=== PATIENT | female | born 1950 | race Caucasian/White ===

== ENCOUNTER 2020-07-15 06:02 | Outpatient (REF) | payer MEDICARE, SELFPAY | END 2020-07-15 06:03 | disposition home or self-care (01) | LOC: HO.LAB 06:02 | PROVIDERS: Visit Provider Internal Medicine | DX: Z20.828 Contact with and (suspected) exposure to other viral communicable diseases (principal) | CPT/HCPCS: C9803; U0003 ==

== ENCOUNTER 2021-06-25 07:31 | Outpatient (REF) | payer MEDICARE, SELFPAY ==
[2021-06-25 07:57] LABS: Hematocrit 40.8 % (37-47); Hemoglobin 13.2 g/dl (12.0-16.0); Mean Corpuscular HGB Conc 32.4 g/dl (31.0-35.0); Mean Corpuscular Hemoglobin 31.3 pg (27.0-33.0); Mean Corpuscular Volume 96.7 fL (80-98); Mean Platelet Volume 9.8 fL (9.4-12.3); Platelet Count 236 X10*3/uL (160-400); Red Blood Count 4.22 X10*6/uL (4.20-5.50); Red Cell Distribution Width 12.3 % (11.0-16.0); White Blood Count 6.1 X10*3/uL (4.8-10.8)
[2021-06-25 08:17] LABS: Alanine Aminotransferase 11 U/L (0-31); Albumin Level 4.1 g/dL (3.5-5.0); Alkaline Phosphatase 74 U/L (39-117); Anion Gap 11 (12-20); Aspartate Amino Transferase 15 U/L (5-31); Bilirubin Total 0.9 mg/dL (0.0-1.0); Blood Urea Nitrogen 9 mg/dL (9-16); Calcium 9.1 mg/dL (8.4-10.2); Carbon Dioxide 27 mmol/L (22-29); Chloride 107 mmol/L (96-108); Estimated Glomerular Filt Rate > 60; Glucose Fasting 93 mg/dL (60-99); Potassium 4.9 mmol/L (3.3-5.1); Sodium 140 mmol/L (135-145); Total Protein 6.8 g/dL (6.5-8.0)
[2021-06-25 08:39] LABS: TSH reflex Free T4 1.44 uIU/mL (0.32-4.0)
== END 2021-06-25 07:32 | disposition home or self-care (01) ==
LOC: HO.LAB 07:31
PROVIDERS: PCP Hospitalist; Visit Provider Hospitalist
DX: Z00.01 Encounter for general adult medical examination with abnormal findings (principal)
CPT/HCPCS: 36415; 80053; 84443; 85027

== ENCOUNTER 2022-08-02 13:36 | Emergency (ER) | payer OTHER, MEDICARE, SELFPAY ==
--- NOTE | ~2022-08-02 | XR_ITS ---
EXAMINATION: XR hand LT min 3V CLINICAL INFORMATION: Trauma COMPARISON: None TECHNIQUE: 3 views of the hand XR/XR hand LT min 3V FINDINGS/IMPRESSION: No fracture or dislocation. Moderate degenerative changes of the third distal interphalangeal joint, with mild degenerative changes at the additional distal interphalangeal joints. Soft tissues are unremarkable, with no radiopaque retained foreign body.
[2022-08-02 14:01] VITALS: BP 134/57; PULSE 84; RESP 18; TEMP 36.4; O2SAT 97; BMI 28.9
--- NOTE | 2022-08-02 14:01 | ED_ITS ---
HPI - Extremity Injury (Upper) General Chief Complaint: Wound/Laceration Stated Complaint: Finger lac/work inj Time Seen by Provider: 08/02/22 15:28 Source: patient Mode of arrival: ambulatory Limitations: no limitations History of Present Illness HPI narrative: 72-year-old female here with laceration to the left 1st finger. Patient reports she cut her finger on a rolling cage at work. No weakness, numbness or tingling of the digit. Tetanus is up-to-date. Related Data Previous Rx's Medication Instructions Recorded naproxen 500 mg tablet,delayed 500 mg PO BID PRN pain, moderate 1 12/02/21 release month #60 tabs cyclobenzaprine 10 mg tablet 10 mg PO TID PRN muscle spasm 1 03/04/22 month #90 tabs gabapentin 600 mg tablet 600 mg PO BEDTIME 1 month #30 tabs 03/04/22 meloxicam 15 mg tablet 15 mg PO DAILY #30 tabs 03/04/22 Allergies Allergy/AdvReac Type Severity Reaction Status Date / Time No Known Drug Allergies Allergy Mild NONE Verified 06/15/22 16:00 [NO KNOWN DRUG ALLERGIES] Review of Systems Review of Systems: Yes all other systems are reviewed and are negative Constitutional: Constitutional: Reports no additional constitutional complaints, Denies body ache(s), Denies chills, Denies fever(s), Denies headache(s) and Denies weakness Eyes: Eyes: Reports no additional eye complaints and Denies change in vision ENT: Reports system reviewed and no additional complaints, except as documented, Denies dizziness, Denies headache(s), Denies nasal congestion, Denies nasal discharge and Denies neck pain Cardiovascular: Cardiovascular: Reports no additional cardiovascular complaints, Denies chest pain, Denies leg edema and Denies dyspnea Respiratory: Respiratory: Reports no additional respiratory complaints, Denies cough and Denies dyspnea Gastrointestinal: Gastrointestinal: Reports no additional gastrointestinal complaints, Denies abdominal pain, Denies diarrhea, Denies nausea and Denies vomiting Genitourinary: Genitourinary: Reports no additional female genitourinary complaints and Denies urinary incontinence Musculoskeletal: Musculoskeletal: Reports no additional musculoskeletal complaints, Denies back pain, Denies arthralgias, Denies joint swelling, Denies neck pain, Denies numbness and Denies tingling Integumentary/Breasts: Skin/Breast: Reports system reviewed and no additional complaints, except as docu and Denies rash Neurologic: Reports system reviewed and no additional complaints, except as documented, Denies Abnormal speech present, Denies dizziness, Denies headache(s), Denies numbness, Denies tingling and Denies weakness PMFSH Past Medical History Attestation statement: The following information was validated with the patient. Source: old records reviewed and nursing notes reviewed Medical History Advanced cardiac disease No pertinent past medical history Surgical History History of cervical spinal surgery History of knee replacement procedure of right knee History of lumbar fusion History of medial meniscus repair of right knee History of open reduction and internal fixation (ORIF) procedure Family History Family History Father Emphysema lung Mother TIA (transient ischemic attack) Alzheimers disease Sister Breast cancer Son Hypertension Down syndrome Daughter In good health Social History Social History Housing: House Patient Tobacco Use Status: Never used Tobacco e-Cigarette/Vaping Use: Never Used Second Hand Smoke Exposure: No Advance Directives: No Advance Directives Information Provided: Yes service: No Current occupational status: employed Cognitive needs: No Hearing needs: No Vision needs: No Physical Exam Vital Signs: Vital Signs: Last Vital Signs Temp 97.6 F 08/02/22 14:01 Pulse 84 08/02/22 14:01 Resp 18 08/02/22 14:01 BP 134/57 L 08/02/22 14:01 Pulse Ox 97 08/02/22 14:01 O2 Del Method 08/02/22 14:01 BMI result Body Mass Index 28.9 Const: General: cooperative, healthy appearing, comfortable and no acute distress Orientation/consciousness: patient oriented x3 Limitations: no limitations HEENT: Head: Yes normal to inspection Ears: hearing grossly normal bilaterally General nose exam: Normal external nose present Face and sinus: Yes normal facial exam Mouth: Normal oral and palatal mucosa present Throat: Yes posterior oropharynx normal Eyes: General: appearance normal, both eyes and all related structures Pupils: Equal, round and reactive pupils present Neck: Neck: Yes normal visual inspection Chest: Chest palpation & inspection: normal inspection of the chest Resp: Effort & Inspection: normal respiratory effort Auscultation: clear to auscultation bilaterally Cardio: Rate: regular rate Rhythm: regular rhythm Peripheral pulses: Peripheral pulses 2+ throughout GI: Inspection: Yes normal to inspection Palpation (GI): Soft to palpation and nontender Auscultation: normal bowel sounds Back/Spine/Pelvis: Thoracic/Lumbar Spine: thoracic and lumbar spine normal to inspection Skin: General skin exam: no rashes or lesions noted Neuro: General: patient oriented x3, no focal motor deficits and normal sensation to monofilament Cranial nerves: Yes Equal, round and reactive pupils present Cognition (Neuro): normal cognition Speech: No Abnormal speech present Gait exam (Neuro): Normal gait present Motor exam (neuro): 5/5 motor strength present throughout Extrem: Other: To the dorsal left index finger there is a 2cm laceration. FROM of the digit. Sensation normal. General: Yes normal to inspection Course Course Course Narrative: This is rapid medical exam. Deferred additional HPI, ROS, PE to the primary provider. 72 yo female [id number] here with laceration to the left index finger from crush injury while working. Tetanus is up-to-date. Will check x-rays. Patient will need wound repair with sutures. VSS Reevaluation(s) Reevaluation #1: X-ray shows no bony abnormality. See procedure note for wound repair Medications Administered Discontinued Medications Generic Name Dose Route Start Last Admin Trade Name Freq PRN Reason Stop Dose Admin Lidocaine HCl 2 ml 08/02/22 15:04 08/02/22 15:08 Lidocaine Hcl 1 % Mpf 2 Ml Vial INFILTRATI 08/02/22 15:05 2 ml ONCE ONE Administration Lidocaine HCl 2 ml 08/02/22 15:04 08/02/22 15:08 Lidocaine Hcl 1 % Mpf 2 Ml Vial INFILTRATI 08/02/22 15:05 2 ml ONCE ONE Administration MDM - Extremity Injury (Upper) MDM Narrative Medical decision making narrative: 72-year-old female [id number] here with laceration to the left index finger. Tetanus is up-to-date. There was a crush injuries or x-ray will be obtained. Patient will need laceration repair with sutures. See procedure note Medical Records Attestation: I reviewed the patient's medical records. Lab Data Attestation: I reviewed the patient's lab results. Imaging Data hand x/-ray: Attestation: I personally reviewed and interpreted this imaging study as follows: Radiologist's impression: [address] [address] XRay Report Signed Patient: Simin Tavarez MR#: [id number] : 1950 Acct:[id number] Age/Sex: 72 / F ADM Date: 08/02/22 Loc: HO.ED Attending Dr: Ordering Physician: Valentina Gregory NP Date of Service: 08/02/22 Procedure(s): XR hand LT min 3V Accession Number(s): [id number] cc: Valentina Gregory NP~ EXAMINATION: XR hand LT min 3V CLINICAL INFORMATION: Trauma? COMPARISON: None? TECHNIQUE: 3 views of the hand ? XR/XR hand LT min 3V FINDINGS/IMPRESSION: ? No fracture or dislocation. ? Moderate degenerative changes of the third distal interphalangeal joint, with mild degenerative changes at the additional distal interphalangeal joints. ? Soft tissues are unremarkable, with no radiopaque retained foreign body. Procedures Laceration Laceration 1: Site: hand (index finger) Side (If applicable): left Size (cm): 2 Description: linear Depth: simple, single layer Pre-repair: wound explored and irrigated extensively Skin layer closed with: vicryl Size (cm): 5-0 Number of sutures: 5 Technique: simple, interrupted Nerve Block Nerve Block 1: Local Anesthetic: lidocaine 1% Amount of anesthesia used (mL): 2 Side: left Nerve Blocks: digital Procedure Successful: Yes Patient Tolerated Procedure: well Complications: none Discharge Plan Discharge Clinical Impression: Laceration Patient Disposition: Home, Self-Care Instructions: Finger Laceration (ED) Additional Instructions: sutures out in 7-10 days Prescriptions: No Action gabapentin 600 mg tablet 600 mg PO BEDTIME 30 Days Qty: 30 0RF Rx Instructions: take one tab at bed time for 5 days if not improved increase to one and a half at bed time cyclobenzaprine 10 mg tablet 10 mg PO TID PRN (Reason: muscle spasm) 30 Days Qty: 90 1RF meloxicam 15 mg tablet 15 mg PO DAILY Qty: 30 1RF naproxen 500 mg tablet,delayed release (DR/EC) 500 mg PO BID PRN (Reason: pain, moderate) 30 Days Qty: 60 4RF Referrals: Marian Nur LABOR RELATIONS SUPERVISOR [Primary Care Provider] - 1 week Interventions: ED Discharge Assessment Last Done: 08/02/22 15:28 Discharge Date/Time: 08/02/22 15:35
[2022-08-02] MEDS: Lidocaine HCl 1 % MPF 2 ML VIAL INFILTRATI ×2 (15:08)
== END 2022-08-02 15:35 | disposition home or self-care (01) ==
LOC: HO.ED 15:35
PROVIDERS: Emergency Provider Emergency Medicine; PCP Hospitalist
DX: S61.412A Laceration without foreign body of left hand, initial encounter (principal); W26.9XXA Contact with unspecified sharp object(s), initial encounter; Y93.9 Activity, unspecified; Y92.9 Unspecified place or not applicable; Y99.0 Civilian activity done for income or pay
CPT/HCPCS: 12001; 73130; 99282; 99283

== ENCOUNTER 2022-08-25 08:59 | Outpatient (REF) | payer MEDICARE, SELFPAY ==
--- NOTE | ~2022-08-25 | XR_ITS ---
EXAMINATION: XR KNEE, LEFT CLINICAL INFORMATION: Sprain COMPARISON: None TECHNIQUE: Four views of the left knee. FINDINGS: Bone alignment is normal. No fracture or dislocation. Osteopenia. Chondrocalcinosis. Moderate joint effusion. XR/XR knee LT 4V IMPRESSION: No fracture or dislocation. Osteopenia. Chondrocalcinosis. Joint effusion.
== END 2022-08-25 09:00 | disposition home or self-care (01) ==
LOC: HO.HMGCX 08:59
PROVIDERS: PCP Hospitalist; Visit Provider Internal Medicine
DX: S83.92XA Sprain of unspecified site of left knee, initial encounter (principal)
CPT/HCPCS: 73564

== ENCOUNTER 2022-09-10 07:39 | Outpatient (REF) | payer MEDICARE, SELFPAY ==
--- NOTE | ~2022-09-10 | XR_ITS ---
EXAMINATION: XR KNEE AP STANDING XR KNEE LEFT AXIAL CLINICAL INFORMATION: Pain. COMPARISON: Prior radiographs, most recently 08/25/2022. TECHNIQUE: AP bilateral standing view of the knees was obtained. FINDINGS: Bony alignment and mineralization are normal. No significant varus or valgus configuration is seen bilaterally. The lateral, medial and patellofemoral joint space compartments of the left knee are well-maintained. There is mild chondrocalcinosis of the lateral joint space compartment. No fracture or dislocation is seen. There is no foreign body. There is an intact right knee total arthroplasty. XR/XR knee standing BI IMPRESSION: 1. The joint space compartments of the left knee are well-maintained. 2. There is mild chondrocalcinosis of the lateral joint space compartment of the left knee, which can be associated with CPPD. 3. There is an intact right knee total arthroplasty.
--- NOTE | ~2022-09-10 | XR_ITS ---
EXAMINATION: XR KNEE AP STANDING XR KNEE LEFT AXIAL CLINICAL INFORMATION: Pain. COMPARISON: Prior radiographs, most recently 08/25/2022. TECHNIQUE: AP bilateral standing view of the knees was obtained. FINDINGS: Bony alignment and mineralization are normal. No significant varus or valgus configuration is seen bilaterally. The lateral, medial and patellofemoral joint space compartments of the left knee are well-maintained. There is mild chondrocalcinosis of the lateral joint space compartment. No fracture or dislocation is seen. There is no foreign body. There is an intact right knee total arthroplasty. XR/XR knee LT 1V IMPRESSION: 1. The joint space compartments of the left knee are well-maintained. 2. There is mild chondrocalcinosis of the lateral joint space compartment of the left knee, which can be associated with CPPD. 3. There is an intact right knee total arthroplasty.
== END 2022-09-10 07:40 | disposition home or self-care (01) ==
LOC: HO.HOSX 07:39
PROVIDERS: Visit Provider Physician Assistant
DX: M17.12 Unilateral primary osteoarthritis, left knee (principal); M25.862 Other specified joint disorders, left knee
CPT/HCPCS: 20610; 73560; 73565; 99202; J1040

== ENCOUNTER → 2023-02-15 11:14 | Outpatient (BNVA) | payer MEDICARE, SELFPAY | PROVIDERS: PCP Hospitalist; Visit Provider Physician Assistant | DX: M17.12 Unilateral primary osteoarthritis, left knee (principal) | CPT/HCPCS: 20610; 99212; J1040 ==

== ENCOUNTER 2023-03-22 10:02 | Outpatient (AMB) | payer MEDICARE, SELFPAY ==
--- NOTE | 2023-03-22 10:06 | A.OFFVIS_ITS ---
Intake Vital Signs 03/22/23 10:07 Height 5 ft 4 in Weight 153 lb BMI 26.3 Intake Visit Reasons: discuss LT TKA Intake Note: Simin Stern is a 72 year old female who presents today to discuss upcoming Left TKA 06/22/23. Allergies No Known Drug Allergies [NO KNOWN DRUG ALLERGIES] Allergy (Mild, Verified 02/15/23 11:21) NONE HPI discuss LT TKA HPI Details Simin is a 72 year old woman with left knee OA, who presents to discuss her upcoming TKA, DOS: 06/22/23. She has pain with daily activity, worse with prolonged walking or using stairs. She says she used to walk several miles a day, but is now limited to ~1 mile by pain. She has been following with THIEN Sanchez and received multiple steroid injections, with some relief. Her most recent was on 02/15/23. She finds some relief from Naproxen. She has a Hx of a right TKA done by Dr. Drake in 2014. She has no complaints in regards to her right knee She complains of pain in her shoulder, mostly when lying down. She takes a muscle relaxer for this. [facility], [facility] Medical History Advanced cardiac disease No pertinent past medical history Surgical History History of cervical spinal surgery History of knee replacement procedure of right knee History of lumbar fusion History of medial meniscus repair of right knee History of open reduction and internal fixation (ORIF) procedure Family History Father Emphysema lung Mother TIA (transient ischemic attack) Alzheimers disease Sister Breast cancer Son Hypertension Down syndrome Daughter In good health Social History Housing: House Patient Tobacco Use Status: Never used Tobacco e-Cigarette/Vaping Use: Never Used Second Hand Smoke Exposure: No service: No Current occupational status: employed Current occupation: [employer]/ rt hand Cognitive needs: No Hearing needs: No Vision needs: No Review of Systems Const All systems reviewed & are unremarkable except as noted in HPI and below Physical Exam Vital Signs: BMI result Body Mass Index 26.3 Const General: no acute distress, alert and awake Orientation/consciousness: patient oriented x3 HEENT Head: Yes normocephalic and Yes atraumatic Eyes EOM: EOMs intact bilaterally Resp Effort & Inspection: normal respiratory effort and able to speak in complete sentences Cardio Jugular venous distension: no JVD Skin General skin exam: turgor normal Rashes: no rashes Neuro General: patient oriented x3 Extrem Other: Left Knee: TTP medial joint line 0-135 degrees ROM Psych Appearance: grossly normal Affect: normal affect Attitude: cooperative Results Reviewed Results Reviewed: I personally reviewed relevant radiographs. Left knee chondrocalcinosis and moderate PF OA Assessment & Plan Assessment & Plan (1) Patellofemoral arthritis of left knee: Code(s): M17.12 - Unilateral primary osteoarthritis, left knee Plan: This is a 72 year old woman with moderate left knee OA. She has pain with daily activity, worse with prolonged ambulation or using stairs. She says she is limited in her ability to walk without pain, feels limited in her ADLs and that her QOL is diminished. She has a hx of some relief from steroid injection, but feels this is not as effective for her pain as it was in the past. SHe takes Naprosyn regularly and has for almost one year. Her most recent injection was on 02/15/23. I discussed her diagnosis and treatment options. She has a successful TKA in the past. I discussed the risks, benefits, and alternatives including, but not limited to, the risk of pain, infection, stiffness, need for further surgery as well as potential medical complications such as blood clots, pulmonary embolism and cardiac complications. I discussed the recovery timeline and process as well as the importance of PT. Simin is a good candidate for this surgery, and she wishes to proceed with this decision. She is scheduled for surgery on 06/22/23. Plan Scribed for Jeremiah Neumann MD by Rodríguez Castro medical cost consultant, on 03/22/23 at 10:25 AM, EST. Coding Level of Care Code Est Pt Level 4 (01136) Diagnoses Patellofemoral arthritis of left knee M17.12
[2023-03-22 10:07] VITALS: BMI 26.3
== END 2023-03-22 11:30 | disposition home or self-care (01) ==
PROVIDERS: PCP Hospitalist; Visit Provider Orthopaedic Surgery
DX: M17.12 Unilateral primary osteoarthritis, left knee (principal)
CPT/HCPCS: 99214

== ENCOUNTER → 2023-03-22 10:02 | Outpatient (BNVA) | payer MEDICARE, SELFPAY | PROVIDERS: PCP Hospitalist; Visit Provider Orthopaedic Surgery | DX: M17.12 Unilateral primary osteoarthritis, left knee (principal) | CPT/HCPCS: 99212 ==

== ENCOUNTER 2023-04-06 10:00 | Outpatient (RCR) | payer MEDICARE, SELFPAY ==
--- NOTE | 2023-03-09 09:30 | MHC.PT.EP ---
[facility] [place] Office [place] Office [place] Office [address] Austen Renee [address] [phone] F: [phone] F: [phone] F: [phone] F: [phone] Physical Therapy Plan of Care Date of Evaluation: Date of Surgery: May Diagnosis: PREHAB TKR, OA L KNEE Assessment: Pt IS 72 YO F REFERRED TO PT FROM [facility] ([facility]) FOR PREHAB L TKR. HAD R TKR IN NOVEMBER 2014. Pt TO HAVE L TKR May. HAD CORTISONE SHOT IN JANUARY, ALSO HAD CORTISONE SHOT IN AUG (LASTED TILL DECEMBER). TO MEET DR MTZ February PRESENTS TO PT WITH GOOD OVERALL ROM AND STRENGTH IN LES BUT WITH PAIN IN KNEES END RANGE OF FLEXION. Pt REPORTS LE CRAMPING. HAD R TKR 8 YRS AGO WITH GOOD RESULTS. SHOULD BENEFIT FROM PT 1X/WK TO HELP WITH LE FLEXIBILITY AND ENDURANCE TO HELP DECREASE CRAMPING AND PREPARE FOR L TKR IN MAY. Frequency and Duration: The patient will be seen 1X/WK X 4 WKS Short Term Goals: 1. INCREASED AWARENESS LE CARE 2. INCREASED AWARENESS TKR/PT INTERVENTION Alf Goals: 1. I HEP WITH DC EX PLAN 2. Pt TO REPORT LESS LE CRAMPING Treatment Plan: Modalities to reduce pain, spasms and effusion. Manual therapy to restore motion and function. Therapeutic exercise to improve strength and flexibility. Neuromuscular re-education for posture and balance. Therapeutic activities to return to functional activities of daily living. Electronically signed by: RAQUEL KO PT Please sign and return to therapist. Thank you for your referral.
--- NOTE | 2023-04-06 13:35 | MHC.PT.DC ---
[facility] [place] Office [place] Office [place] Office [address] [place]en Renee [address] [phone] F: [phone] F: [phone] F: [phone] F: [phone] Physical Therapy Discharge Report Diagnosis: PREHAB TKR, OA L KNEE Date of Surgery: May Date of Evaluation: 03/09/23 Date of Discharge: 04/06/23 Treatments to Date: 5 Cancellations to Date: No Shows to Date: Discharge Status: Achieved Goals Improved Function Independent with HEP Discharge Summary: HAS MET PT GOALS. TO HAVE TKR IN MAY. WILL LIKELY SEE POST OP Electronically signed by: RAQUEL KO PT Please sign and return to therapist. Thank you for your referral.
== END 2023-04-06 13:37 | disposition home or self-care (01) ==
LOC: HO.PT 10:00
PROVIDERS: PCP Hospitalist; Visit Provider Physician Assistant
DX: M17.12 Unilateral primary osteoarthritis, left knee (principal)
CPT/HCPCS: 97110; 97140; 97161; 97530; 97535

== ENCOUNTER 2023-05-26 15:31 | Outpatient (AMB) | payer MEDICARE, SELFPAY ==
--- NOTE | 2023-05-26 15:35 | MHC.PC.OV ---
Vital Signs 05/26/23 15:36 Height 5 ft 4 in Weight 151 lb 4 oz BMI 26.0 BP 124/74 Blood Pressure Location Rt brachial Position Sitting Respiration 12 Pulse 84 Pulse Source Pulse Oximeter Temp 97.8 F Temp Source Temporal Artery Scan Pulse Oximetry (%) 99 Oxygen Delivery Method Room Air Intake Visit Reasons: 06/22/[facility] [place]o/ Lt total knee Arthoplasty Intake Note: Patient states that her right arm has been bothering her again. Card Hanger Required: No Accompanied by: Self / Same As Patient Allergies No Known Drug Allergies [NO KNOWN DRUG ALLERGIES] Allergy (Mild, Verified 05/26/23 16:00) NONE Medication List - Last Reconciled 05/26/23 by Norma Zhang CNP naproxen (EC-Naproxen) 500 mg PO BID PRN Tobacco use date assessed: 12/08/22 Fall risk assessment: No Falls in past year Last assessed Fall Risk: 05/26/23 Dental Screening Dental Screen Date: 05/26/23 Did you have a dental visit in the last 12 months?: Yes Did you have a dental problem in the last 6 months where you did not have access to dental care?: No Was dental information given to patient?: Patient has dentist HPI HPI Comments History of Present Illness Details 73 y/o female presents for a preop exam She notes she has a procedure for left total knee arthroplasty schedule [place]. Neumann[place] [facility] [place] She has history of patellofemoral arthritis of the left knee She has not had blood work done in almost 2 years She reports lateral right right upper arm, proximal to the shoulder, off/on for the past weeks, worst at night and with ROM. She describes the pain as soreness which started last January and completely resolved with Naproxen prescribed by her PCP. She has been taking naproxen intermittently without relief. No tingling, numbness, or loss of sensation. She denies fall, injury, or trauma. [facility] Medical History No pertinent past medical history Surgical History History of knee replacement procedure of right knee History of cervical spinal surgery History of lumbar fusion History of medial meniscus repair of right knee History of open reduction and internal fixation (ORIF) procedure Family History Father Emphysema lung Mother TIA (transient ischemic attack) Alzheimers disease Sister Breast cancer Son Hypertension Down syndrome Daughter In good health Social History Housing: House Patient Tobacco Use Status: Never used Tobacco e-Cigarette/Vaping Use: Never Used Second Hand Smoke Exposure: No service: No Current occupational status: retired Cognitive needs: No Hearing needs: No Vision needs: No Review of Systems Const Details: Const Denies chills, Denies fatigue, Denies fever(s), Denies headache(s) and Denies weakness ENT Denies dizziness and Denies headache(s) Card Denies chest pain, Denies lightheadedness, Denies dyspnea and Denies other (Palpitations) Resp Denies cough, Denies dyspnea, Denies wheezing and Denies other ( shortness of breath) GI Denies abdominal pain, Denies melena, Denies hematochezia, Denies change in bowel habits, Denies dyspepsia and Denies nausea Denies hematuria and Denies dysuria Musc Reports as per HPI Skin/Breast Denies rash, Denies unusual bruising and Denies wounds Neuro Denies abnormal gait, Denies dizziness, Denies headache(s), Denies memory loss, Denies numbness, Denies Sensory deficit (Neuro), Denies tingling and Denies weakness Psych Denies anxiety, Denies depression, Denies memory loss Endo Denies cold intolerance, Denies fatigue, Denies heat intolerance, Denies polydipsia and Denies polyuria Aller/Immun Denies wheezing Physical exam (Primary Care) Vital Signs: Last Vital Signs Temp 97.8 F 05/26/23 15:36 Pulse 84 05/26/23 15:36 Resp 12 05/26/23 15:36 BP 124/74 05/26/23 15:36 Pulse Ox 99 05/26/23 15:36 Oxygen Delivery Method Room Air 05/26/23 15:36 BMI result Body Mass Index 26.0 Tobacco/Smoking Status: Tobacco use Status Tobacco use date assessed 12/08/22 05/26/23 15:47 Patient Tobacco Use Status Never used Tobacco 05/26/23 15:47 e-Cigarette/Vaping Use Never Used 05/26/23 15:47 Const Other: General: no acute distress and well developed Nutritional Appearance: well nourished Orientation/consciousness: patient oriented x3 [facility] Head: Yes normocephalic and Yes atraumatic Eyes General: appearance normal, both eyes and all related structures Pupils: Equal, round and reactive pupils present EOM: EOMs intact bilaterally Resp Effort & Inspection: normal respiratory effort Auscultation: clear to auscultation bilaterally Cardio Rate: regular rate Rhythm: regular rhythm Heart sounds: S1 normal heart sound present, S2 normal heart sound present, no gallops, no murmurs and no rubs GI Palpation (GI): No Abdominal aortic bruit present, Soft to palpation, nontender, No hepatosplenomegaly present and No Rebound tenderness present Auscultation: normal bowel sounds General: Yes no CVA tenderness Back/Spine/Pelvis Back: no CVA tenderness Cervical Spine: cervical ROM normal and No Cervical spine tenderness Thoracic/Lumbar Spine: thoraco-lumbar ROM normal, No pain with thoraco-lumbar ROM, No thoracic spinal tenderness and No lumbar spinal tenderness Extrem General: Yes normal to inspection, No edema and No calf tenderness Tenderness to palpation of the lateral right biceps. No edema, erythema, or visible signs of trauma Skin General: warm and dry. Normal skin color. Normal skin turgor Lesions: no lesions Rashes: no rashes Trauma: no lacerations or abrasions Wounds: no wounds Nails: normal Neuro General: patient oriented x3, gait normal and no focal neuro deficit Cranial nerves: Yes Equal, round and reactive pupils present Cognition (Neuro): normal cognition Gait exam (Neuro): Normal gait present Sensory Exam: No Sensory deficit (Neuro) Psych Appearance: grossly normal Affect: normal affect Attitude: cooperative Thought process: Normal thought process present Assessment and Plan Assessment & Plan (1) Preop examination: Code(s): Z01.818 - Encounter for other preprocedural examination Plan: Normal physical exam No current physical contraindications for left total knee arthroplasty He has not had blood work done in almost 2 years. CBC and CMP ordered. Advised to fast for 10-12 hours and get blood work done. Will review lab results and make changes to her care plan if warranted. She verbalized understanding and agreed with the plan. (2) Right arm pain: Code(s): M79.601 - Pain in right arm Plan: Reports lateral right right upper arm, proximal to the shoulder, off/on for the past weeks, worst at night and with ROM. She describes the pain as soreness. No fall, injury, or trauma. Likely muscle strain Tylenol ordered. Take as prescribed Warm/cool compresses encouraged Return with worsening or new symptoms Verbalized understanding and agreed with treatment plan. Orders: Orders Complete Blood Count Auto Diff Today Z01.818 - Encounter for other preprocedural examination Comprehensive [place]. Panel Fast Today Z01.818 - Encounter for other preprocedural examination Medications: New acetaminophen ER (Tylenol 8 Hour) 650 mg PO Q8H PRN 60 tabs 1RF pain Discontinued naproxen (EC-Naproxen) always take with food Discontinued Reason: Doctor's Order 500 mg PO BID PRN 60 tabs 2RF pain M19.90 - Unspecified osteoarthritis, unspecified site Coding Level of Care Code Est Pt Level 3 (81442) Diagnoses Preop examination Z01.818 Right arm pain M79.601
[2023-05-26 15:36] VITALS: BP 124/74; PULSE 84; RESP 12; TEMP 36.6; O2SAT 99; BMI 26.0
== END 2023-05-26 16:17 | disposition home or self-care (01) ==
PROVIDERS: PCP Hospitalist; Visit Provider Nurse Practitioner Family
DX: Z01.818 Encounter for other preprocedural examination (principal); M79.601 Pain in right arm
CPT/HCPCS: 99213

== ENCOUNTER 2023-05-27 07:04 | Outpatient (REF) | payer MEDICARE, SELFPAY ==
[2023-05-27 07:17] LABS: MANUAL DIFF FLAG NO
[2023-05-27 07:33] LABS: Basophils Absolute Auto 0.1 X10*3/uL (0.0-0.2); Basophils Percent Auto 0.9 % (0-2); Eosinophils Absolute Auto 0.2 X10*3/uL (0.0-0.4); Eosinophils Percent Auto 2.4 % (0-4); Hematocrit 41.6 % (37.0-47.0); Hemoglobin 13.8 g/dl (12.0-16.0); Imm Gran Abs Auto 0.02 X10*3/uL (0.00-0.03); Imm Gran Pct Auto 0.3 % (0.0-0.4); Lymphocytes Absolute Auto 2.3 X10*3/uL (1.2-4.9); Lymphocytes Percent Auto 34.5 % (20-40); Mean Corpuscular HGB Conc 33.2 g/dl (31.0-35.0); Mean Corpuscular Hemoglobin 31.2 pg (27.0-33.0); Mean Corpuscular Volume 94.1 fL (80.0-98.0); Mean Platelet Volume 9.7 fL (9.4-12.3); Monocytes Absolute Auto 0.5 X10*3/uL (0.1-1.2); Monocytes Percent Auto 8.1 % (2-11); Neutrophils Absolute Auto 3.6 x10*3/uL (2.0-8.3); Neutrophils Percent Auto 53.8 % (45-73); Platelet Count 261 X10*3/uL (160-400); Red Blood Count 4.42 X10*6/uL (4.20-5.50); Red Cell Distribution Width 11.7 % (11.0-16.0); White Blood Count 6.6 X10*3/uL (4.8-10.8)
[2023-05-27 07:54] LABS: Alanine Aminotransferase 8 U/L (0-31); Albumin Level 4.1 g/dL (3.5-5.0); Alkaline Phosphatase 76 U/L (39-117); Anion Gap 12 (12-20); Aspartate Amino Transferase 12 U/L (5-31); Bilirubin Total 0.6 mg/dL (0.0-1.0); Blood Urea Nitrogen 12 mg/dL (9-16); Calcium 9.1 mg/dL (8.4-10.2); Carbon Dioxide 28 mmol/L (22-29); Chloride 108 mmol/L (96-108); Estimated Glomerular Filt Rate > 60; Glucose Fasting 93 mg/dL (60-99); Potassium 4.2 mmol/L (3.3-5.1); Sodium 144 mmol/L (135-145); Total Protein 6.8 g/dL (6.5-8.0)
== END 2023-05-27 07:05 | disposition home or self-care (01) ==
LOC: HO.LAB 07:04
PROVIDERS: PCP Nurse Practitioner Family; Visit Provider Nurse Practitioner Family
DX: Z01.818 Encounter for other preprocedural examination (principal)
CPT/HCPCS: 36415; 80053; 85025

== ENCOUNTER 2023-06-17 12:45 | Outpatient (AMB) | payer MEDICARE, SELFPAY ==
--- NOTE | 2023-06-17 12:53 | MHC.OFFVIS ---
Intake Vital Signs 06/17/23 12:54 Height 5 ft 4 in Weight 151 lb BMI 25.9 Intake Visit Reasons: Pre-Op LT TKA 06/22/23NE Intake Note: Simin Stern a 73 year old female presents today for a preoperative left TKA, 06/22/23. Pain management agreement reviewed and signed. Allergies No Known Drug Allergies [NO KNOWN DRUG ALLERGIES] Allergy (Mild, Verified 06/17/23 12:57) NONE Medication List - Last Reconciled 06/17/23 by Norris Sanchez PA-C acetaminophen ER (Tylenol 8 Hour) 650 mg PO BID HPI HPI Comments History of Present Illness Details Ms Tavarez presents to the office today for preop visit. She is scheduled for left total knee arthroplasty with Dr. Neumann. She continues to have ongoing pain and difficulty with ambulation in the left knee, which is affecting her quality of life; therefore, she has elected to move forward with surgery. [facility] Medical History (Updated 06/08/23 @ 12:09 by Rody Kramer RN) Post-operative nausea and vomiting Hx of thoracic outlet syndrome Arthritis Surgical History H/O colonoscopy History of knee replacement procedure of right knee History of cervical spinal surgery History of lumbar fusion History of medial meniscus repair of right knee History of open reduction and internal fixation (ORIF) procedure Family History Father Emphysema lung Mother TIA (transient ischemic attack) Alzheimers disease Sister Breast cancer Son Hypertension Down syndrome Daughter In good health Social History Household Members Other:: son Housing: House Are you a primary career placement services counselor to a significant other at home: No Do you presently have visiting nurse or other home services: No Patient Tobacco Use Status: Never used Tobacco e-Cigarette/Vaping Use: Never Used Second Hand Smoke Exposure: No service: No Current occupational status: retired Cognitive needs: No Hearing needs: No Vision needs: No Review of Systems Const All systems reviewed & are unremarkable except as noted in HPI and below Physical Exam Vital Signs: BMI result Body Mass Index 25.9 Const General: cooperative and no acute distress Orientation/consciousness: patient oriented x3 HEENT Head: Yes normal to inspection, Yes normocephalic and Yes atraumatic Eyes General: appearance normal, both eyes and all related structures Neck Neck: Yes normal visual inspection and Yes no lymphadenopathy Resp Effort & Inspection: normal respiratory effort and able to speak in complete sentences Cardio Rate: regular rate Peripheral pulses: Peripheral pulses 2+ throughout GI Inspection: Yes normal to inspection Palpation (GI): Soft to palpation Skin General skin exam: no rashes or lesions noted Neuro General: patient oriented x3 Extrem Other: Left knee: Normal to inspection. No open wound or abrasion. ROM is 0-95 degrees. Calf supple, nontender. NVI. Psych Appearance: grossly normal Mental Status: mental status grossly normal Assessment & Plan Assessment & Plan (1) Patellofemoral arthritis of left knee: Code(s): M17.12 - Unilateral primary osteoarthritis, left knee Plan: I discussed in detail the procedure and what to expect pre and post operatively. We discussed the risks, benefits and alternatives to the surgery as well as the rehabilitation course. The risks; which include, but are not limited to infection, bleeding, nerve injury, ongoing pain, swelling, and stiffness, perioperative risk of injury to bones and soft tissues, and blood clots. I?ve answered all questions and with their understanding they have consented to move forward with Left total knee arthroplasty with Dr. Neumann [facility] [place] Patient Instructions: Scribed for Norris Sanchez PA-C, by Chuck Pepe medical services assistant, on 06/17/2023 at 1:00 PM EST. INorris PA-C, have personally reviewed and agree with the information entered by the scribe. Coding Level of Care Code Est Pt Level 3 (84889) Diagnoses Patellofemoral arthritis of left knee M17.12
[2023-06-17 12:54] VITALS: BMI 25.9
== END 2023-06-17 13:14 | disposition home or self-care (01) ==
PROVIDERS: PCP Hospitalist; Visit Provider Physician Assistant
DX: M17.12 Unilateral primary osteoarthritis, left knee (principal)
CPT/HCPCS: 99213

== ENCOUNTER → 2023-06-17 12:45 | Outpatient (BNVA) | payer MEDICARE, SELFPAY | PROVIDERS: PCP Hospitalist; Visit Provider Physician Assistant | DX: M17.12 Unilateral primary osteoarthritis, left knee (principal) | CPT/HCPCS: 99212 ==

== ENCOUNTER 2023-06-22 05:58 | Day surgery (SDC) | payer MEDICARE, SELFPAY ==
[2023-06-08 12:12] VITALS: BP 139/82; PULSE 79; RESP 20; O2SAT 97; BMI 25.7
--- NOTE | 2023-06-08 12:34 | P.CONAN_ITS ---
Documented by User: Katie Flores NP 06/15/23 12:23 HPI - Anesthesia Eval Consult details Narrative: 73yo F for Left Knee Replacement Total, 06/22/23 No recent illness >4 mets with yardwork PONV. Reassured low risk with anesthesia plan Previously tolerated spinal for Right TKA 2014 (lumbar fusion 2003, lower than spinal anesthesia level per patient) PMFSH Active Problems Active Problems: All Active Problems (Updated 06/08/23 @ 12:09 by Rody Kramer RN) Right arm pain (Acute) Preop examination (Acute) Subchondral sclerosis of knee (Acute) Patellofemoral arthritis of left knee (Acute) Sprain of left knee (Acute) Advanced care planning/counseling discussion (Acute) Screen for colon cancer (Acute) Ear foreign body (Acute) Right shoulder strain (Acute) Annual visit for general adult medical examination with abnormal findings (Acute) Generalized arthritis (Acute) Past Medical History Medical History (Updated 06/08/23 @ 12:09 by Rody Kramer RN) Post-operative nausea and vomiting Hx of thoracic outlet syndrome Arthritis Family History Family History Father Emphysema lung Mother TIA (transient ischemic attack) Alzheimers disease Sister Breast cancer Son Hypertension Down syndrome Daughter In good health Family history of problems with anesthesia: No Surgical History Surgical History H/O colonoscopy History of knee replacement procedure of right knee History of cervical spinal surgery History of lumbar fusion History of medial meniscus repair of right knee History of open reduction and internal fixation (ORIF) procedure History of Problems with Anesthesia: Yes (PONV) Social History Social History Household Members Other:: son Housing: House Are you a primary childcare provider to a significant other at home: No Do you presently have visiting nurse or other home services: No Patient Tobacco Use Status: Never used Tobacco e-Cigarette/Vaping Use: Never Used Second Hand Smoke Exposure: No Use of substances other than those prescribed or required for medical reasons: No Have you been hit, kicked, punched, or otherwise hurt by someone within the past year? If so, by whom?: No Are you DNR?: No Advance Directives: No (states has HCP & MOLST forms completed) Advance Directives Information Provided: Yes (will bring copies DOS) Advance Directives on File: No Recently lost weight without trying: No Eating poorly because of decreased appetite: No Nutrition Risks: No Nutritional Risk Poor oral hygiene: No (upper full denture) service: No Current occupational status: retired Cognitive needs: No Hearing needs: No Vision needs: No Meds Allergies Allergy/AdvReac Type Severity Reaction Status Date / Time No Known Drug Allergies Allergy Mild NONE Verified 06/17/23 12:57 [NO KNOWN DRUG ALLERGIES] Home Medications Medication Instructions Recorded Confirmed Last Taken Type acetaminophen 650 mg 650 mg PO BID pain 06/08/23 06/17/23 Unknown History tablet,extended release (Tylenol 8 Hour) Exam Exam Date and Time: June 08, 2023 1234 Height,Weight and Vital Signs: Height 5 ft 4 in Weight 68.039 kg Last Vital Signs Pulse 79 06/08/23 12:12 Resp 20 06/08/23 12:12 BP 139/82 06/08/23 12:12 Pulse Ox 97 06/08/23 12:12 O2 Del Method Room Air 06/08/23 12:12 Pertinent Lab Results Pertinent Lab Results: Laboratory Tests 05/27/23 07:16 WBC 6.6 Hgb 13.8 Hct 41.6 Plt Count 261 Sodium 144 Potassium 4.2 Chloride 108 Carbon Dioxide 28 BUN 12 Creatinine 0.75 Narrative Narrative: EKG 05/2023 Vent. Rate : 071 BPM Atrial Rate : 071 BPM P-R Int : 210 ms QRS Dur : 084 ms QT Int : 382 ms P-R-T Axes : 060 030 044 degrees QTc Int : 415 ms Sinus rhythm with marked sinus arrhythmia with 1st degree A-V block Otherwise normal ECG When compared with ECG of 23-OCT-2014 15:47, [place] interval has increased Airway Mallampati Class: II TM Dist: >3cm Neck ROM: Full Denture: Upper Heart: RRR Lungs: CTAB Assessment and Plan Assessment Anesthesia Assessment: Anesthesia Plan Discussed and PAT Visit Final Anesthetic Review Family History of Problems with Anesthesia: No History of Problems with Anesthesia: Yes (PONV) Documented by User: Alek De La O MD 06/22/23 07:54 [facility] Past Medical History Medical History (Updated 06/08/23 @ 12:09 by Rody Kramer RN) Post-operative nausea and vomiting Hx of thoracic outlet syndrome Arthritis Family History Family History Father Emphysema lung Mother TIA (transient ischemic attack) Alzheimers disease Sister Breast cancer Son Hypertension Down syndrome Daughter In good health Surgical History Surgical History H/O colonoscopy History of knee replacement procedure of right knee History of cervical spinal surgery History of lumbar fusion History of medial meniscus repair of right knee History of open reduction and internal fixation (ORIF) procedure Social History Social History Household Members Other:: son Housing: House Are you a primary childcare provider to a significant other at home: No Do you presently have visiting nurse or other home services: No Patient Tobacco Use Status: Never used Tobacco e-Cigarette/Vaping Use: Never Used Second Hand Smoke Exposure: No Use of substances other than those prescribed or required for medical reasons: No Have you been hit, kicked, punched, or otherwise hurt by someone within the past year? If so, by whom?: No Are you DNR?: No Advance Directives: No (states has HCP & MOLST forms completed) Advance Directives Information Provided: Yes (will bring copies DOS) Advance Directives on File: No Recently lost weight without trying: No Eating poorly because of decreased appetite: No Nutrition Risks: No Nutritional Risk Poor oral hygiene: No (upper full denture) service: No Current occupational status: retired Cognitive needs: No Hearing needs: No Vision needs: No Meds Allergies Allergy/AdvReac Type Severity Reaction Status Date / Time No Known Drug Allergies Allergy Mild NONE Verified 06/17/23 12:57 [NO KNOWN DRUG ALLERGIES] Home Medications Medication Instructions Recorded Confirmed Last Taken Type acetaminophen 650 mg 650 mg PO BID pain 06/08/23 06/17/23 Unknown History tablet,extended release (Tylenol 8 Hour) Assessment and Plan Final Anesthetic Review ASA Class: II Final Preanesthetic Review: No Changes in Pt Med Stat, Meds/Allgs Chart Reviewed, Consent Obtained/Reviewed and Anes Risks/Benef Reviewed Patient Risk: Low Procedure Risk: Intermediate Anesthetic Plan Anesthetic Plan: Spinal, Regional Block and Agree w/ Assess. and Plan Disposition: Standard PACU
[2023-06-22] VITALS (14 sets, daily range): BP systolic 87–140; BP diastolic 43–81; PULSE 60–94; RESP 16–18; TEMP 36.1–36.9; O2SAT 96–100; BMI 25.7; BMI 29.0; BMI 28.2
--- NOTE | ~2023-06-22 | XR_ITS ---
EXAMINATION: XR KNEE, LEFT CLINICAL INFORMATION: Left total knee COMPARISON: Left knee radiograph from 09/10/2022 TECHNIQUE: Three views of the left knee. FINDINGS: Status post left knee arthroplasty. Orthopedic hardware is grossly intact. No acute visible fracture or dislocation. Postsurgical soft tissue air and ever noted. Joint spaces and alignment are otherwise maintained. XR/XR knee LT 2V IMPRESSION: 1. Status post left knee arthroplasty with intact orthopedic hardware. 2. No acute visible fracture or dislocation. 3. Postsurgical soft tissue air and skin ever noted.
[2023-06-22 06:33] LABS: Hematocrit 40.6 % (37.0-47.0); Hemoglobin 13.3 g/dl (12.0-16.0)
[2023-06-22] MEDS: Lactated Ringers 1,000 ML 100 ML IVCONT ×3 (06:57→19:39)
--- NOTE | 2023-06-22 09:07 | MHC.SHP ---
Pre-Procedural Eval Section A Date of Service: 06/22/23 The patient is an INPATIENT: No Changes since office visit: No Cold of Flu in the past 2 weeks, No New Medical Problems, No Changes in Medication and No Patient answered all questions The History & Physical has been completed within 30 days and I have reviewed it.: Yes Section B Chief Complaint: Unilateral primary osteoarthritis, left knee Allergies: Allergies Allergy/AdvReac Type Severity Reaction Status Date / Time No Known Drug Allergies Allergy Mild NONE Verified 06/17/23 12:57 [NO KNOWN DRUG ALLERGIES] Plan I have reviewed the history and physical and performed a pertinent physical examination on my patient. No changes have occurred unless specified. Time Spent With Patient Time: Total time managing care of this patient today ____ minutes.
--- NOTE | 2023-06-22 09:07 | PM.OP ---
Brief Operative Note Date of Service: 06/22/23 Pre-op diagnosis: left knee OA Post-op diagnosis: same Procedure: Left TKA Implants: Mireya Triahlon press fit cruciate retaining 10/30/10 Surgeon: Jeremiah Neumann MD Anesthesia: regional and spinal Was an Senior Ios Software Engineer used for this Procedure?: Yes Senior [employer]os Software Engineer: Norris Sanchez Estimated blood loss (mL): 100 Tourniquet time (min): 43 IV fluids (mL): 1,000 Pathology: other Condition: stable Disposition: PACU
[2023-06-22] MEDS: HYDROmorphone HCl 0.5 MG/0.5 ML SYRINGE 0.25 MG IVPUSH ×2 (11:35→16:24)
--- NOTE | 2023-06-22 12:59 | P.CONHOSP_ITS ---
History of Present Illness Data of Consult Service Date: 06/22/23 Requesting physician: Norris Sanchez Primary Care Provider: Norma Zhang CNP HPI Reason for consult: medical management 73-year-old female without any significant past medical history admitted to Orthopedic surgery for management of osteoarthritis of the left knee s/p TKA with consult placed to hospitalist service for medical management. The patient does not take any medications at home except for occasional Tylenol. She reports only occasional alcohol use and denies any cigarette smoking or drug use. She is currently reporting discomfort in the left knee as well as some mild postoperative nausea which she has a history of, but otherwise has no complaints. Vital signs are stable. Review of Systems 2 Review of Systems: Yes all other systems are reviewed and are negative [facility] Medical History Post-operative nausea and vomiting Hx of thoracic outlet syndrome Arthritis Family History Father Emphysema lung Mother TIA (transient ischemic attack) Alzheimers disease Sister Breast cancer Son Hypertension Down syndrome Daughter In good health Surgical History H/O colonoscopy History of knee replacement procedure of right knee History of cervical spinal surgery History of lumbar fusion History of medial meniscus repair of right knee History of open reduction and internal fixation (ORIF) procedure Social History Household Members: Family Household Members Other:: son Housing: House Are you a primary healthcare financial analyst to a significant other at home: No Do you presently have visiting nurse or other home services: No Patient Tobacco Use Status: Never used Tobacco e-Cigarette/Vaping Use: Never Used Second Hand Smoke Exposure: No Use of substances other than those prescribed or required for medical reasons: No Have you been hit, kicked, punched, or otherwise hurt by someone within the past year? If so, by whom?: No Do you feel safe in your current relationship?: No Current Relationship Are you DNR?: No Advance Directives: No (states has HCP & MOLST forms completed) Advance Directives Information Provided: Yes (will bring copies DOS) Advance Directives on File: No Do you have thoughts of harming others: None Do you have a plan to hurt others: No Plan Recently lost weight without trying: No Eating poorly because of decreased appetite: No Nutrition Risks: No Nutritional Risk Patient : No : No Poor oral hygiene: No service: No Current occupational status: retired Cognitive needs: No Hearing needs: No Vision needs: No Meds Allergies Allergy/AdvReac Type Severity Reaction Status Date / Time No Known Drug Allergies Allergy Mild NONE Verified 06/17/23 12:57 [NO KNOWN DRUG ALLERGIES] Active Medications: Current Medications Acetaminophen (Acetaminophen 325 Mg Tablet) 650 mg PO Q6H PRN PRN Reason: Pain, Mild (Pain Scale 1-3) Aspirin (Aspirin 325 Mg Tablet) 325 mg PO BID [facility] Celecoxib (Celecoxib 200 Mg Capsule) 200 mg PO BID [facility] Hydromorphone HCl (Hydromorphone Hcl 0.5 Mg/0.5 Ml Syringe) 0.25 mg IVPUSH Q4H PRN; Protocol PRN Reason: Pain, Severe (Pain Scale 7-10) Last Admin: 06/22/23 11:35 Dose: 0.25 mg Lactated Ringer's (Lr) 1,000 mls @ 100 mls/hr IVCONT .Q10H UNRULY Stop: 06/23/23 09:19 Last Admin: 06/22/23 10:55 Dose: 100 mls/hr Cefazolin Sodium/Dextrose (Ancef) 2 gm in 50 mls @ 100 mls/hr IV POSTOP ONE Stop: 06/22/23 14:29 Influenza Virus Vaccine (Flu Vacc [id number](6mos Up)/Pf 0.5 Ml Syringe) 0.5 ml IM .ONCE ONE Stop: 06/23/23 09:01 Ondansetron HCl (Ondansetron Hcl 4 Mg/2 Ml Vial) 4 mg IVPUSH Q8H PRN PRN Reason: Nausea and Vomiting Oxycodone HCl (Oxycodone Hcl Immed Release 5 Mg Tablet) 5 mg PO Q4H PRN PRN Reason: Pain, Moderate(Pain Scale 4-6) Oxycodone HCl (Oxycodone Hcl Er 10 Mg Tab.Er.12h) 10 mg PO BID [facility] Sodium Chloride (0.9 % Sodium Chloride Flush 3 Ml Syringe) 3 ml IVFLUSH QSHIFT [facility] Home Medications Medication Instructions Recorded Confirmed Last Taken Type acetaminophen 650 mg 650 mg PO BID pain 06/08/23 06/17/23 Unknown History tablet,extended release (Tylenol 8 Hour) Physical Exam 2 Vital Signs and Narrative: Vital Signs: Last Vital Signs Temp 96.9 F 06/22/23 11:18 Pulse 65 06/22/23 11:18 Resp 16 06/22/23 11:18 BP 130/62 06/22/23 11:18 Pulse Ox 100 06/22/23 11:18 O2 Del Method Room Air 06/22/23 11:18 BMI result Body Mass Index 28.2 Constitutional - Awake and Alert, No apparent distress Eyes - PERRLA, EOMI Cardiovascular - S1S2, RRR, No edema, 2+ pedal pulses Respiratory - Normal lung expansion, Normal respiratory effort, No respiratory distress, CTA bilaterally Gastrointestinal - NT / ND; +BS; No rebound or guarding Extremities - no calf tenderness bilaterally, no swelling Musculoskeletal - post-op bandage in place left knee Skin - Warm/Dry Neurological - Alert & oriented x3, sensation in tact Psychological - Appropriate affect Results Labs 06/22/23 06:16 Imaging Radiologist's Impressions: Impressions Knee X-Ray 06/22/23 09:21 IMPRESSION: 1. Status post left knee arthroplasty with intact orthopedic hardware. 2. No acute visible fracture or dislocation. 3. Postsurgical soft tissue air and skin ever noted. Assessment and Plan (1) Patellofemoral arthritis of left knee: Status: Acute Plan 73-year-old female without any significant past medical history admitted to Orthopedic surgery for management of osteoarthritis of the left knee s/p TKA with consult placed to hospitalist service for medical management. # osteoarthritis left knee s/p TKA pod 0 -plan per orthopedic surgery -vital stable postoperatively -ondansetron p.r.n. for postoperative nausea No chronic medical conditions. Vitals stable. Thank you for allowing me to participate in this consult. Signing off at this time. Please do not hesitate to call for further questions or for any acute medical issues. Time Spent With Patient Time: Total time managing care of this patient today ____ minutes.
[2023-06-22] MEDS: ceFAZolin Sodium/Dextrose,Iso 2 GM/50 ML PIGGYBACK IV (13:00)
[2023-06-22] MEDS: ondansetron HCL 4 MG/2 ML VIAL IVPUSH (19:32)
[2023-06-22] MEDS: 0.9 % Sodium Chloride Flush 3 ML SYRINGE IVFLUSH (19:32)
[2023-06-22] MEDS: Acetaminophen 325 MG TABLET 650 MG PO (19:33)
[2023-06-22] MEDS: Celecoxib 200 MG CAPSULE PO (19:34)
[2023-06-22] MEDS: oxyCODONE HCl Immed Release 5 MG TABLET PO ×2 (19:34→23:32)
[2023-06-22] MEDS: oxyCODONE HCl ER 10 MG TAB.ER.12H PO (19:34)
[2023-06-23 03:33] VITALS: BP 110/64; PULSE 93; RESP 16; TEMP 36.6; O2SAT 97
[2023-06-23] MEDS: Acetaminophen 325 MG TABLET 650 MG PO ×2 (05:20→11:46)
[2023-06-23] MEDS: oxyCODONE HCl Immed Release 5 MG TABLET PO ×2 (05:20→11:47)
[2023-06-23] MEDS: Lactated Ringers 1,000 ML 100 ML IVCONT (05:21)
[2023-06-23 06:10] LABS: MANUAL DIFF FLAG NO
[2023-06-23 06:18] LABS: Basophils Percent Auto 0.3 % (0-2); Eosinophils Percent Auto 0.1 % (0-4); Hematocrit 31.7 % (37.0-47.0); Hemoglobin 10.7 g/dl (12.0-16.0); Imm Gran Abs Auto 0.07 X10*3/uL (0.00-0.03); Imm Gran Pct Auto 0.5 % (0.0-0.4); Lymphocytes Absolute Auto 1.9 X10*3/uL (1.2-4.9); Lymphocytes Percent Auto 13.7 % (20-40); Mean Corpuscular HGB Conc 33.8 g/dl (31.0-35.0); Mean Corpuscular Hemoglobin 31.5 pg (27.0-33.0); Mean Corpuscular Volume 93.2 fL (80.0-98.0); Mean Platelet Volume 10.1 fL (9.4-12.3); Monocytes Absolute Auto 1.4 X10*3/uL (0.1-1.2); Monocytes Percent Auto 10.5 % (2-11); Neutrophils Absolute Auto 10.2 x10*3/uL (2.0-8.3); Neutrophils Percent Auto 74.9 % (45-73); Platelet Count 222 X10*3/uL (160-400); Red Cell Distribution Width 11.6 % (11.0-16.0); White Blood Count 13.6 X10*3/uL (4.8-10.8)
[2023-06-23 06:28] LABS: Anion Gap 13 (12-20); Blood Urea Nitrogen 5 mg/dL (9-16); Calcium 8.5 mg/dL (8.4-10.2); Carbon Dioxide 22 mmol/L (22-29); Chloride 103 mmol/L (96-108); Creatinine Clr Calc Pharmacy 80.8; Estimated Glomerular Filt Rate > 60; Glucose Fasting 154 mg/dL (60-99); Potassium 3.4 mmol/L (3.3-5.1); Sodium 135 mmol/L (135-145)
--- NOTE | 2023-06-23 07:47 | P.PNOP_ITS ---
Subjective Subjective Date of Service: 06/23/23 Interval history: POD1 s/p LTKA Patient is resting in bed comfortably No overnight events Pain is managed No additional complaints Patient considers going home later today after working with P.Evrent. Physical Exam Vital Signs: Vital Signs: Last Vital Signs Temp 97.9 F 06/23/23 03:33 Pulse 93 06/23/23 03:33 Resp 16 06/23/23 03:33 BP 110/64 06/23/23 03:33 Pulse Ox 97 06/23/23 03:33 O2 Del Method Room Air 06/23/23 03:33 BMI result Body Mass Index 28.2 Const: General: cooperative, healthy appearing and no acute distress Resp: Effort & Inspection: normal respiratory effort and able to speak in complete sentences Cardio: Rate: regular rate Peripheral pulses: Peripheral pulses 2+ throughout GI: Palpation (GI): Soft to palpation Skin: Lesions: no lesions Rashes: no rashes Extrem: Other: Left knee dressing is c/d/i. Able to dorsi/plantar flex. Calf is supple and nontender. Sensation intact. Pedal pulse intact. Procedures Date of Service Date of Service: 06/23/23 Progress Note: A&P Assessment and plan (1) Status post total knee replacement, left: Status: Acute Plan Continue pain mgmnt Begin ASA dvt ppx begin PT for LTKA Dispo planning-Pending PT eval, pain mgmnt Time Spent With Patient Time: Total time managing care of this patient today ____ minutes. Quality Stroke Does the patient have a stroke diagnosis?: No VTE Prior VTE?: No VTE Risk Level:: Medical - moderate - high VTE Device Contraindication: N/A - Device Ordered VTE Drug Contraindication: N/A - Med Ordered
[2023-06-23 08:00] VITALS: BP 110/59; BP 110/64; PULSE 84; PULSE 93; RESP 16; TEMP 36.7; O2SAT 95; O2SAT 97
[2023-06-23] MEDS: Celecoxib 200 MG CAPSULE PO (08:24)
[2023-06-23] MEDS: Aspirin 325 MG TABLET PO (08:24)
[2023-06-23] MEDS: oxyCODONE HCl ER 10 MG TAB.ER.12H PO (08:25)
[2023-06-23] MEDS: 0.9 % Sodium Chloride Flush 3 ML SYRINGE IVFLUSH (08:25)
--- NOTE | 2023-06-23 11:44 | PM.DS ---
DS: Providers Provider Date of Service: 06/23/23 Primary care physician: Norma Zhang CNP Consults: 06/22/23 10:31 Consult to Hospitalist Routine Comment: Consulting Provider: Hospitalist Reason For Exam: medical management DS: Diagnosis Discharge Diagnosis (1) Status post total knee replacement, left: Status: Acute DS: Summary Hospital Course Hospital Course: The patient underwent a successful left total knee arthroplasty, they were transferred to PACU and then to the floor to recover. During their stay, their vitals were stable, afebrile at 98.0. Labs were unremarkable, H/H 10.7/31.7. POD 1 they were started on Aspirin 325mg po bid for DVT ppx, they also received Physical Therapy services twice a day. Prior to discharge, their dressing was changed, incision clean dry and intact, new Aquacel dressing applied and the plan was to be discharged home with VNA services. Time Spent with Patient Time attestation: Total time managing care of this patient today ____ minutes. Discharge coordination time: Less than 30 minutes Quality: Safe Use of Opioids Does Pt have an Active Cancer Diagnosis on the Problem List?: No Quality: Stroke Does the patient have a stroke diagnosis?: No Physical Exam Vital Signs: Vital Signs: Last Vital Signs Temp 98.0 F 06/23/23 08:00 Pulse 84 06/23/23 08:00 Resp 16 06/23/23 08:00 BP 110/59 L 06/23/23 08:00 Pulse Ox 95 06/23/23 08:00 O2 Del Method Room Air 06/23/23 08:00 BMI result Body Mass Index 28.2 Const: General: cooperative, healthy appearing and no acute distress Resp: Effort & Inspection: normal respiratory effort and able to speak in complete sentences Cardio: Rate: regular rate Peripheral pulses: Peripheral pulses 2+ throughout GI: Palpation (GI): Soft to palpation Skin: Lesions: no lesions Rashes: no rashes Extrem: Other: Left knee dressing is c/d/i. Able to dorsi/plantar flex. Calf is supple and nontender. Sensation intact. Pedal pulse intact. DS: Data Data Completed and Pending Pending studies at discharge: Pending at discharge 06/22/23 08:49 Surgical [PTH] Routine Labs on day of discharge: Laboratory Results - last 24 hr 06/23/23 05:46 WBC 13.6 H RBC 3.40 L D Hgb 10.7 L Hct 31.7 L D MCV 93.2 MCH 31.5 MCHC 33.8 RDW 11.6 Plt Count 222 MPV 10.1 Immature Gran % (Auto) 0.5 H Neut % (Auto) 74.9 H Lymph % (Auto) 13.7 L Emmons % (Auto) 10.5 Eos % (Auto) 0.1 Baso % (Auto) 0.3 Lymph # (Auto) 1.9 Emmons # (Auto) 1.4 H Eos # (Auto) 0.0 Baso # (Auto) 0.0 Abs Immat Gran (auto) 0.07 H Absolute Neuts (auto) 10.2 H Absolute Nucleated RBC 0.000 Nucleated RBC % (auto) 0.0 Sodium 135 Potassium 3.4 Chloride 103 Carbon Dioxide 22 Anion Gap 13 BUN 5 L Creatinine 0.63 Estim Creat Clear Calc 80.8 Estimated GFR > 60 Fasting Glucose 154 H Calcium 8.5 D Discharge Plan Discharge Patient Disposition: Home, Self-Care Referrals: Norris Sanchez PA-C [Physician Juvenile Justice Officer] - 07/08/23 1:00 pm Discharge Medications: New celecoxib 200 mg Capsule 200 mg PO BID 30 Days Qty: 60 0RF acetaminophen 325 mg Tablet 650 mg PO Q6H PRN (Reason: Pain, Mild (Pain Scale 1-3)) 30 Days Qty: 240 0RF aspirin 325 mg Tablet 325 mg PO BID 42 Days Qty: 84 0RF oxycodone 5 mg Tablet 5 mg PO Q4H PRN (Reason: Pain, Moderate(Pain Scale 4-6)) 7 Days Qty: 42 0RF Rx Instructions: Partial Fill upon patient request. Discontinued acetaminophen [Tylenol 8 Hour] 650 mg tablet extended release 650 mg PO BID Discharge Orders: Discharge Order (Routine); Ordered 06/23/23 Ordered By: Wanda Tariq Diet: Advance to usual diet Activity on Discharge: Use cane or walker Activity Restrictions/Additional Instructions: Physical Therapy for total hip arthroplasty: posterior precautions, gait training, ROM, strength Limit stair climbing No showering, no tub bath-keep dressing clean, dry and intact No driving x6 weeks Continue ASA tabs once a day x 4 weeks Follow up with [facility] in 2 weeks
[2023-06-23 11:45] VITALS: BP 119/68; PULSE 90; RESP 16; TEMP 36.9; O2SAT 97
--- NOTE | 2023-06-23 11:45 | P.F2F_ITS ---
Service Date Service Date: 06/23/23 Encounter Date of encounter: 06/23/23 Reasons for Services Signs and symptoms assessed: Pt. is considered homebound due to recent surgery. Unable to drive, poor balance, poor gait mechanics. s/p LTKA Reason for physical therapy: home safety and mobility, therapeutic exercises, restore joint function, gait/transfer training, assess need for DME and ADL training Homebound: Leaving the home is medically contraindicated at this time without the asist of a device and/or another person due th the listed conditions above and below. Reason homebound: unsteady gait / fall risk, leg weakness, pain with ambulation, pain with transfers, poor balance / fall risk and unable to drive Certification: Based on the above findings, I certify that this patient is confined to the home and needs intermittent senior care care, physical therapy and/or speech therapy, or continues to need occupational therapy. The patient is under my care, and I have initiated the establishment of the plan of care. The patient will be followed by a physician who will periodically review the plan of care. Time Spent With Patient Time: Total time managing care of this patient today ____ minutes.
--- NOTE | 2023-06-23 12:12 | MHC.CM.PN ---
IMM06/23/23 Lives with her son. She is independent with all functional mobility and no AD baseline. Patient has a walker and tub bench at home. Plan is to discharge today with VNA. Patient preference obtained and [facility] referred. They have accepted the case. All dc info including a Face 2 Face has been sent to the agency. Patient has arranged for her son to provide transportation home.
--- NOTE | 2023-06-23 13:11 | HO.POSTANES ---
Post Anesthesia Evaluation Post Anesthesia Evaluation Date of Service: 06/23/23 Vital Signs: Vital Signs Temp Pulse Resp BP Pulse Ox O2 Del Method 06/23/23 11:45 98.4 F 90 16 119/68 97 Room Air 06/23/23 08:00 98.0 F 84 16 110/59 L 95 Room Air 06/23/23 08:00 93 110/64 97 06/23/23 03:33 97.9 F 93 16 110/64 97 Room Air Anesthesia: Spinal and Nerve Block Mental Status: Awake Pain Control: Satisfactory Nausea/Vomiting: None Hydration: Adequate Anesthesia-Related Issues: No Anes. Related Issues
[2023-06-23 13:27] VITALS: BP 119/68; PULSE 90; O2SAT 97
--- NOTE | 2023-06-28 09:35 | W.PM.OPN ---
Operative Note Operative Note Date of Service: 06/22/23 Narrative: Date of Service: 06/22/23 Pre-op diagnosis: left knee OA Post-op diagnosis: same Procedure: Left TKA Implants: [place] Tri[employer]on press fit cruciate retaining 10/30/10 Surgeon: Jeremiah Neumann MD Anesthesia: regional and spinal Was an Medical Education Specialist used for this Procedure?: Yes Medical Education Specialist: Norris Sanchez Estimated blood loss (mL): 100 Tourniquet time (min): 43 IV fluids (mL): 1,000 Pathology: other Condition: stable Disposition: PACU Procedure in detail: The patient was brought to the operating room and prepped and draped in standard sterile fashion. A time-out was called to identify proper site proper procedure proper surgeon and IV antibiotics were administered. 1 g of IV tranexamic acid was administered. I began by making a midline incision to the retinaculum and performed a medial parapatellar arthrotomy. The patella was translated laterally and the knee was flexed up. The medial compartment was eburnated. I performed a small medial peel and resected the infrapatellar fat pad. Russel's line was then used to drill my intramedullary femoral guide and my distal femur cut of 10 mm was made in 5 degrees of valgus while protecting the soft tissues. I then measured a # 3 femur and placed my cutting guide and made my anterior posterior and chamfer cuts protecting the soft tissues at all times. Once I was satisfied with my cuts I turned my attention to the tibia. I removed the meniscus medially and laterally and , using an external cutting guide, in line with the tibial crest and the third ray, I made my distal tibial cut in 3 deg slope of while protecting the PCL the posterior soft tissues at all times. An extension block was used to confirm appropriate amount of bony resection. I then sized a #3 tibia and once I was satisfied that there was complete tibial coverage I placed my trial and with the trial femur in place took the knee through range of motion. I was satisfied with the extension and flexion as well as the stability and balance at 0, 30 and 90 degrees. I then turned my attention to the patella where I removed 1 cm from the undersurface of the patella and then trialed a 29apatellar button. Again the knee was taken through range of motion I was satisfied with the tracking. I then returned to the femur and drilled my femoral lug holes and prepared the tibia. A femoral bone plug was placed and the knee was irrigated copiously. I then press fit the patella, tibia and femur in standard fashion. I trialed different inserts until I selected a #11cr insert. The final insert was placed and a 3 minutes iodine soak with local TXA was performed. A Werewolf cautery wand was used to maintain hemostasis over the capsule and meniscal beds, the gutters and peripatellar soft tissues. The knee was then closed with a running Quill suture, a 3 0 Vicryl and ever on the skin. Patient was then placed in sterile dressing and brought to recovery room in stable condition there were no known complications.
== END 2023-06-23 13:45 | disposition home health service (06) ==
LOC: HO.SSS 05:59 → HO.S3 09:49
PROVIDERS: Physician Assistant; PCP Nurse Practitioner Family; Visit Provider Orthopaedic Surgery
PROC: (CPT 27447; principal; 2023-06-22 07:30)
DX: M17.12 Unilateral primary osteoarthritis, left knee (principal); M25.862 Other specified joint disorders, left knee
CPT/HCPCS: 27447; 36415; 73560; 80048; 85014; 85018; 85025; 86850; 86900; 86901; 87640; 87641; 88305; 88311; 93005; 97110; 97116; 97161; C1776; J0131; J0690; J1170; J2371; J2405

== ENCOUNTER → 2023-06-22 05:58 | Outpatient (BNV) | payer MEDICARE, SELFPAY | PROVIDERS: PCP Nurse Practitioner Family; Visit Provider Orthopaedic Surgery | DX: M17.12 Unilateral primary osteoarthritis, left knee (principal) | CPT/HCPCS: 27447; 99024 ==

== ENCOUNTER → 2023-06-22 05:58 | Outpatient (BNV) | payer MEDICARE, SELFPAY | PROVIDERS: PCP Nurse Practitioner Family; Visit Provider Physician Assistant | DX: M17.12 Unilateral primary osteoarthritis, left knee (principal) | CPT/HCPCS: 99222 ==

== ENCOUNTER 2023-07-08 12:45 | Outpatient (AMB) | payer MEDICARE, SELFPAY ==
--- NOTE | 2023-07-08 12:55 | A.OFFVIS_ITS ---
Intake Intake Visit Reasons: Post-Op LT TKA 06/22/23NE Intake Note: Simin a 73 year old male presents today for a post operative left TKA, DOS 06/22/23 NE. Patient reports she is doing well, her pain scale level is 4-6 out of 10. States needing a refill on pain medication. Allergies No Known Drug Allergies [NO KNOWN DRUG ALLERGIES] Allergy (Mild, Verified 07/08/23 13:02) NONE HPI Post-Op LT TKA 06/22/23NE HPI Details 73-year-old female who returns to the [facility] today for post-op left TKA, 06/22/[address] Neumann. She continues to have pain in her left knee and rates the pain as 5 on the scale of 0-10. She also requests a refill for her pain medication. She is doing well otherwise and has no concerns today. [facility] Medical History Post-operative nausea and vomiting Hx of thoracic outlet syndrome Arthritis Surgical History H/O colonoscopy History of knee replacement procedure of right knee History of cervical spinal surgery History of lumbar fusion History of medial meniscus repair of right knee History of open reduction and internal fixation (ORIF) procedure Family History Father Emphysema lung Mother TIA (transient ischemic attack) Alzheimers disease Sister Breast cancer Son Hypertension Down syndrome Daughter In good health Social History Household Members: Family Household Members Other:: son Housing: House Are you a primary care information associate to a significant other at home: No Do you presently have visiting nurse or other home services: No Patient Tobacco Use Status: Never used Tobacco e-Cigarette/Vaping Use: Never Used Second Hand Smoke Exposure: No service: No Current occupational status: retired Cognitive needs: No Hearing needs: No Vision needs: No Review of Systems Const All systems reviewed & are unremarkable except as noted in HPI and below Physical Exam Extrem Other: Left knee: Incision clean, dry and intact. No redness, no joint effusion. ROM 0- 110 degrees. Calf supple, nontender. NVI. Assessment & Plan Assessment & Plan (1) Status post total knee replacement, left: Code(s): Z96.652 - Presence of left artificial knee joint Plan Barby removed, steri strips applied. She will begin to transition to Outpatient PT to continue working on Gait training, ROM and quad strength. No driving for another 4 weeks. She will require ppx abx for dental procedures. She will f/u in 4 weeks, sooner if needed. Orders: Orders PT Evaluation and Treatment 07/07/23 Z96.652 - Presence of left artificial knee joint Medications: Changed From oxycodone Partial Fill upon patient request. 5 mg PO Q4H 7 days PRN 42 tabs 0RF Pain, Moderate(Pain Scale 4-6) To oxycodone Partial Fill upon patient request. 5 mg PO Q6H PRN 28 tabs 0RF Pain, Moderate(Pain Scale 4-6) 7 days Patient Instructions: Scribed for Norris Sanchez PA-C, by Chuck Pepe product manager medical device, on 07/08/2023 at 1:00 PM EST. I, Norris Sanchez PA-C, have personally reviewed and agree with the information entered by the scribe. Coding Level of Care Code Global (98397) Diagnoses Status post total knee replacement, left Z96.652
== END 2023-07-08 13:48 | disposition home or self-care (01) ==
PROVIDERS: PCP Hospitalist; Visit Provider Physician Assistant
DX: Z96.652 Presence of left artificial knee joint (principal)
CPT/HCPCS: 99024

== ENCOUNTER → 2023-07-08 12:45 | Outpatient (BNVA) | payer MEDICARE, SELFPAY | PROVIDERS: PCP Hospitalist; Visit Provider Physician Assistant | DX: Z96.652 Presence of left artificial knee joint (principal) ==

== ENCOUNTER 2023-08-05 12:46 | Outpatient (REF) | payer MEDICARE, SELFPAY ==
--- NOTE | ~2023-08-05 | XR_ITS ---
EXAMINATION: XR SHOULDER, RIGHT CLINICAL INFORMATION: Pain in right shoulder. COMPARISON: None available. TECHNIQUE: 3 views of the right shoulder. FINDINGS: The bones are diffusely demineralized. Moderate degenerative changes in the acromioclavicular joint with joint space narrowing and hypertrophic change. Degenerative changes with hypertrophic change along the glenoid. Degenerative changes with rightward curvature of the imaged upper thoracic spine. XR/XR shoulder RT min 2V IMPRESSION: Moderate degenerative changes in the acromioclavicular and glenohumeral joints.
== END 2023-08-05 12:47 | disposition home or self-care (01) ==
LOC: HO.HOSX 12:46
PROVIDERS: PCP Hospitalist; Visit Provider Physician Assistant
DX: M19.011 Primary osteoarthritis, right shoulder (principal); Z96.652 Presence of left artificial knee joint
CPT/HCPCS: 73030; 99212

== ENCOUNTER 2023-08-05 12:46 | Outpatient (AMB) | payer MEDICARE, SELFPAY ==
--- NOTE | 2023-08-05 12:53 | MHC.OFFVIS ---
Intake Intake Visit Reasons: PO-LT TKA 06/22/23 NE Intake Note: Simin a 73 year old male presents today for a post operative left TKA, DOS 06/22/23 NE. Patient reports she is doing well and pain is currently a 2-3/10. Allergies No Known Drug Allergies [NO KNOWN DRUG ALLERGIES] Allergy (Mild, Verified 08/05/23 12:53) NONE HPI PO-LT TKA 06/22/23 NE HPI Details 73-year-old female who returns to the office today for post-op left TKA, 06/22/[address] Neumann. She continues to have pain in her knee and rates the pain as about 3 on the scale of 0-10. Her pain is aggravated at night. She is taking Tylenol arthritis for her pain. She is doing well otherwise and has no other concerns today. She does c/o mild right shoulder discomfort with reaching. COUNTS INCLUDE 234 BEDS AT THE [facility] Medical History Post-operative nausea and vomiting Hx of thoracic outlet syndrome Arthritis Surgical History H/O colonoscopy History of knee replacement procedure of right knee History of cervical spinal surgery History of lumbar fusion History of medial meniscus repair of right knee History of open reduction and internal fixation (ORIF) procedure Family History Father Emphysema lung Mother TIA (transient ischemic attack) Alzheimers disease Sister Breast cancer Son Hypertension Down syndrome Daughter In good health Social History (Reviewed 08/05/23 @ 12:53 by Homa Mendoza [facility]) Household Members: Family Household Members Other:: son Housing: House Are you a primary managed care coordinator to a significant other at home: No Do you presently have visiting nurse or other home services: No Comment: patient states has removed any rugs Patient Tobacco Use Status: Never used Tobacco e-Cigarette/Vaping Use: Never Used Second Hand Smoke Exposure: No service: No Current occupational status: retired Cognitive needs: No Hearing needs: No Vision needs: No Review of Systems Const All systems reviewed & are unremarkable except as noted in HPI and below Physical Exam Extrem Other: Left knee: Incision well healed. No erythema, mild swelling. ROM is 0-115 degrees. Calf supple, nontender. NVI. Right shoulder pain with abduction and + fair Results Reviewed Results Reviewed: Xrays were obtained in the office today and personally reviewed by me of the right shoulder show ac joint oa Assessment & Plan Assessment & Plan (1) Status post total knee replacement, left: Code(s): Z96.652 - Presence of left artificial knee joint (2) Osteoarthritis of right acromioclavicular joint: Code(s): M19.011 - Primary osteoarthritis, right shoulder Plan She will continue with physical therapy to work on ROM and strengthening. She will increase activity as tolerated and see me back in [address] Neumann and new x-rays, sooner if needed. I did give her a handout of shoulder exercises, if the pain worsens she will contact me to discuss ac joint injection Orders: Orders XR shoulder RT min 2V Today M25.511 - Pain in right shoulder Medications: New amoxicillin take 4 capsules 1 hr prior to dental procedure 2,000 mg (4 x 500 mg) PO ONCE 1 day 4 tabs 3RF acetaminophen 650 mg (2 x 325 mg) PO Q4-6H 30 days PRN 240 tabs 3RF fever or pain amoxicillin take 4 capsules 1 hr prior to dental procedure 2,000 mg (4 x 500 mg) PO ONCE 1 day 4 tabs 3RF acetaminophen 650 mg (2 x 325 mg) PO Q4-6H 30 days PRN 240 tabs 3RF fever or pain Patient Instructions: Scribed for Norris Sanchez PA-C, by Chuck Pepe medical director of hospice, on 08/05/2023 at 1:00 PM EST. I, Norris Sanchez PA-C, have personally reviewed and agree with the information entered by the scribe. Coding Level of Care Code Global (86029) Diagnoses Status post total knee replacement, left Z96.652 Osteoarthritis of right acromioclavicular joint M19.011
== END 2023-08-05 13:38 | disposition home or self-care (01) ==
PROVIDERS: PCP Hospitalist; Visit Provider Physician Assistant
DX: Z96.652 Presence of left artificial knee joint (principal); M19.011 Primary osteoarthritis, right shoulder
CPT/HCPCS: 99024

== ENCOUNTER 2023-09-07 08:00 | Outpatient (RCR) | payer MEDICARE, SELFPAY ==
--- NOTE | 2023-07-08 15:12 | MHC.PT.EP ---
[facility] [place] Office [place] Office [place] Office [address] [phone] F: [phone] F: [phone] F: [phone] F: [phone] Physical Therapy Plan of Care Date of Evaluation: 07/08/23 Date of Surgery: 06/22/23 Diagnosis: S/P Lt TKA Assessment: 73 YO FEMALE REF TO PT S/P LEFT TKA ON 06/22/23. SHE RESIDES W HER SON IN A 1 LEVEL HOME AND IS CURRENTLY AMB W A CANE. OBJECTIVE FINDINGS: PO ROM DEFICITS LEFT KNEE, TIGHT HIP FLEXORS/ CALF MM, (+) STRENGTH DEFICITS, AND MILD LEFT KNEE PAIN. FUNCTIONALLY, Pt IS LIMITED WITH PROLONGED WALKING, BENDING, DECR STANDING AMELIE, ALTERED GAIT MECHANICS-> STAIR MGMT, AND SHE IS RESTRICTED WITH HER MORE PHYSICALLY DEMANDING ADLs. Pt WOULD BENEFIT FROM PT AT THIS TIME TO GUIDE HER IN HER POST-OP COURSE, DEV A PROGR HEP, ADDRESS PAIN MGMT, AND OBTAINING MAXIMAL LEVEL OF FUNCTIONAL INDEPENDENCE. Frequency and Duration: The patient will be seen 2xWKx 8 WKS Short Term Goals: *Pt'S LEFT KNEE PAIN DECR TO 2-310 *INCR FLEXIB IN PSOAS/HIP IR/ CALF MM TO IMPROVE EFFICIENCY OF GAIT ON LEVEL GROUND AND STAIRS *MONITOR INCISIONAL HEALING AND ADDRESS SCAR MOBILITY APPROP LEFT ANT KNEE Correction Goals: *Pt INDEP W PROGRESSIVE HEP AND SELF-SX MGMT TECHN Pt RESUME REG ADLs / GYM WORKOUTS/ FITNESS WALKING , EVIDENT W IMPROVED LEFI SCORE BY 8-10 POINTS (AT EVAL ) Pt INCR Lt LE STRENGTH BY 1 GRADE *Pt DEMON SLS Lt x 15 SEC Treatment Plan: Modalities to reduce pain, spasms and effusion. Manual therapy to restore motion and function. Therapeutic exercise to improve strength and flexibility. Neuromuscular re-education for posture and balance. Therapeutic activities to return to functional activities of daily living. Electronically signed by: VANESSA SHIN,PT Please sign and return to therapist. Thank you for your referral.
--- NOTE | 2023-09-10 07:33 | MHC.PT.DC ---
[facility] [place] Office [place] Office [place] Office [address] [place] Renee [address] [phone] F: [phone] F: [phone] F: [phone] F: [phone] Physical Therapy Discharge Report Diagnosis: S/P Lt TKA Date of Surgery: 06/22/23 Date of Evaluation: 07/08/23 Date of Discharge: 09/10/23 Treatments to Date: 13 Cancellations to Date: 2 No Shows to Date: 0 Discharge Status: Achieved Goals Improved Function Independent with HEP Discharge Summary: [address]EC[address] L[address] HAS PROGRESSED NICELY IN PT POST Lt TKA. SHE DISPLAYS A MORE EFFICIENT GAIT PATTERN ON LEVEL GROUND AND STAIRS. SHE IS INDEP AND COMPLIANT W HER PROGRESSIVE HEP- SHE HAS MET HER STRENGTH AND Lt KNEE ROM GOALS. HER CURRENT Lt KNEE AROM IS 0* TO 126*; SINGLE LIMB STANCE LEFT x 15 SEC, TUG TEST 13 SEC; LEFI SCORE WAS 27/80 AT EVAL AND AT D/C 55/80. SHE IS D/C'D THIS DATE HAVING MET HER PT POST OP GOALS-> SHE HAS PLANNED A TRIP IN THE SPRING. Electronically signed by: VANESSA SHIN,PT Please sign and return to therapist. Thank you for your referral.
== END 2023-09-10 07:33 | disposition home or self-care (01) ==
LOC: HO.PT 08:00
PROVIDERS: PCP Nurse Practitioner Family; Visit Provider Physician Assistant
DX: Z96.652 Presence of left artificial knee joint (principal)
CPT/HCPCS: 97110; 97140; 97162

== ENCOUNTER 2023-09-13 09:49 | Outpatient (AMB) | payer MEDICARE, SELFPAY ==
[2023-09-13 10:02] VITALS: BP 120/74; PULSE 74; O2SAT 97; BMI 24.9
--- NOTE | 2023-09-13 10:02 | MHC.PC.OV ---
Vital Signs 09/13/23 10:02 Height 5 ft 4 in Weight 145 lb BMI 24.9 BP 120/74 Blood Pressure Location Lt brachial Position Sitting Pulse 74 Pulse Source Pulse Oximeter Pulse Oximetry (%) 97 Oxygen Delivery Method Room Air Intake Visit Reasons: EMMANUEL From [facility] Intake Note: Pt is here to [facility] care transfer from [facility] Allergies No Known Drug Allergies [NO KNOWN DRUG ALLERGIES] Allergy (Mild, Verified 09/13/23 10:26) NONE Medication List - Last Reconciled 09/13/23 by Norma Zhang CNP acetaminophen 650 mg (2 x 325 mg) PO Q4-6H PRN 30 days amoxicillin 2,000 mg (4 x 500 mg) PO ONCE 1 day Tobacco use date assessed: 09/13/23 Fall risk assessment: No Falls in past year Last assessed Fall Risk: 09/13/23 Dental Screening Dental Screen Date: 09/13/23 Did you have a dental visit in the last 12 months?: Yes Did you have a dental problem in the last 6 months where you did not have access to dental care?: No Was dental information given to patient?: Patient has dentist HPI HPI Comments History of Present Illness Details 73-year-old female presents for transfer of care She has h/o generalized arthritis Her former PCP is MASOOD who is no longer with the practice She had blood work done in May 2023; WBC was elevated, 13.6, RBC was elevated, 3.40, H&H was low, 10.7/31.7, and FBG was elevated, 154 Her last extended physical exam was in May 2021 She has left total knee angioplasty for patellofemoral arthritis on 06/22/2023. She completed PT. She has a follow up with [facility] ortho next Wednesday She reports chronic right shoulder pain. She had an xray by [facility] ortho which revealed arthritis; was advised to do stretching and take Tylenol and follow up with worsening symptoms for possible cortisone injection Last mammogram 2 years ago: normal Last colonoscopy was with [facility] over 6 years ago: benign polyps Last dexa scan was less than 6 years ago: normal She notes that she no longer performs pap smear test. She will schedule an exam with her senior manager asset protection for an exam. She notes she will request a mammogram and dexa scan from her senior manager asset protection She states that she received for doses of PNA vaccines She notes that has never been vaccinated for shingles and does not want the vaccine She has a MOLST form in record [facility] Medical History Post-operative nausea and vomiting Hx of thoracic outlet syndrome Arthritis Surgical History H/O colonoscopy History of knee replacement procedure of right knee History of cervical spinal surgery History of lumbar fusion History of medial meniscus repair of right knee History of open reduction and internal fixation (ORIF) procedure Family History Father Emphysema lung Mother TIA (transient ischemic attack) Alzheimers disease Sister Breast cancer Son Hypertension Down syndrome Daughter In good health Social History Household Members: Family Household Members Other:: son Housing: House Are you a primary veterinarian laboratory animal care to a significant other at home: No Do you presently have visiting nurse or other home services: No Comment: patient states has removed any rugs Patient Tobacco Use Status: Never used Tobacco e-Cigarette/Vaping Use: Never Used Second Hand Smoke Exposure: No service: No Current occupational status: retired Cognitive needs: No Hearing needs: No Vision needs: No Questionnaire PHQ-9 Over the last 2 weeks, how often have you been bothered by any of the following problems? 1. Little interest or pleasure in doing things: not at all 2. Feeling down, depressed, or hopeless: not at all 3. Trouble falling or staying asleep, or sleeping too much: not at all 4. Feeling tired or having little energy: several days 5. Poor appetite or overeating: not at all 6. Feeling bad about yourself - or that you are a failure or have let yourself or your family down: not at all 7. Trouble concentrating on things, such as reading the newspaper or watching television: not at all 8. Moving or speaking so slowly that other people could have noticed. Or the opposite - being so fidgety or restless that you have been moving around a lot more than usual: several days 9. Thoughts that you would be better off or of hurting yourself in some way: not at all Total score: 2 Depression Screening Interpretation: Negative Depression Screening Done: Yes Source: Developed by Drs. Darius Mccarty, Morgan Molina and colleagues, with an educational daron from [employer]. Thrive Questionnaire Date Thrive assessed: 09/13/23 I am a: Patient What is your living situation today?: I have a steady place to live Within the past 12 months, did the food you bought not last and you didn't have the money to get more?: Never true Within the past 12 months, did you worry whether your food would run out before you got money to buy more?: Never true Do you have trouble paying for medicines?: No Do you have trouble getting transportation to medical appointments?: No Do you have trouble paying your heating and electricity bill?: No Do you have trouble taking care of your child, family member or friend?: No Do you have trouble with day-to-day activities such as bathing, preparing meals, shopping, managing finances, etc.?: No Are you currently unemployed and looking for a job?: No Are you interested in more education?: No AUDIT C Alcohol Use Questionnaire (AUDIT-C) 1. How often do you have a drink containing alcohol?: Monthly or less 2. How many drinks containing alcohol do you have on a typical day when you are drinking?: 1 or 2 3. How often do you have six or more drinks on one occasion?: Never Total Score: 1 VIDYA-7 AMB Questionnaire VIDYA-7 Date VIDYA - 7 assessed: 09/13/23 Feeling nervous, anxious, or on edge: 0 = Not at all Not being able to stop or control worryin = Not at all Worrying too much about different things: 0 = Not at all Trouble relaxin = Not at all Being so restless that it is hard to sit still: 0 = Not at all Becoming easily annoyed or irritable: 0 = Not at all Feeling afraid as if something awful might happen: 0 = Not at all Total VIDYA-7 score (0-4 normal; 5-9 mild; 10-14 moderate; 15-21 severe): 0 Source: Developed by Drs. Darius Mccarty, Morgan Molina and colleagues, with an educational daron from [employer]. Review of Systems Const Details: Denies chills, Denies fatigue, Denies fever(s), Denies headache(s) and Denies weakness HEENT Denies change in vision, Denies dizziness, Denies headache(s), Denies hearing loss, Denies nasal congestion, Denies sinus pain, Denies sinus pressure and Denies sore throat Card Denies chest pain, Denies lightheadedness, Denies dyspnea and Denies other (palpitations) Resp Denies cough, Denies dyspnea and Denies wheezing GI Denies abdominal pain, Denies melena, Denies hematochezia, Denies change in bowel habits, Denies dyspepsia and Denies nausea Denies hematuria and Denies dysuria Musc Reports right shoulder pain, Denies abnormal gait, Denies numbness and Denies tingling Skin/Breast Denies rash, Denies unusual bruising and Denies wounds Neuro Denies abnormal gait, Denies dizziness, Denies headache(s), Denies memory loss, Denies numbness, Denies Sensory deficit (Neuro), Denies tingling and Denies weakness Psych Denies anxiety, Denies depression and Denies memory loss Endo Denies cold intolerance, Denies fatigue, Denies heat intolerance, Denies polydipsia and Denies polyuria José Antonio/Lymph Denies easy bleeding and Denies easy bruising Aller/Immun Denies wheezing Physical exam (Primary Care) Vital Signs: Last Vital Signs Pulse 74 09/13/23 10:02 BP 120/74 09/13/23 10:02 Pulse Ox 97 09/13/23 10:02 Oxygen Delivery Method Room Air 09/13/23 10:02 BMI result Body Mass Index 24.9 Tobacco/Smoking Status: Tobacco use Status Tobacco use date assessed 09/13/23 09/13/23 10:10 Patient Tobacco Use Status Never used Tobacco 09/13/23 10:05 e-Cigarette/Vaping Use Never Used 09/13/23 10:05 PHQ-9: PHQ-9 Score PHQ-9: Total score 2 09/13/23 10:27 Depression Screening Interpretation: Negative Thrive Assessment: Date of Thrive Assessment Date Thrive assessed 09/13/23 09/13/23 10:20 Const Other: General: no acute distress, well developed, alert and awake Nutritional Appearance: well nourished Orientation/consciousness: patient oriented x3 HENMT Head: Yes normocephalic and Yes atraumatic Ears: hearing grossly normal bilaterally and TM's normal bilaterally General nose exam: Normal external nose present and Normal nares present Mouth: Normal oral and palatal mucosa present and moist mucous membranes Teeth and gingiva: dentition normal Throat: Yes oropharynx normal Eyes Pupils: Equal, round and reactive pupils present and Pupil accommodation reflex normal EOM: EOMs intact bilaterally Neck Neck: Yes normal visual inspection, Yes no lymphadenopathy and Yes trachea midline Thyroid: Thyroid normal Carotids: no bruits Lymphatic: no lymphadenopathy noted Chest Chest palpation & inspection: normal inspection of the chest Resp Effort & Inspection: normal respiratory effort Auscultation: clear to auscultation bilaterally Cardio Rate: regular rate Rhythm: regular rhythm Heart sounds: S1 normal heart sound present, S2 normal heart sound present, no gallops, no murmurs and no rubs Bruits: no abdominal aortic bruits and no carotid bruits GI Palpation (GI): No Abdominal aortic bruit present, Soft to palpation, nontender, No hepatosplenomegaly present and No Rebound tenderness present Auscultation: normal bowel sounds General: Yes no CVA tenderness Back/Spine/Pelvis Back: no CVA tenderness Cervical Spine: cervical ROM normal and No Cervical spine tenderness Thoracic/Lumbar Spine: thoraco-lumbar ROM normal, No pain with thoraco-lumbar ROM, No thoracic spinal tenderness and No lumbar spinal tenderness Skin General: warm and dry. Normal skin color. Normal skin turgor Lesions: no lesions Rashes: no rashes Trauma: no lacerations or abrasions Wounds: no wounds Nails: normal Neuro General: patient oriented x3, gait normal and CN's II-XI intact bilaterally Cranial nerves: Yes Equal, round and reactive pupils present Cognition (Neuro): normal cognition Gait exam (Neuro): Normal gait present Motor exam (neuro): 5/5 motor strength present throughout Sensory Exam: No Sensory deficit (Neuro) Deep tendon reflexes (DTR's): Right patellar reflex intensity grade: 2+ and Left patellar reflex intensity grade: 2+ Extrem General: Yes normal to inspection, No edema and No calf tenderness Psych Appearance: grossly normal Affect: normal affect Attitude: cooperative Thought process: Normal thought process present Assessment and Plan Assessment & Plan (1) Encounter for annual general medical examination without abnormal findings in adult: Code(s): Z00.00 - Encounter for general adult medical examination without abnormal findings Plan: No significant physical restrictions or limitations noted Continue current treatment regimen Follow-up in 1 month for right shoulder pain and labs review Return sooner with symptoms or concerns Verbalized understanding and agreed with treatment plan (2) Elevated fasting glucose: Code(s): R73.01 - Impaired fasting glucose Plan: Recent labs review with the patient; FBG was elevated, 154 Will recheck FBG and make changes as needed Advised to get blood work done before her next visit Follow-up in 1 month or return sooner with symptoms or concerns Verbalized understanding and agreed with the plan (3) Screen for colon cancer: Code(s): Z12.11 - Encounter for screening for malignant neoplasm of colon Plan: Her last colonoscopy was 6 over years ago: Benign polyps Referred to [facility] for a colonoscopy (4) Vaccine counseling: Code(s): Z71.85 - Encounter for immunization safety counseling Plan: She notes she is up-to-date on the pneumonia vaccines She has never been vaccinated for shingles and does not want to be vaccinated Instructed on importance of vaccination and encouraged to get vaccinated for shingles (5) Chronic right shoulder pain: Code(s): M25.511 - Pain in right shoulder; G89.29 - Other chronic pain Plan: Chronic right shoulder pain related to arthritis Evaluated by [facility] Tylenol as prescribed Warm/cool compresses and stretching encouraged Referred to physical therapy Follow-up in 1 month or return sooner with worsening or new symptoms Verbalized understanding and agreed with treatment plan (6) Leukocytosis: Code(s): D72.829 - Elevated white blood cell count, unspecified Plan: Recent WBC is elevated, 13.6 Will repeat CBC and make changes as needed (7) Mild anemia: Code(s): D64.9 - Anemia, unspecified Plan: Recent RBC was elevated, 3.40, H&H was low, 10.7/31.7 Will repeat CBC and make changes as needed Orders: Orders Complete Blood Count Auto Diff Today D64.9 - Anemia, unspecified Lipid Panel Today Z00.00 - Encounter for general adult medical examination without abnormal findings UA CC w/rflx Micro + Cult Today Z00.00 - Encounter for general adult medical examination without abnormal findings Glucose Fasting Today R73.01 - Impaired fasting glucose TSH reflex Free T4 Today Z00.00 - Encounter for general adult medical examination without abnormal findings PT Evaluation and Treatment Today G89.29 - Other chronic pain, M25.511 - Pain in right shoulder Referrals Gastroenterology Referral Z12.11 - Encounter for screening for malignant neoplasm of colon Coding Level of Care Code Est Pt Prev Care >65y(30967) Diagnoses Encounter for annual general medical examination without abnormal findings in adult Z00.00 Elevated fasting glucose R73.01 Screen for colon cancer Z12.11 Vaccine counseling Z71.85 Chronic right shoulder pain M25.511; G89.29 Leukocytosis D72.829 Mild anemia D64.9
== END 2023-09-13 11:05 | disposition home or self-care (01) ==
PROVIDERS: PCP Hospitalist; Visit Provider Nurse Practitioner Family
DX: R73.01 Impaired fasting glucose (principal); M25.511 Pain in right shoulder; D64.9 Anemia, unspecified; Z12.11 Encounter for screening for malignant neoplasm of colon; Z71.85 Encounter for immunization safety counseling; D72.829 Elevated white blood cell count, unspecified
CPT/HCPCS: 99213

== ENCOUNTER 2023-09-17 06:06 | Outpatient (REF) | payer MEDICARE, SELFPAY ==
[2023-09-17 06:18] LABS: MANUAL DIFF FLAG NO
[2023-09-17 07:06] LABS: Basophils Absolute Auto 0.1 X10*3/uL (0.0-0.2); Basophils Percent Auto 0.8 % (0-2); Eosinophils Absolute Auto 0.2 X10*3/uL (0.0-0.4); Eosinophils Percent Auto 2.2 % (0-4); Hemoglobin 12.7 g/dl (12.0-16.0); Imm Gran Abs Auto 0.01 X10*3/uL (0.00-0.03); Imm Gran Pct Auto 0.1 % (0.0-0.4); Lymphocytes Absolute Auto 2.2 X10*3/uL (1.2-4.9); Lymphocytes Percent Auto 30.8 % (20-40); Mean Corpuscular HGB Conc 32.6 g/dl (31.0-35.0); Mean Corpuscular Hemoglobin 29.6 pg (27.0-33.0); Mean Corpuscular Volume 90.9 fL (80.0-98.0); Mean Platelet Volume 9.6 fL (9.4-12.3); Monocytes Absolute Auto 0.6 X10*3/uL (0.1-1.2); Monocytes Percent Auto 8.3 % (2-11); Neutrophils Absolute Auto 4.1 x10*3/uL (2.0-8.3); Neutrophils Percent Auto 57.8 % (45-73); Platelet Count 309 X10*3/uL (160-400); Red Blood Count 4.29 X10*6/uL (4.20-5.50); Red Cell Distribution Width 13.6 % (11.0-16.0); White Blood Count 7.1 X10*3/uL (4.8-10.8)
[2023-09-17 07:27] LABS: Cholesterol 213 mg/dL (<200); Glucose Fasting 86 mg/dL (60-99); HDL Cholesterol 63 mg/dL (>40); LDL Cholesterol Calculated 126 mg/dL (<100); Triglycerides 123 mg/dL (<150)
[2023-09-17 07:36] LABS: TSH reflex Free T4 1.83 uIU/mL (0.32-4.0)
[2023-09-17 07:38] LABS: Appearance Urine Clear; Color Urine Yellow; Glucose Urine UA Negative (Negative); Leukocyte Esterase Urine Trace (Negative); Nitrite Urine Negative (Negative); UMIC TRIGGER UACC YES; Urine Blood Negative (Negative); Urine Ketones Negative (Negative); Urine Protein Negative (Neg-Trace)
[2023-09-17 08:07] LABS: Bacteria Urine None Seen (None Seen); Hyaline Casts Urine 0-2 /LPF (0-2); RBC Urine 0-2 /HPF (0-2); WBC Urine 0-5 /HPF (0-5)
== END 2023-09-17 06:07 | disposition home or self-care (01) ==
LOC: HO.LAB 06:06
PROVIDERS: PCP Nurse Practitioner Family; Visit Provider Nurse Practitioner Family
DX: Z00.00 Encounter for general adult medical examination without abnormal findings (principal); R73.01 Impaired fasting glucose; D64.9 Anemia, unspecified
CPT/HCPCS: 36415; 80061; 81001; 82947; 84443; 85025

== ENCOUNTER 2023-09-20 08:12 | Outpatient (REF) | payer MEDICARE, SELFPAY ==
--- NOTE | ~2023-09-20 | XR_ITS ---
EXAMINATION: XR KNEE AP STANDING LEFT KNEE 2 VIEWS CLINICAL INFORMATION: Pain in left knee Pain in right knee COMPARISON: 06/22/2023 left knee, 09/14/2022 bilateral knees TECHNIQUE: AP bilateral standing view of the knees was obtained. Lateral and sunrise view of the left knee FINDINGS: Bilateral right and left total knee arthroplasties are intact. No evidence of hardware complication. Bony alignment and mineralization are normal. No significant varus or valgus configuration is seen bilaterally. Joint spaces are well maintained. No fracture or dislocation. No abnormal soft tissue calcification. XR/XR knee standing BI IMPRESSION: 1. Satisfactory appearance of bilateral total knee arthroplasties. 2. No evidence of hardware complication.
--- NOTE | ~2023-09-20 | XR_ITS ---
EXAMINATION: XR KNEE AP STANDING LEFT KNEE 2 VIEWS CLINICAL INFORMATION: Pain in left knee Pain in right knee COMPARISON: 06/22/2023 left knee, 09/14/2022 bilateral knees TECHNIQUE: AP bilateral standing view of the knees was obtained. Lateral and sunrise view of the left knee FINDINGS: Bilateral right and left total knee arthroplasties are intact. No evidence of hardware complication. Bony alignment and mineralization are normal. No significant varus or valgus configuration is seen bilaterally. Joint spaces are well maintained. No fracture or dislocation. No abnormal soft tissue calcification. XR/XR knee LT 2V IMPRESSION: 1. Satisfactory appearance of bilateral total knee arthroplasties. 2. No evidence of hardware complication.
== END 2023-09-20 08:13 | disposition home or self-care (01) ==
LOC: HO.HOSX 08:12
PROVIDERS: Visit Provider Physician Assistant
DX: M19.011 Primary osteoarthritis, right shoulder (principal); M25.562 Pain in left knee; M25.561 Pain in right knee; Z47.1 Aftercare following joint replacement surgery; Z96.652 Presence of left artificial knee joint
CPT/HCPCS: 20610; 73560; 73565; 99212; J1040

== ENCOUNTER 2023-09-20 08:19 | Outpatient (AMB) | payer MEDICARE, SELFPAY ==
--- NOTE | 2023-09-20 08:34 | A.OFFVIS_ITS ---
Intake Intake Visit Reasons: PO-LT TKA 06/22/23 NE-book with NE with xrays Intake Note: Simin a 73 year old female presents today for a post operative left TKA, DOS 06/22/23 NE. Patient reports she is doing well, occasional discomfort with prolong sitting. Her main complaint today is of her right shoulder pain that makes it difficult to sleep at night. Finds no relief with Tylenol. States being seen by her PCP who referred her to PT. Allergies No Known Drug Allergies [NO KNOWN DRUG ALLERGIES] Allergy (Mild, Verified 09/20/23 08:40) NONE HPI PO-LT TKA 06/22/23 NE-book with NE with xrays HPI Details 73-year-old female who returns to [facility] for post-op left TKA, 06/22/[address] Neumann. She continues to have occasional discomfort in her knee with prolonged sitting but is doing well overall. She reports she has pain in her right shoulder which makes her difficult to sleep at night. She was seen by her PCP who referred her to physical therapy. She finds no relief with Tylenol. She is also experiencing worsening right shoulder pain. She has been working on exercises with minimal relief. Has difficulty sleeping. [facility] Medical History Post-operative nausea and vomiting Hx of thoracic outlet syndrome Arthritis Surgical History H/O colonoscopy History of knee replacement procedure of right knee History of cervical spinal surgery History of lumbar fusion History of medial meniscus repair of right knee History of open reduction and internal fixation (ORIF) procedure Family History Father Emphysema lung Mother TIA (transient ischemic attack) Alzheimers disease Sister Breast cancer Son Hypertension Down syndrome Daughter In good health Social History Household Members: Family Household Members Other:: son Housing: House Are you a primary home care aide to a significant other at home: No Do you presently have visiting nurse or other home services: No Comment: patient states has removed any rugs Patient Tobacco Use Status: Never used Tobacco e-Cigarette/Vaping Use: Never Used Second Hand Smoke Exposure: No service: No Current occupational status: retired Cognitive needs: No Hearing needs: No Vision needs: No Review of Systems Const All systems reviewed & are unremarkable except as noted in HPI and below Physical Exam Extrem Other: Left knee: Incision well healed. No erythema, mild swelling. ROM is 0-115 degrees. Calf supple, nontender. NVI. Right shoulder pain with abduction and + fair Office Procedures Joint Injection/Drain Joint Injection/Drain Primary Site: right shoulder Prep: site was prepped using aseptic technique, ethochloride spray was applied and injection warnings given Injected: 80 mg of, DepoMedrol, with 8 mL of, 1% plain lidocaine and in the subcromial space Approach Used: posterolateral Procedure: The patient tolerated the procedure well and there was some relief with the local anesthesia Coding 75552 - Glenohumeral/Tronchanteric Bursa/Intraarticular Procedure code (CPT) selection complete Results Reviewed Results Reviewed: Xrays were obtained in the office today and personally reviewed by me of the left knee show intact prosthesis with no signs of loosening Assessment & Plan Assessment & Plan (1) Status post total knee replacement, left: Code(s): Z96.652 - Presence of left artificial knee joint (2) Osteoarthritis of right acromioclavicular joint: Code(s): M19.011 - Primary osteoarthritis, right shoulder Plan For her left knee, she will continue to work on her home exercises and increase activity as tolerated. I would like to see her back in 9 months for annual TKA follow-up, sooner if needed. We discussed options today which include steroid injection. They did consent to move forward with the right shoulder injection, which was tolerated well. I recommended rest, ice and elevation and OTC anti-inflammatories PRN for discomfort. If symptoms persist or worsens over the next 6-8 weeks, patient will contact the office, otherwise follow-up as needed. Orders: Orders XR knee LT 2V Today M25.562 - Pain in left knee XR knee standing BI Today M25.561 - Pain in right knee, M25.562 - Pain in left knee Patient Instructions: Scribed for Norris Sanchez PA-C, by Chuck Pepe director of medical staff services, on 09/20/2023 at 8:30 AM EST. INorris PA-C, have personally reviewed and agree with the information entered by the scribe. Coding Level of Care Code Global (53806) Diagnoses Status post total knee replacement, left Z96.652 Osteoarthritis of right acromioclavicular joint M19.011 CPT Codes Coding - Joint 7: 34380 - Glenohumeral/Tronchanteric Bursa/Intraarticular ([id number])
== END 2023-09-20 09:12 | disposition home or self-care (01) ==
PROVIDERS: PCP Hospitalist; Visit Provider Physician Assistant
DX: M19.011 Primary osteoarthritis, right shoulder (principal); Z96.652 Presence of left artificial knee joint
CPT/HCPCS: 20610; 99024

== ENCOUNTER 2023-11-01 10:00 | Outpatient (RCR) | payer MEDICARE, SELFPAY ==
--- NOTE | 2023-10-05 13:24 | MHC.PT.EP ---
[facility] [place] Office [place] Office [place] Office [address] Austen Renee [address] [phone] F: [phone] F: [phone] F: [phone] F: [phone] Physical Therapy Plan of Care Date of Evaluation: 10/05/23 Date of Surgery: Diagnosis: CHRONIC Rt SHOULDER PAIN-> Rt AC Jt OA Assessment: 73 YO FEMALE REF TO PT W 2 YR H/O PROGRESSIVE Rt SH PAIN- RECENT XRAY REVEALED AC Jt ARTHRITIS- SHE IS Rt HAND DOMINANT. THE Pt HAS DECR ROM Rt SH, STRENGTH DEFICITS, DECR POSTURE, (-) SENSORIMOTOR DEFICITS, AND IS LIMITED W REG ADL USE Rt UE (REACHING, IR POSTERIORLY, LIFTING) WELL SLEEP INTERRUPTIONS. SHE HAS (+) IMPINGEMENT SIGN, TIGHTNESS IN HER PECTS, AND TTP Rt UT/ DELT/ POST RC. SHE WOULD BENEFIT FROM PT TO ADDRESS THE ABOVE, ENHANCE POSTURAL AWARENESS, INCREASE FLEXIBILITY IN ANT CHAIN AND POSTERIOR / SCAP-RC WEAKNESS. Frequency and Duration: The patient will be seen 2 x WK x 4 WKS Short Term Goals: *DECR Rt SH PAIN TO 2-3/10 *Pt INDEP W SELF-POSTURAL CORRECTION *INCREASE CERV AND Rt SH AROM REDUCE TISSUE TIGHTNESS *INITIATE HEP Group Home Goals: *Pt REPORT SLEEPING WELL, W/O PAIN IMPACT *INDEP HEP AND SELF-SX MGMT TECHN *IMPROVE ADL PERFORMANCE W Rt UE EVIDENCED BY IMPROVED SPADI , AT EVAL 71/130 *Rt SH/ SCAP/ UPPER BACK STRENGTH IMP BY 1 GRADE Treatment Plan: Modalities to reduce pain, spasms and effusion. Manual therapy to restore motion and function. Therapeutic exercise to improve strength and flexibility. Neuromuscular re-education for posture and balance. Therapeutic activities to return to functional activities of daily living. Electronically signed by: VANESSA SHIN,PT Please sign and return to therapist. Thank you for your referral.
--- NOTE | 2023-11-01 10:47 | MHC.PT.DC ---
[facility] [place] Office [place] Office [place] Office [address] [place] Renee [address] [phone] F: [phone] F: [phone] F: [phone] F: [phone] Physical Therapy Discharge Report Diagnosis: CHRONIC Rt SHOULDER PAIN-> Rt AC Jt OA Date of Surgery: Date of Evaluation: 10/05/23 Date of Discharge: 11/01/23 Treatments to Date: 5 Cancellations to Date: 0 No Shows to Date: 0 Discharge Status: Achieved Goals Improved Function Independent with HEP Discharge Summary: THE Pt HAS MET HER PT GOALS AT THIS TIME AND IS READY FOR D/C W HEP- SHE DISPLAYS WNL AROM Rt SH AND IMPROVED STRENGTH IN Rt SHOUDER COMPLEX. SHE HAS BEEN ABLE TO RESUME REG ADLs W/O EXACERBATING SXS. HER SPADI SCORE WAS 71/130 AT EVAL, AND, TODAY AT D/C IS 4/130. Electronically signed by: VANESSA SHIN,PT Please sign and return to therapist. Thank you for your referral.
== END 2023-11-01 10:50 | disposition home or self-care (01) ==
LOC: HO.PT 10:00
PROVIDERS: PCP Nurse Practitioner Family; Visit Provider Nurse Practitioner Family
DX: M25.511 Pain in right shoulder (principal); G89.29 Other chronic pain
CPT/HCPCS: 97110; 97140; 97162

== ENCOUNTER 2023-11-23 08:46 | Outpatient (AMB) | payer MEDICARE, SELFPAY ==
[2023-11-23 08:48] VITALS: BP 122/74; PULSE 79; RESP 13; TEMP 36.1; O2SAT 99; BMI 25.0
--- NOTE | 2023-11-23 08:48 | A.OFFPC_ITS ---
Vital Signs 11/23/23 08:48 Height 5 ft 4 in Weight 145 lb 6 oz BMI 25.0 BP 122/74 Blood Pressure Location Rt brachial Position Sitting Respiration 13 Pulse 79 Pulse Source Pulse Oximeter Temp 97 F Temp Source Temporal Artery Scan Pulse Oximetry (%) 99 Oxygen Delivery Method Room Air Intake Visit Reasons: Follow up labs Director Credit Risk Required: No Accompanied by: Self / Same As Patient Allergies No Known Drug Allergies [NO KNOWN DRUG ALLERGIES] Allergy (Mild, Verified 11/23/23 09:24) NONE Medication List - Last Reconciled 11/23/23 by Norma Zhang CNP acetaminophen ER (Tylenol Arthritis Pain) 650 mg PO Q8H Tobacco use date assessed: 09/13/23 Fall risk assessment: No Falls in past year Last assessed Fall Risk: 11/23/23 Dental Screening Dental Screen Date: 11/23/23 Did you have a dental visit in the last 12 months?: Yes Did you have a dental problem in the last 6 months where you did not have access to dental care?: No Was dental information given to patient?: Patient has dentist HPI HPI Comments History of Present Illness Details 73-year-old female presents for right sh oulder pain and review of recent lab work follow-up She admits to taking her medications as prescribed without adverse reactions She offers no complaints and denies acute symptoms at this time She recently had a mammogram. She has an appointment with GI regarding colonoscopy She notes that she is up-to-date on the current flu vaccine [facility] Medical History Patellofemoral arthritis of left knee Post-operative nausea and vomiting Hx of thoracic outlet syndrome Arthritis Surgical History H/O total knee replacement H/O colonoscopy History of knee replacement procedure of right knee History of cervical spinal surgery History of lumbar fusion History of medial meniscus repair of right knee History of open reduction and internal fixation (ORIF) procedure Family History Father Emphysema lung Mother TIA (transient ischemic attack) Alzheimers disease Sister Breast cancer Son Hypertension Down syndrome Mental health disorder Daughter In good health Social History Household Members: Family Household Members Other:: son Housing: House Are you a primary child care attendant to a significant other at home: No Do you presently have visiting nurse or other home services: No Comment: patient states has removed any rugs Patient Tobacco Use Status: Never used Tobacco e-Cigarette/Vaping Use: Never Used Second Hand Smoke Exposure: No service: No Current occupational status: retired Cognitive needs: No Hearing needs: No Vision needs: No Questionnaire Thrive Questionnaire Date Thrive assessed: 09/13/23 VIDYA-7 AMB Questionnaire VIDYA-7 Date VIDYA - 7 assessed: 09/13/23 Source: Developed by Drs. Darius Mccarty, Sara Ramires, Morgan Shipley and colleagues, with an educational daron from [employer]. Review of Systems Const Details: Const Denies chills, Denies fatigue, Denies fever(s), Denies headache(s) and Denies weakness ENT Denies dizziness and Denies headache(s) Card Denies chest pain, Denies lightheadedness, Denies dyspnea and Denies other (Palpitations) Resp Denies cough, Denies dyspnea, Denies wheezing and Denies other ( shortness of breath) GI Denies abdominal pain, Denies melena, Denies hematochezia, Denies change in bowel habits, Denies dyspepsia and Denies nausea Denies hematuria and Denies dysuria Musc Denies abnormal gait, Denies myalgias, Denies arthralgias, Denies numbness and Denies tingling Skin/Breast Denies rash, Denies unusual bruising and Denies wounds Neuro Denies abnormal gait, Denies dizziness, Denies headache(s), Denies memory loss, Denies numbness, Denies Sensory deficit (Neuro), Denies tingling and Denies weakness Psych Denies anxiety, Denies depression, Denies memory loss Endo Denies cold intolerance, Denies fatigue, Denies heat intolerance, Denies polydipsia and Denies polyuria Aller/Immun Denies wheezing Physical exam (Primary Care) Vital Signs: Last Vital Signs Temp 97 F 11/23/23 08:48 Pulse 79 11/23/23 08:48 Resp 13 11/23/23 08:48 BP 122/74 11/23/23 08:48 Pulse Ox 99 11/23/23 08:48 Oxygen Delivery Method Room Air 11/23/23 08:48 BMI result Body Mass Index 25.0 Tobacco/Smoking Status: Tobacco use Status Tobacco use date assessed 09/13/23 11/23/23 08:56 Patient Tobacco Use Status Never used Tobacco 11/23/23 08:56 e-Cigarette/Vaping Use Never Used 11/23/23 08:56 Thrive Assessment: Date of Thrive Assessment Date Thrive assessed 09/13/23 11/23/23 08:56 Const Other: General: no acute distress and well developed Nutritional Appearance: well nourished Orientation/consciousness: patient oriented x3 HENFL Head: Yes normocephalic and Yes atraumatic Eyes General: appearance normal, both eyes and all related structures Pupils: Equal, round and reactive pupils present EOM: EOMs intact bilaterally Resp Effort & Inspection: normal respiratory effort Auscultation: clear to auscultation bilaterally Cardio Rate: regular rate Rhythm: regular rhythm Heart sounds: S1 normal heart sound present, S2 normal heart sound present, no gallops, no murmurs and no rubs GI Palpation (GI): No Abdominal aortic bruit present, Soft to palpation, nontender, No hepatosplenomegaly present and No Rebound tenderness present Auscultation: normal bowel sounds General: Yes no CVA tenderness Back/Spine/Pelvis Back: no CVA tenderness Cervical Spine: cervical ROM normal and No Cervical spine tenderness Thoracic/Lumbar Spine: thoraco-lumbar ROM normal, No pain with thoraco-lumbar ROM, No thoracic spinal tenderness and No lumbar spinal tenderness Extrem General: Yes normal to inspection, No edema and No calf tenderness Skin General: warm and dry. Normal skin color. Normal skin turgor Neuro General: patient oriented x3, gait normal and no focal neuro deficit Cranial nerves: Yes Equal, round and reactive pupils present Cognition (Neuro): normal cognition Gait exam (Neuro): Normal gait present Sensory Exam: No Sensory deficit (Neuro) Psych Appearance: grossly normal Affect: normal affect Attitude: cooperative Thought process: Normal thought process present Assessment and Plan Assessment & Plan (1) Mild anemia: Code(s): D64.9 - Anemia, unspecified Plan: Recent labs reviewed with the patient; unremarkable findings Mild anemia has resolved (2) Leukocytosis: Code(s): D72.829 - Elevated white blood cell count, unspecified Plan: Resolved (3) Elevated fasting glucose: Code(s): R73.01 - Impaired fasting glucose Plan: Resolved (4) Hypercholesterolemia: Code(s): E78.00 - Pure hypercholesterolemia, unspecified Plan: Total cholesterol is improving; current level is 213 Advised to limit foods high in saturated fat and avoid foods high in trans fat Routine exercise encouraged Follow-up in a year from her last physical for an extended physical exam or return sooner with symptoms or concerns Verbalized understanding and agreed with the plan Coding Level of Care Code Est Pt Level 3 (27159) Diagnoses Mild anemia D64.9 Leukocytosis D72.829 Elevated fasting glucose R73.01 Hypercholesterolemia E78.00
== END 2023-11-23 09:51 | disposition home or self-care (01) ==
PROVIDERS: PCP Nurse Practitioner Family; Visit Provider Nurse Practitioner Family
DX: D64.9 Anemia, unspecified (principal); D72.829 Elevated white blood cell count, unspecified; R73.01 Impaired fasting glucose; E78.00 Pure hypercholesterolemia, unspecified
CPT/HCPCS: 99213

== ENCOUNTER → 2023-11-24 07:43 | Outpatient (BNVA) | payer MEDICARE, SELFPAY | PROVIDERS: PCP Nurse Practitioner Family; Visit Provider Nurse Practitioner Family ==

== ENCOUNTER 2023-12-03 10:15 | Outpatient (AMB) | payer MEDICARE, SELFPAY ==
--- NOTE | 2023-12-03 10:15 | AM.OFFWIN_ITS ---
Intake Vital Signs 12/03/23 10:17 Height 5 ft 4 in Weight 145 lb BMI 24.9 BP 130/80 Blood Pressure Location Lt brachial Position Sitting Pulse 86 Pulse Source Pulse Oximeter Temp 97.4 F Temp Source Temporal Artery Scan Pulse Oximetry (%) 98 Oxygen Delivery Method Room Air Intake Visit Reasons: EP Rash Intake Note: pt is here today for rash on rt buttocks started wednesday Patient Tobacco Use Status: Never used Tobacco Allergies No Known Drug Allergies [NO KNOWN DRUG ALLERGIES] Allergy (Mild, Verified 12/03/23 10:57) NONE Medication List - Last Reconciled 12/03/23 by Chuck Adams MD acetaminophen ER (Tylenol Arthritis Pain) 650 mg PO Q8H bisacodyl (Dulcolax (bisacodyl)) 20 mg (4 x 5 mg) PO ONCE 1 day polyethylene glycol 3350 (Miralax) 238 grams PO ONCE valacyclovir 500 mg PO BID Do you need a note to return to daycare/school/sports/work: No HPI EP Rash HPI Details 73-year-old female [facility]. She has a rash in the buttocks. Symptoms started yesterday. Along with the rash, she feels symptoms of itching and pain. [facility] Medical History Patellofemoral arthritis of left knee Post-operative nausea and vomiting Hx of thoracic outlet syndrome Arthritis Surgical History H/O total knee replacement H/O colonoscopy History of knee replacement procedure of right knee History of cervical spinal surgery History of lumbar fusion History of medial meniscus repair of right knee History of open reduction and internal fixation (ORIF) procedure Family History Father Emphysema lung Mother TIA (transient ischemic attack) Alzheimers disease Sister Breast cancer Son Hypertension Down syndrome Mental health disorder Daughter In good health Social History Household Members: Family Household Members Other:: son Housing: House Are you a primary home child care provider to a significant other at home: No Do you presently have visiting nurse or other home services: No Comment: patient states has removed any rugs Patient Tobacco Use Status: Never used Tobacco e-Cigarette/Vaping Use: Never Used Second Hand Smoke Exposure: No service: No Current occupational status: retired Cognitive needs: No Hearing needs: No Vision needs: No Physical Exam Vital Signs: Last Vital Signs Temp 97.4 F 12/03/23 10:17 Pulse 86 12/03/23 10:17 BP 130/80 12/03/23 10:17 Pulse Ox 98 12/03/23 10:17 Oxygen Delivery Method Room Air 12/03/23 10:17 BMI result Body Mass Index 24.9 Skin Other: Patient was examined with a female medical radiation therapist in the room. Gluteal area: Along the S4 dermatome on the right side, vesicular lesions extending up to the perianal area. These lesions are discrete and along the dermatome. Assessment & Plan Assessment & Plan (1) Herpes zoster: Code(s): B02.9 - Zoster without complications Plan: Valacyclovir and Neurontin called in. If symptoms do not improve to follow-up here. Medications: New valacyclovir 500 mg PO BID 14 tabs 0RF Coding Level of Care Code Est Pt Level 4 (47982) Diagnoses Herpes zoster B02.9
[2023-12-03 10:17] VITALS: BP 130/80; PULSE 86; TEMP 36.3; O2SAT 98; BMI 24.9
== END 2023-12-03 11:27 | disposition home or self-care (01) ==
PROVIDERS: PCP Nurse Practitioner Family; Visit Provider Internal Medicine
DX: B02.9 Zoster without complications (principal)
CPT/HCPCS: 99214

== ENCOUNTER 2024-04-11 06:18 | Day surgery (SDC) | payer MEDICARE, SELFPAY ==
[2024-04-07 14:01] VITALS: BMI 26.4
--- NOTE | 2024-04-10 12:41 | P.CONAN_ITS ---
Documented by User: Katie Flores NP 04/10/24 12:41 HPI - Anesthesia Eval Consult details Narrative: 74yo F for Colonoscopy PONV PMFSH Active Problems Active Problems: All Active Problems Hypercholesterolemia (Acute) Mild anemia (Acute) Leukocytosis (Acute) Encounter for annual general medical examination without abnormal findings in adult (Acute) Chronic right shoulder pain (Acute) Vaccine counseling (Acute) Elevated fasting glucose (Acute) Osteoarthritis of right acromioclavicular joint (Acute) Status post total knee replacement, left (Acute) Right arm pain (Acute) Preop examination (Acute) Subchondral sclerosis of knee (Acute) Sprain of left knee (Acute) Advanced care planning/counseling discussion (Acute) Screen for colon cancer (Acute) Ear foreign body (Acute) Right shoulder strain (Acute) Annual visit for general adult medical examination with abnormal findings (Acute) Generalized arthritis (Acute) Past Medical History Medical History Patellofemoral arthritis of left knee Post-operative nausea and vomiting Hx of thoracic outlet syndrome Arthritis Family History Family History Father Emphysema lung Mother TIA (transient ischemic attack) Alzheimers disease Sister Breast cancer Son Hypertension Down syndrome Mental health disorder Daughter In good health Family history of problems with anesthesia: No Surgical History Surgical History H/O total knee replacement H/O colonoscopy History of knee replacement procedure of right knee History of cervical spinal surgery History of lumbar fusion History of medial meniscus repair of right knee History of open reduction and internal fixation (ORIF) procedure History of Problems with Anesthesia: Yes (PONV) Social History Social History Household Members: Family Household Members Other:: son Housing: House Are you a primary urgent care physician assistant to a significant other at home: No Do you presently have visiting nurse or other home services: No Comment: patient states has removed any rugs Patient Tobacco Use Status: Never used Tobacco e-Cigarette/Vaping Use: Never Used Second Hand Smoke Exposure: No Are you DNR?: No Advance Directives: No Advance Directives Information Provided: Yes Recently lost weight without trying: No Nutrition Risks: No Nutritional Risk service: No Current occupational status: retired Cognitive needs: No Hearing needs: No Vision needs: No Meds Allergies Allergy/AdvReac Type Severity Reaction Status Date / Time No Known Drug Allergies Allergy Mild NONE Verified 12/03/23 10:57 [NO KNOWN DRUG ALLERGIES] Home Medications ?Medication ?Instructions ?Recorded ?Confirmed ?Last Taken ?Type acetaminophen 650 mg 650 mg PO TID PRN Pain (Scale 04/11/24 04/11/24 04/09/24 History tablet,extended release Score 4-6) Exam Height,Weight and Vital Signs: Height 5 ft 4 in Weight 69.853 kg Assessment and Plan Assessment Anesthesia Assessment: Chart Reviewed Final Anesthetic Review Family History of Problems with Anesthesia: No History of Problems with Anesthesia: Yes (PONV) Documented by User: Shashank Callahan MD 04/11/24 09:06 [facility] Past Medical History Medical History Patellofemoral arthritis of left knee Post-operative nausea and vomiting Hx of thoracic outlet syndrome Arthritis Family History Family History Father Emphysema lung Mother TIA (transient ischemic attack) Alzheimers disease Sister Breast cancer Son Hypertension Down syndrome Mental health disorder Daughter In good health Surgical History Surgical History H/O total knee replacement H/O colonoscopy History of knee replacement procedure of right knee History of cervical spinal surgery History of lumbar fusion History of medial meniscus repair of right knee History of open reduction and internal fixation (ORIF) procedure Social History Social History Household Members: Family Household Members Other:: son Housing: House Are you a primary urgent care physician assistant to a significant other at home: No Do you presently have visiting nurse or other home services: No Comment: patient states has removed any rugs Patient Tobacco Use Status: Never used Tobacco e-Cigarette/Vaping Use: Never Used Second Hand Smoke Exposure: No Are you DNR?: No Advance Directives: No Advance Directives Information Provided: Yes Recently lost weight without trying: No Nutrition Risks: No Nutritional Risk service: No Current occupational status: retired Cognitive needs: No Hearing needs: No Vision needs: No Meds Allergies Allergy/AdvReac Type Severity Reaction Status Date / Time No Known Drug Allergies Allergy Mild NONE Verified 12/03/23 10:57 [NO KNOWN DRUG ALLERGIES] Home Medications ?Medication ?Instructions ?Recorded ?Confirmed ?Last Taken ?Type acetaminophen 650 mg 650 mg PO TID PRN Pain (Scale 04/11/24 04/11/24 04/09/24 History tablet,extended release Score 4-6) Exam Airway Mallampati Class: II TM Dist: >3cm Neck ROM: Full Denture: Upper and Lower Heart: ok Lungs: ok Assessment and Plan Assessment Anesthesia Assessment: Anesthesia Plan Discussed Final Anesthetic Review NPO: Yes ASA Class: II Final Preanesthetic Review: No Changes in Pt Med Stat, Meds/Allgs Chart Reviewed, Consent Obtained/Reviewed and Anes Risks/Benef Reviewed Patient Risk: Intermediate Procedure Risk: Low Anesthetic Plan Anesthetic Plan: MAC: and Agree w/ Assess. and Plan Disposition: Standard PACU
[2024-04-11 06:29] VITALS: BP 125/77; PULSE 77; RESP 20; TEMP 36.1; O2SAT 98; BMI 24.8
[2024-04-11] MEDS: Lactated Ringers 1,000 ML 100 ML IVCONT (06:54)
--- NOTE | 2024-04-11 08:41 | MHC.SHP ---
Pre-Procedural Eval Section A - 24 Hr Update-Section A only Date of Service: 04/11/24 Section B - Complete if H&P > 30 days Chief Complaint: screening Details of Present Illness: Patellofemoral arthritis of left knee Post-operative nausea and vomiting Hx of thoracic outlet syndrome Arthritis Surgical History H/O total knee replacement H/O colonoscopy History of knee replacement procedure of right knee History of cervical spinal surgery History of lumbar fusion History of medial meniscus repair of right knee History of open reduction and internal fixation (ORIF) procedure Allergies: Allergies Allergy/AdvReac Type Severity Reaction Status Date / Time No Known Drug Allergies Allergy Mild NONE Verified 12/03/23 10:57 [NO KNOWN DRUG ALLERGIES] Review of Systems Review of Systems Comment: 10 point ROS negative Exam Exam Comment: Gen appear: No acute distress HEENT: no icterus Chest: No overt resp distress Abd: soft, nontender, nondistended Psych: Stable affect, answering questions appropriately Neuro: A/Ox3 noted to move all extremities spontaneously Ext: no peripheral edema Plan Diagnosis/Plan: Unchanged I have reviewed the history and physical and performed a pertinent physical examination on my patient. No changes have occurred unless specified. Time Spent With Patient Time: Total time managing care of this patient today ____ minutes.
--- NOTE | 2024-04-11 08:59 | P.OPN-COLO_ITS ---
Colonoscopy Operative Note Operative Note Date of Service: 04/11/24 Narrative: Procedure: Colonoscopy Indication: Screening Endoscopist: Carmen Martinez MD Anesthesia Provider: Shashank Callahan MD Anesthesia type: MAC Instrument: Olympus [id number]-H190L Consent: Indication, risks vs benefits, and alternatives were discussed with the patient who gave written informed consent to proceed. EKG, pulse, pulse oximetry and blood pressure were monitored throughout the procedure. Please see anesthesia flowsheet. Procedure: The patient was brought to the procedure room and placed in the left lateral decubitus position. IV medications were administered by the anesthesia provider in attendance. A digital rectal exam was performed which was normal. A distal attachment cap was affixed to the tip of the colonoscope which was then inserted through the anus and advanced through the colon to the cecum at 75 cm ,and terminal ileum. Appendiceal orifice and ileocecal valve were identified. Mucosa was carefully examined under high definition white light as the instrument was slowly withdrawn in a retrograde panoramic fashion. Retroflexion was performed in ascending colon and rectum. The procedure was not difficult. There were no immediate obvious complications. The quality of the prep was BBPS: 3+3+2 = adequate Withdrawal time 8 minutes. Limitations: No limitations. Findings: Mucosa: Normal to cecum and terminal ileum. Protruding lesions: * 4 sessile polyp of size 2-10 mm in ascending colon. Cold snare polypectomy was performed. The polyps were completely removed and retrieved. * Medium internal hemorrhoids without stigmata of recent bleeding. Impression: 1. Normal colon and terminal ileum mucosa 2. Total of 4 polyps removed 3. Internal hemorrhoids Recommendations: - Follow path results. - Repeat colonoscopy in 3-5 years depending on results.
[2024-04-11 09:26] VITALS: BP 101/66; PULSE 76; RESP 16; TEMP 36.2; O2SAT 98
[2024-04-11 09:41] VITALS: BP 108/59; PULSE 71; RESP 16; TEMP 36.2; O2SAT 100
== END 2024-04-11 10:23 | disposition home or self-care (01) ==
PROVIDERS: PCP Nurse Practitioner Family; Visit Provider Internal Medicine Gastroenterology
PROC: 0DJD8ZZ Inspection of Lower Intestinal Tract, Via Natural or Artificial Opening Endoscopic (ICD-10-PCS; CPT 45378; principal; 2024-04-11 07:30)
DX: Z12.11 Encounter for screening for malignant neoplasm of colon (principal); D12.2 Benign neoplasm of ascending colon; D12.5 Benign neoplasm of sigmoid colon; K64.8 Other hemorrhoids; E78.00 Pure hypercholesterolemia, unspecified; M19.90 Unspecified osteoarthritis, unspecified site; M17.12 Unilateral primary osteoarthritis, left knee; Z96.653 Presence of artificial knee joint, bilateral; Z98.890 Other specified postprocedural states; Z79.899 Other long term (current) drug therapy
CPT/HCPCS: 45385; 88305; J2704

== ENCOUNTER → 2024-04-11 06:18 | Outpatient (BNV) | payer MEDICARE, SELFPAY | PROVIDERS: PCP Nurse Practitioner Family; Visit Provider Internal Medicine | DX: Z12.11 Encounter for screening for malignant neoplasm of colon (principal); D12.2 Benign neoplasm of ascending colon; D12.5 Benign neoplasm of sigmoid colon; K64.8 Other hemorrhoids | CPT/HCPCS: 45385 ==

== ENCOUNTER 2024-05-17 09:21 | Outpatient (AMB) | payer MEDICARE, SELFPAY ==
[2024-05-17 09:29] VITALS: BP 142/74; PULSE 74; O2SAT 99; BMI 25.4
--- NOTE | 2024-05-17 09:29 | MHC.OFFVIS ---
Vital Signs 05/17/24 09:29 Height 5 ft 4 in Weight 148 lb 2.41 oz BMI 25.4 BP 142/74 H Blood Pressure Location Lt brachial Position Sitting Pulse 74 Pulse Source Pulse Oximeter Pulse Oximetry (%) 99 Oxygen Delivery Method Room Air Intake Visit Reasons: s/p colon Intake Note: Simin Stern presents in office today for a s/p FUV. CC: Pt denies any complications or new concerns post op. Pt is here to discuss procedure findings. [employer] Service Attendant Required: No Allergies No Known Drug Allergies [NO KNOWN DRUG ALLERGIES] Allergy (Mild, Verified 05/17/24 09:29) NONE HPI HPI s/p colon: Details: LAST VISIT: Screen for colon cancer Plan Patient denies any GI, cardiac or respiratory symptoms.? Denies any issues with anesthesia in the past.? Denies any history of sleep apnea.? No history infectious diseases in the past or present.? Not on any anticoagulation therapy.? No family or personal history of colon cancer.? Patient denies melena, hematochezia, unintentional weight loss or ribbon like stools.? Discussed at length the pre-procedure,? prep, diet & medications as well as what to expect prior, during and after the procedure.?? Stressed the importance of good bowel prep. ?Recommended the use of Vaseline or Calmoseptine OTC & baby wipes with bowel movements to promote comfort.? ?Patient verbalizes understanding and agrees to plan of care.? She was given the opportunity to ask questions and all questions answered.? We will see her after the procedure.? Medications New bisacodyl (Dulcolax (bisacodyl)) take 4 tabs at noon the day before your colonoscopy 20 mg (4 x 5 mg) PO ONCE 1 day 4 tabs 0RF Z12.11 polyethylene glycol 3350 (Miralax) As directed by gastroenterology department at [facility] 238 grams PO ONCE 238 grams 0RF Z12.11 COLONOSCOPY: Findings: Mucosa: Normal to cecum and terminal ileum. Protruding lesions: 4 sessile polyp of size 2-10 mm in ascending colon. Cold snare polypectomy was performed. The polyps were completely removed and retrieved. Medium internal hemorrhoids without stigmata of recent bleeding. Impression: 1. Normal colon and terminal ileum mucosa 2. Total of 4 polyps removed 3. Internal hemorrhoids Recommendations: - Follow path results. - Repeat colonoscopy in 3-5 years depending on results. PATHOLOGY RESULTS Diagnosis A. Colon, ascending, polyps: Tubular adenomas, multiple pieces; negative for high-grade dysplasia and carcinoma. B. Colon, sigmoid, polyp: Tubular adenoma, completely excised; negative for high-grade dysplasia and carcinoma TODAY'S VISIT: Patient is here today for follow-up and to discuss colonoscopy results. Patient denies any ill effects from the prep, anesthesia or procedure itself. Patient had 4 polyps tubular adenoma found without high-grade dysplasia or carcinoma. Patient denies melena, hematochezia, unintentional weight loss or ribbon like stools. Patient denies any dyspepsia, dysphagia or odynophagia. Patient states that she is moving her bowels without any issues. Denies any GI concerning symptoms. [facility] Medical History (Updated 05/17/24 @ 19:31 by Elmira Haider, [facility]) Tubular adenoma of colon Patellofemoral arthritis of left knee Post-operative nausea and vomiting Hx of thoracic outlet syndrome Arthritis Surgical History H/O total knee replacement H/O colonoscopy History of knee replacement procedure of right knee History of cervical spinal surgery History of lumbar fusion History of medial meniscus repair of right knee History of open reduction and internal fixation (ORIF) procedure Family History Father Emphysema lung Mother TIA (transient ischemic attack) Alzheimers disease Sister Breast cancer Son Hypertension Down syndrome Mental health disorder Daughter In good health Social History Household Members: Family Household Members Other:: son Housing: House Are you a primary career and technology education teacher to a significant other at home: No Do you presently have visiting nurse or other home services: No Comment: patient states has removed any rugs Patient Tobacco Use Status: Never used Tobacco e-Cigarette/Vaping Use: Never Used Second Hand Smoke Exposure: No service: No Current occupational status: retired Cognitive needs: No Hearing needs: No Vision needs: No Review of Systems Const Denies weight gain and Denies weight loss ENT Reports no additional complaints, Denies dysphagia and Denies odynophagia Card Reports no additional complaints Resp Reports no additional complaints GI Denies abdominal pain, Denies belching, Denies melena, Denies bloating, Denies change in bowel habits, Denies dysphagia, Denies excessive flatus, Denies dyspepsia, Denies heartburn, Denies diarrhea, Denies loose stools, Denies nausea, Denies odynophagia and Denies vomiting Musc Reports no additional complaints Neuro Reports no additional complaints Psych Reports no additional complaints Endo Reports no additional complaints Physical Exam Vital Signs: Last Vital Signs Pulse 74 05/17/24 09:29 BP 142/74 H 05/17/24 09:29 Pulse Ox 99 05/17/24 09:29 Oxygen Delivery Method Room Air 05/17/24 09:29 BMI result Body Mass Index 25.4 Const General: healthy appearing, no acute distress and well developed Nutritional Appearance: well nourished Orientation/consciousness: patient oriented x3 Resp Effort & Inspection: normal respiratory effort, able to speak in complete sentences, no tracheal deviation and symmetric chest movement Auscultation: clear to auscultation bilaterally Cardio Rate: regular rate GI Inspection: Yes normal to inspection and No distended Palpation (GI): Soft to palpation, not firm, nontender and No hepatosplenomegaly present Auscultation: normal bowel sounds General: Yes no CVA tenderness Back/Spine/Pelvis Back: no CVA tenderness Skin General skin exam: elasticity normal, turgor normal and dry skin Neuro General: patient oriented x3 Psych Appearance: grossly normal Mental Status: mental status grossly normal Assessment & Plan Assessment & Plan (1) Tubular adenoma of colon: Code(s): D12.6 - Benign neoplasm of colon, unspecified Category: Medical (2) Status post colonoscopy: Code(s): Z98.890 - Other specified postprocedural states Plan Tubular adenoma found on colonoscopy. No high-grade dysplasia or carcinoma. Repeat colonoscopy in 3 years, sooner if clinically necessary. Patient will follow-up in our office on as needed basis. Patient does not have any GI concerning at this time will call us if she will have any GI concerning symptoms. She is agreeable to this plan and verbalizes understanding of instructions. She was given the opportunity to ask questions and all questions answered. Thank you for allowing me to participate in her care Coding Level of Care Code Est Pt Level 3 (89902) Diagnoses Tubular adenoma of colon D12.6 Status post colonoscopy Z98.890 Time Spent (min) 25 Comment 15 minutes spent with patient and additional 10 minutes spent reviewing her records
== END 2024-05-17 10:13 | disposition home or self-care (01) ==
PROVIDERS: PCP Nurse Practitioner Family; Visit Provider Nurse Practitioner Family
DX: D12.6 Benign neoplasm of colon, unspecified (principal); Z98.890 Other specified postprocedural states
CPT/HCPCS: 99213

== ENCOUNTER → 2024-05-17 09:21 | Outpatient (BNVA) | payer MEDICARE, SELFPAY | PROVIDERS: PCP Nurse Practitioner Family; Visit Provider Nurse Practitioner Family | DX: D12.6 Benign neoplasm of colon, unspecified (principal); Z98.890 Other specified postprocedural states | CPT/HCPCS: 99212 ==

== ENCOUNTER 2024-06-19 08:29 | Outpatient (AMB) | payer MEDICARE, SELFPAY ==
--- NOTE | 2024-06-19 08:35 | A.OFFVIS_ITS ---
Vital Signs 06/19/24 08:49 Height 5 ft 4 in Weight 148 lb BMI 25.4 Intake Visit Reasons: ov- S/P LT TKA 06/22/23 NE Intake Note: Simin Stern is a 74 year old female who presents to the office today for a S/P LT TKA 06/22/23 NE. Patient reports she is doing well, she has no concerns today. Her only discomfort comes with getting up from a prolong sitting position. She will need an a prescription for antibiotics sent to her pharmacy for an upcoming dental appointment. Allergies No Known Drug Allergies [NO KNOWN DRUG ALLERGIES] Allergy (Mild, Verified 06/19/24 08:48) NONE Medication List - Last Reconciled 06/19/24 by Norris Sanchez PA-C acetaminophen ER 650 mg PO TID PRN amoxicillin 2,000 mg (4 x 500 mg) PO ONCE 1 day HPI HPI ov- S/P LT TKA 06/22/23 NE: Details: 74-year-old female who returns to the office today for a follow-up of left TKA, 06/22/[address] Neumann. She states she has discomfort with getting up from prolonged sitting however she is doing well otherwise. She is requesting a refill for her antibiotics. She has no other concerns today. [facility] Medical History (Updated 05/17/24 @ 19:31 by Elmira Haider [facility]) Tubular adenoma of colon Patellofemoral arthritis of left knee Post-operative nausea and vomiting Hx of thoracic outlet syndrome Arthritis Surgical History (Reviewed 06/19/24 @ 08:48 by Ana Villalpando [facility]) H/O total knee replacement H/O colonoscopy History of knee replacement procedure of right knee History of cervical spinal surgery History of lumbar fusion History of medial meniscus repair of right knee History of open reduction and internal fixation (ORIF) procedure Family History Father Emphysema lung Mother TIA (transient ischemic attack) Alzheimers disease Sister Breast cancer Son Hypertension Down syndrome Mental health disorder Daughter In good health Social History Household Members: Family Household Members Other:: son Housing: House Are you a primary urgent care nurse practitioner to a significant other at home: No Do you presently have visiting nurse or other home services: No Comment: patient states has removed any rugs Patient Tobacco Use Status: Never used Tobacco e-Cigarette/Vaping Use: Never Used Second Hand Smoke Exposure: No service: No Current occupational status: retired Cognitive needs: No Hearing needs: No Vision needs: No Review of Systems Const All systems reviewed & are unremarkable except as noted in HPI and below Physical Exam Vital Signs: BMI result Body Mass Index 25.4 Extrem Other: Left knee: Surgical scar well healed. No erythema. ROM is 0-115 degrees. Calf supple, nontender. NVI. Results Reviewed Results Reviewed: Xrays were obtained in the office today and personally reviewed by me of the left knee show intact prosthesis with no signs of loosening Assessment & Plan Assessment & Plan (1) Status post total knee replacement, left: Code(s): Z96.652 - Presence of left artificial knee joint Category: Surgical (2) Osteoarthritis of right acromioclavicular joint: Code(s): M19.011 - Primary osteoarthritis, right shoulder Category: Medical Plan She will continue with daily exercises and increase activities as tolerated. I did send her a prescription for dental prophylaxis. She will see me back in 1 years for her annual follow-up, sooner if needed. Orders: Orders XR knee RT 1V Today M25.561 - Pain in right knee XR knee LT 3V Today M25.562 - Pain in left knee Medications: New amoxicillin take 4 capsules 1 hr prior to dental procedure 2,000 mg (4 x 500 mg) PO ONCE 4 tabs 3RF 1 day Patient Instructions: Scribed for Norris Sanchez PA-C, by Chuck Pepe medical instrument cable fabricator, on 06/19/2024 at 8:45 AM EST.? I, Norris Sanchez PA-C, have personally reviewed and agree with the information entered by the scribe. Coding Level of Care Code Est Pt Level 3 (10845) Complex EM visit Add On G2211 Diagnoses Status post total knee replacement, left Z96.652 Osteoarthritis of right acromioclavicular joint M19.011
[2024-06-19 08:49] VITALS: BMI 25.4
== END 2024-06-19 09:19 | disposition home or self-care (01) ==
PROVIDERS: PCP Nurse Practitioner Family; Visit Provider Physician Assistant
DX: Z47.89 Encounter for other orthopedic aftercare (principal); Z96.652 Presence of left artificial knee joint; M19.011 Primary osteoarthritis, right shoulder
CPT/HCPCS: 99214; G2211

== ENCOUNTER 2024-06-19 12:19 | Outpatient (REF) | payer MEDICARE, SELFPAY | END 2024-06-19 12:20 | disposition home or self-care (01) | LOC: HO.HOSX 12:19 | PROVIDERS: Visit Provider Physician Assistant | DX: Z47.1 Aftercare following joint replacement surgery (principal); M19.011 Primary osteoarthritis, right shoulder; Z96.652 Presence of left artificial knee joint | CPT/HCPCS: 73560; 73562; 99212 ==

== ENCOUNTER 2024-10-04 07:49 | Outpatient (AMB) | payer MEDICARE, SELFPAY ==
--- NOTE | 2024-10-04 08:02 | A.OFFPC_ITS ---
Vital Signs 10/04/24 08:10 Height 5 ft 4 in Weight 146 lb 8 oz BMI 25.1 BP 116/56 L Blood Pressure Location Rt brachial Position Sitting Respiration 16 Pulse 65 Pulse Source Pulse Oximeter Temp 97.8 F Temp Source Oral Pulse Oximetry (%) 99 Oxygen Delivery Method Room Air Intake Visit Reasons: CPE on/after 09/13/24 Intake Note: patient here for CPE Data Security Analyst Required: No Is last menstrual period known: No Post menopausal: No Patient : No Allergies No Known Drug Allergies [NO KNOWN DRUG ALLERGIES] Allergy (Mild, Verified 10/04/24 08:15) NONE Medication List - Last Reconciled 10/04/24 by Norma Zhang CNP acetaminophen ER 650 mg PO TID PRN Tobacco use date assessed: 10/04/24 Fall risk assessment: No Falls in past year Last assessed Fall Risk: 10/04/24 Dental Screening Dental Screen Date: 10/04/24 Did you have a dental visit in the last 12 months?: Yes Did you have a dental problem in the last 6 months where you did not have access to dental care?: No Was dental information given to patient?: Patient has dentist HPI HPI Comments History of Present Illness Details 74-year-old female presents for an exten ded physical exam. Acute issue(s) None. Past Medical History - Generalized arthritis - Chronic right shoulder pain - Hypercholesterolemia - Scoliosis Surgical History - Left total knee angioplasty for patell ofemoral arthritis on 06/22/2023 Social History - Nonsmoker. Does not vape. Drinks 2 bee rs weekly. Denies recreational drug use - Has been making healthy dietary choice s. Exercises routinely stationary bike and walking). Generally sleep well Health maintenance - [facility]; diagnosed with left cataract. Has has follow up appointment with [facility] on 10/10/2024 - Last dental visit was 6 months ago; emilie s another appontment on 10/10/2024 - She no long performs pap smear test - Last mammogram test was a year ago at [facility]; she has an appointment for a mammogram on 10/11/2024 - Last colonoscopy in 03/2024: tubular ad enoma; repeat colonoscopy in 3 years - Last dexa scan was over 2 years ago. S he has an appointment for a Bone scan with [facility] on 10/11/2024 - She has a Molst form in record - Last tetanus vaccine was in 03/2019 - She is up-to-date on the flu vaccine - She is up-to-date on the PNA vaccines - She has never been vaccinated for banuelos gles and declines the vaccine [facility] Medical History (Updated 10/05/24 @ 08:13 by Norma Zhang CNP) Tubular adenoma of colon Patellofemoral arthritis of left knee Post-operative nausea and vomiting Hx of thoracic outlet syndrome Arthritis Surgical History H/O total knee replacement H/O colonoscopy History of knee replacement procedure of right knee History of cervical spinal surgery History of lumbar fusion History of medial meniscus repair of right knee History of open reduction and internal fixation (ORIF) procedure Family History (Reviewed 05/17/24 @ 09:29 by Jorge Magallon [facility] [place]) Father Emphysema lung Mother TIA (transient ischemic attack) Alzheimers disease Sister Breast cancer Son Hypertension Down syndrome Mental health disorder Daughter In good health Social History (Reviewed 05/17/24 @ 09:29 by Jorge Magallon [facility] [place]) Household Members: Family Household Members Other:: son Housing: House Are you a primary anesthesiologist and critical care to a significant other at home: No Do you presently have visiting nurse or other home services: No Comment: patient states has removed any rugs Patient Tobacco Use Status: Never used Tobacco e-Cigarette/Vaping Use: Never Used Second Hand Smoke Exposure: No service: No Current occupational status: retired Cognitive needs: No Hearing needs: No Vision needs: No Questionnaire PHQ-9 Over the last 2 weeks, how often have you been bothered by any of the following problems? 1. Little interest or pleasure in doing things: not at all 2. Feeling down, depressed, or hopeless: not at all 3. Trouble falling or staying asleep, or sleeping too much: not at all 4. Feeling tired or having little energy: not at all 5. Poor appetite or overeating: not at all 6. Feeling bad about yourself - or that you are a failure or have let yourself or your family down: not at all 7. Trouble concentrating on things, such as reading the newspaper or watching television: not at all 8. Moving or speaking so slowly that other people could have noticed. Or the opposite - being so fidgety or restless that you have been moving around a lot more than usual: not at all 9. Thoughts that you would be better off or of hurting yourself in some way: not at all Total score: 0 Depression Screening Interpretation: Negative Depression Screening Done: Yes 16200 - PHQ-9 Billing: Yes Source: Developed by Drs. Darius Mccarty, Sara Ramires, Morgan Shipley and colleagues, with an educational daron from [employer]. Thrive Questionnaire Date Thrive assessed: 10/04/24 I am a: Patient What is your living situation today?: I have a steady place to live Within the past 12 months, did the food you bought not last and you didn't have the money to get more?: Never true Within the past 12 months, did you worry whether your food would run out before you got money to buy more?: Never true Do you have trouble paying for medicines?: No Do you have trouble getting transportation to medical appointments?: No Do you have trouble paying your heating and electricity bill?: No Do you have trouble taking care of your child, family member or friend?: No Do you have trouble with day-to-day activities such as bathing, preparing meals, shopping, managing finances, etc.?: No Are you currently unemployed and looking for a job?: No Are you interested in more education?: No THRIVE Score: 0 AUDIT C Alcohol Use Questionnaire (AUDIT-C) 1. How often do you have a drink containing alcohol?: 2-4 times a month 2. How many drinks containing alcohol do you have on a typical day when you are drinking?: 1 or 2 3. How often do you have six or more drinks on one occasion?: Never Total Score: 2 Score Reviewed/Action Taken: Yes VIDYA-7 AMB Questionnaire VIDYA-7 Date VIDYA - 7 assessed: 10/04/24 Feeling nervous, anxious, or on edge: 0 = Not at all Not being able to stop or control worryin = Not at all Worrying too much about different things: 0 = Not at all Trouble relaxin = Not at all Being so restless that it is hard to sit still: 0 = Not at all Becoming easily annoyed or irritable: 0 = Not at all Feeling afraid as if something awful might happen: 0 = Not at all Total VIDYA-7 score (0-4 normal; 5-9 mild; 10-14 moderate; 15-21 severe): 0 Source: Developed by Drs. Darius Mccarty, Sara Ramires, Morgan Shipley and colleagues, with an educational daron from [employer]. VIDYA-7 Assessment Billing VIDYA-7 Assessment Tool: VIDYA-7 Assessment 10998 Review of Systems Const Details: Denies chills, Denies fatigue, Denies fever(s), Denies headache(s) and Denies weakness HEENT Denies change in vision, Denies dizziness, Denies headache(s), Denies hearing loss, Denies nasal congestion, Denies sinus pain, Denies sinus pressure and Denies sore throat Card Denies chest pain, Denies lightheadedness, Denies dyspnea and Denies other (palpitations) Resp Denies cough, Denies dyspnea and Denies wheezing GI Denies abdominal pain, Denies melena, Denies hematochezia, Denies change in bowel habits, Denies dyspepsia and Denies nausea Denies hematuria and Denies dysuria Musc Denies abnormal gait, Denies myalgias, Denies arthralgias, Denies numbness and Denies tingling Skin/Breast Denies rash, Denies unusual bruising and Denies wounds Neuro Denies abnormal gait, Denies dizziness, Denies headache(s), Denies memory loss, Denies numbness, Denies Sensory deficit (Neuro), Denies tingling and Denies weakness Psych Denies anxiety, Denies depression and Denies memory loss Endo Denies cold intolerance, Denies fatigue, Denies heat intolerance, Denies polydipsia and Denies polyuria José Antonio/Lymph Denies easy bleeding and Denies easy bruising Aller/Immun Denies wheezing Physical exam (Primary Care) Vital Signs: Last Vital Signs Temp 97.8 F 10/04/24 08:10 Pulse 65 10/04/24 08:10 Resp 16 10/04/24 08:10 BP 116/56 L 10/04/24 08:10 Pulse Ox 99 10/04/24 08:10 Oxygen Delivery Method Room Air 10/04/24 08:10 BMI result Body Mass Index 25.1 Tobacco/Smoking Status: Tobacco use Status Tobacco use date assessed 10/04/24 10/04/24 08:10 Patient Tobacco Use Status Never used Tobacco 10/04/24 08:05 e-Cigarette/Vaping Use Never Used 10/04/24 08:05 PHQ-9: PHQ-9 Score PHQ-9: Total score 0 10/05/24 08:17 Depression Screening Interpretation: Negative Thrive Assessment: Date of Thrive Assessment Date Thrive assessed 10/04/24 10/04/24 08:05 Const Other: General: no acute distress, well developed, alert and awake Nutritional Appearance: well nourished Orientation/consciousness: patient oriented x3 HENMT Head: Yes normocephalic and Yes atraumatic Ears: hearing grossly normal bilaterally and TM's normal bilaterally General nose exam: Normal external nose present and Normal nares present Mouth: Normal oral and palatal mucosa present and moist mucous membranes Teeth and gingiva: dentition normal. Full top denture Throat: Yes oropharynx normal Eyes Pupils: Equal, round and reactive pupils present and Pupil accommodation reflex normal EOM: EOMs intact bilaterally Neck Neck: Yes normal visual inspection, Yes no lymphadenopathy and Yes trachea midline Thyroid: Thyroid normal Carotids: no bruits Lymphatic: no lymphadenopathy noted Chest Chest palpation & inspection: normal inspection of the chest Resp Effort & Inspection: normal respiratory effort Auscultation: clear to auscultation bilaterally Cardio Rate: regular rate Rhythm: regular rhythm Heart sounds: S1 normal heart sound present, S2 normal heart sound present, no gallops, no murmurs and no rubs Bruits: no abdominal aortic bruits and no carotid bruits GI Palpation (GI): No Abdominal aortic bruit present, Soft to palpation, nontender, No hepatosplenomegaly present and No Rebound tenderness present Auscultation: normal bowel sounds General: Yes no CVA tenderness Back/Spine/Pelvis Back: no CVA tenderness Cervical Spine: cervical ROM normal and No Cervical spine tenderness Thoracic/Lumbar Spine: thoraco-lumbar ROM normal, No pain with thoraco-lumbar ROM, No thoracic spinal tenderness and No lumbar spinal tenderness Skin General: warm and dry. Normal skin color. Normal skin turgor Lesions: no lesions Rashes: no rashes Trauma: no lacerations or abrasions Wounds: no wounds Nails: normal Neuro General: patient oriented x3, gait normal and CN's II-XI intact bilaterally Cranial nerves: Yes Equal, round and reactive pupils present Cognition (Neuro): normal cognition Gait exam (Neuro): Normal gait present Motor exam (neuro): 5/5 motor strength present throughout Sensory Exam: No Sensory deficit (Neuro) Deep tendon reflexes (DTR's): Right patellar reflex intensity grade: 2+ and Left patellar reflex intensity grade: 2+ Extrem General: Yes normal to inspection, No edema and No calf tenderness Psych Appearance: grossly normal Affect: normal affect Attitude: cooperative Thought process: Normal thought process present Coding Level of Care Code Est Pt Prev Care >65y(70088) Diagnoses Normal physical examination, routine Z00.00 Hypercholesterolemia E78.00 Laboratory tests ordered as part of a complete physical exam (CPE) Z00.00 Additional Codes VIDYA-7 Assessment Billing - VIDYA-7 Assessment Tool: VIDYA-7 Assessment 85279 ([id number]) PHQ-9 - 27623 - PHQ-9 Billing: Yes ([id number]) Assessment & Plan Assessment & Plan (1) Normal physical examination, routine: Code(s): Z00.00 - Encounter for general adult medical examination without abnormal findings Category: Medical Plan: No significant functional limitations noted. Healthy diet and routine exercise encouraged. Encouraged to perform lab work and follow-up for a telehealth visit for labs review. Advised to schedule her next physical for on or after 10/04/2025. Return sooner with symptoms or concerns. Verbalized understanding and agreed with the plan. (2) Hypercholesterolemia: Code(s): E78.00 - Pure hypercholesterolemia, unspecified Category: Medical Plan: Lipid panel ordered. Advised to limit foods high in saturated fat and avoid foods high in trans fat. Routine exercise encouraged. Encouraged to fast for 10-12 hours, may drink water, and get blood work done. Will review results and make changes as needed. Verbalized understanding and agreed with the plan. (3) Laboratory tests ordered as part of a complete physical exam (CPE): Code(s): Z00.00 - Encounter for general adult medical examination without abnormal findings Category: Medical Plan: Fasting labs ordered as part of a complete physical exam. Advised to fast for at least 10 hours before getting labs drawn. May drink water Verbalized understanding and agreed with treatment plan. Orders: Orders Microalbumin, Random (w Creat) Today Z00.00 - Encounter for general adult medical examination without abnormal findings Lipid Panel Today E78.00 - Pure hypercholesterolemia, unspecified
[2024-10-04 08:10] VITALS: BP 116/56; PULSE 65; RESP 16; TEMP 36.6; O2SAT 99; BMI 25.1
== END 2024-10-04 08:37 | disposition home or self-care (01) ==
PROVIDERS: PCP Nurse Practitioner Family; Visit Provider Nurse Practitioner Family
DX: E78.00 Pure hypercholesterolemia, unspecified (principal)

== ENCOUNTER → 2024-10-04 07:49 | Outpatient (BNVA) | payer MEDICARE, SELFPAY | PROVIDERS: PCP Nurse Practitioner Family; Visit Provider Nurse Practitioner Family | DX: Z00.00 Encounter for general adult medical examination without abnormal findings (principal); E78.00 Pure hypercholesterolemia, unspecified | CPT/HCPCS: 96127; 99212 ==

== ENCOUNTER 2024-10-05 06:00 | Outpatient (REF) | payer MEDICARE, SELFPAY ==
[2024-10-05 07:43] LABS: Creatinine Urine 124.03 mg/dL; Microalbum/Creatinine Ratio Ur 4.8 ug/mg cr (<30)
[2024-10-05 07:51] LABS: Cholesterol 210 mg/dL (<200); HDL Cholesterol 63 mg/dL (>40); LDL Cholesterol Calculated 120 mg/dL (<100); Triglycerides 138 mg/dL (<150)
== END 2024-10-05 06:01 | disposition home or self-care (01) ==
LOC: HO.LAB 06:00
PROVIDERS: PCP Nurse Practitioner Family; Visit Provider Nurse Practitioner Family
DX: Z00.00 Encounter for general adult medical examination without abnormal findings (principal); E78.00 Pure hypercholesterolemia, unspecified
CPT/HCPCS: 36415; 80061; 82043; 82570

== ENCOUNTER 2024-10-06 06:15 | Outpatient (REF) | payer MEDICARE, SELFPAY ==
--- OUTSIDE RECORDS SUMMARY | 2024-10-06 06:18 | XMS_ITS ---
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 Name Role Phone HUGO ASTORGA Primary Care Provider Unavail Gosia De La Rosa Unavailable [phone] REASON FOR VISIT INTERVAL BREAST & PELVIC EXAM Encounters Encounter Location Date Provider Diagnosis [facility] [employer] [address] [facility] [address] [place] [address] 06/25/2023 Gosia Lock Plan Of Treatment Next Appt Details Provider Name:Gosia alvarez, 07/10/2025 08:00:00 AM, [address] [place] [address], [address], [place], [address], Progress Notes * ANIA [birth year]EDOB:[birth year] (74 yo F)Acc No.[id number]:06/25/2023 PROGRESS NOTES Patient:?TESFAYE TINEO Appointment Provider:?Gosia alvarez M.D. :1950???Age:73 Y???Sex:Female D ate:06/25/2023 Address:[address] [place] [address] Pcp:ZEYAD CONTRERAS Subjective: * Chief Complaints: * ???1. INTERVAL BREAST & PELV IC EXAM. * Medical History:? Objective: * Vitals:? Assessment: Plan: * Treatment: * Images: Billing Information: * Visit Code:? * Procedure Codes:? * Electronic signature of Aye Lock MD on 10/06/2024 at 06:18 AM EST Sign off status: Pending * Appointment Provider:?Gosia Lock M.D. Date:?06/25/2023 Generated for Juan santiago/Leonie/Hermannitting on:?10/06/2024 06:18 AM EST
--- OUTSIDE RECORDS SUMMARY | 2024-10-06 06:18 | XMS_ITS ---
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 Physical, Annual ASSEMBLER PING PONG TABLE Physical 60-85+ Medications Medication SIG (Take, Route, Frequency, Duration) Notes Start Date End Date Status Estradiol Vaginal Cream 0.01% 1 Gram ALONG VULVA Twice a week for 90 days 04/16/2021 Not-Taking Motrin 800 mg 1 tablet ORAL as needed Amadou-MJ 07/07/2014 Not-Taking EC-Naprosyn 500MG 1 tablet ORAL as needed Amadou-MJ 06/17/20 13 Not-Taking Clobetasol Propionate 0.05 % 1 application to affected area Externally EVERY NIGHT FOR A MONTH, THEN TWICE WEEKLY for 90 days 06/27/2024 Active Clobetasol Propionate 0.05 % 1 application to affected area Externally THRICE A WEEK X 2 WEEKS THEN TWICE A WEEK for 90 days 07/05/2020 Not-Taking Tylenol 8 Hour Arthritis Pain 650 MG 2 tablets as needed Orally every 8 hrs Active Problems Problem Type SNOMED Code ICD Code Onset Dates Problem Status W/U Status Risk Notes Problem Postmenopausal atrophic vaginitis (82649929) Postmenopausal atrophic vaginitis (N95.2) Active confirmed Vital Signs Temperature 97.2 degrees Fahrenheit 06/27/20 24 Blood pressure systolic 110 mm Hg 06/27/20 24 Blood pressure diastolic 68 mm Hg 024 Height 63.0 in 06/27/2024 Weight 146 lbs 06/27/2024 BMI 25.86 kg/m2 06/27/2024 Encounters Encounter Location Date Provider Diagnosis Total [address] [place] [address] 06/27/2024 Gosia Lock Encounter for gynecological examination (general) (routine) without abnormal findings Z01.419 ; Encounter for screening mammogram for malignant neoplasm of breast Z12.31 ; Other specified disorders of bone density and structure, multiple sites M85.89 ; Lichen sclerosus et atrophicus L90.0 and Postmenopausal atrophic vaginitis N95.2 Assessments Encounter Date Diagnosis (ICD Code) Assessment Notes Treatment Notes Treatment Clinical Notes Section Notes 06/27/2024 Encounter for gynecological examination (general) (routine) without abnormal findings (ICD-10 - Z01.419) NO MORE PAP TESTS. COLONOSCOPY WAS RECOMMENDED. 06/27/2024 Encounter for screening mammogram for malignant neoplasm of breast (ICD-10 - Z12.31) REGULAR MAMMOGRAMS AND SBE'S WERE RECOMMENDED. 06/27/2024 Other specified disorders of bone density and structure, multiple sites (ICD-10 - M85.89) DISCUSSED OSTEOPENIA AND ITS IMPACT ON HER HEALTH. ADEQUATE CALCIUM AND VIT D. WEIGHT BEARING EXERCISES. REPEAT BMD IN 2024. 06/27/2024 Lichen sclerosus et atrophicus (ICD-10 - L90.0) DISCUSSED RECURRENCE OF LICHEN SCLEROSUS LESIONS. APPLY CLOBETASOL OINTMENT NIGHTLY FOR A MONTH AND THEN TWICE WEEKLY. CHECK VULVA Q MONTH AND INCREASE OR DECREASE DOSE NEEDED. 06/27/2024 Postmenopausal atrophic vaginitis (ICD-10 - N95.2) DISCUSSED FINDINGS, DX AND TX OPTIONS. PAT IS ASYMPTOMATIC. Plan Of Treatment Medication Medication Name Sig Start Date Stop Date Notes Clobetasol Propionate 0.05 % 1 applicati on to affected area Externally EVERY NIGHT FOR A MONTH, THEN TWICE WEEKLY for 90 days 06/27/2024 Treatment Notes Assessment Notes Encounter for gynecological examination (general) (routine) without abnormal findings NO MORE PAP TESTS. COLONOSCOPY WAS RECOMMENDED. Encounter for screening mamm ogram for malignant neoplasm of breast REGULAR MAMMOGRAMS AND SBE'S WERE RECOMMENDED. Other specified disorders of bone density and structure, multiple sites DISCUSSED OSTEOPENIA AND ITS IMPACT ON HER HEALTH. ADEQUATE CALCIUM AND VIT D. WEIGHT BEARING EXERCISES. REPEAT BMD IN 2024. Lichen sclerosus et atrophicus DISCUSSED RECURRENCE OF LICHEN SCLEROSUS LESIONS. APPLY CLOBETASOL OINTMENT NIGHTLY FOR A MONTH AND THEN TWICE WEEKLY. CHECK VULVA Q MONTH AND INCREASE OR DECREASE DOSE NEEDED. Postmenopausal atrophic vaginitis DISCUSSED FINDINGS, DX AND TX OPTIONS. PAT IS ASYMPTOMATIC. Pending Test Test Name Order Date MAMMOGRAM, SCREENING 06/27/2024 BONE DENSITY 06/27/2024 MM Digital Mammo Screening 06/27/2024 Next Appt Details Follow Up: 1 Year, Reason: Provider Name:Gosia alvarez, 07/10/2025 08:00:00 AM, [facility], [address], [place], [address], Progress Notes * EVEKENYA CLINTOB:[birth year] (74 yo F)Acc No.[id number]:06/27/2024 PROGRESS NOTES Patient:?TESFAYE TINEO Appointment Provider:?Gosia alvarez M.D. :1950???Age:74 Y???Sex:Female D ate:06/27/2024 Address:[address] [place], [place] [id number] Pcp:ZEYAD CONTRERAS Subjective: * Chief Complaints: * ???LR Annual ASSEMBLER PING PONG TABLE PhysicalAnn ual ASSEMBLER PING PONG TABLE Physical 60-85+ * HPI: ???New/Follow-up Patient Consult:? PAT ENTERED MENOPAUSE IN 2003.? SHE IS NOT SEXUALLY ACTIVE. VULVAR BIOPSY DONE IN 2019 SHOWED LICHEN SCLEROSUS.? SHE RESPONDED WELL TO CLOBETASOL OINTMENT 0.05% AND WAS ON A TWICE WEEKLY MAINTENANCE DOSE.? HOWEVER, SHE RAN OUT OF THE MEDICATION MORE THAN A MONTH AGO.? NO RECURRENCE OF ITCHING. BREAST BIOPSY DONE IN 2014 WAS BENIGN.? SHE HAD LEFT KNEE REPLACEMENT IN 2022. HER LAST MAMMOGRAM DONE IN SEP 2023 SHOWED BREASTS ARE NOT DENSE AND WAS NORMAL. HER LAST PAP TEST IN 2019 WAS NEGATIVE AND HPV NEGATIVE. HER LAST BMD IN 2022 SHOWED THE LOWEST T-SCORES TO BE -1.5 AT THE FEMORAL NECK AND FOREARM.? FRAX=10%/1.5%. SHE HAD A COLONOSCOPY DONE IN 2011.?? MODERNA X 2. ???Annual:? Patient presents for annual exam, ages 60-85, postmenopausal. ?General Health Maintenance:?Current breast complaints:?no breast pain, mass, discharge, or skin changes ?Urinary problems:?patient reports no urinary health problems or bowel health problems ?Calcium intake:?takes adequate calcium via diet and supplementation ?Significant ASSEMBLER PING PONG TABLE problems:?no significant travel ot symptoms or problems * ROS:?general:?no?chest pain.?no?palpitations.?no?headache.?no?cough.?no?shortness of breath.?no?fever.?no?unexplained weight loss.?no?nausea/vomiting.?no?change in bowel movements.?no blood in stool.?no?genitourinary complaints.?no?skin complaints.? * Medical History:? * Inspecting And Testing Lead Hand History:?/ Para?2/2.?Sexual activity?not currently sexually active.?Last Pap Smear:?05/13/20 NIL, NEG HRHPV, 08/2015, neg, NEG HRHPV.?Mammogram:?10/07/23 Breast Tissue is Almost Entirely Fatty, 05/21/20 Breast Tissue is Almost Entirely Fatty, 06/06/18 Breast Tissue is Almost Entirely Fatty, 09/2015 normal, 08/11/14, < 25% glandular.?LMP and menses?Regine.? Control:?None.?Colonoscopy?2011.?Bone Density:?09/08/22, 06/06/18, 2006.? * OB History:?Total pregnancies?2.?Total living children?2.?NVD?2.? * Surgical History:?Right Ankl e Sugery Colonoscopy Right Knee Surgery/Arthroscopic Spinal Surgery Tonsillectomy Total Right Knee Replacement TOTAL LEFT KNEE REPLACEMENT * Hospitalization/Major Diagno stic Procedure:?2 Vaginal Deliveries See Surgical Hx * Family History:?Mother: dece ased 90 yrs, Dementia.?Father: 70 yrs, Emphysema.?Paternal aunt: Pancreatic Cancer.?Maternal aunt: Diabetes.? Maternal Aunt: Diabetes Sister: Breast Cancer, 60. * Social History:?Tobacco Use:?Tobacco Use/Smoking?Are you a: nonsmoker.?Sexual History:?Sexual History?Had sex in the past 12 months (vaginal, oral, or anal)?: No.?Details of Sexual History?Are you sexually active??No ???Drugs/Alcohol:?Drugs?Have you used drugs other than those for medical reasons in the past 12 months??No ?Alcohol Screen (Audit-C)?Did you have a drink containing alcohol in the past year?: Yes, How often did you have a drink containing alcohol in the past year?: 2 to 4 times a month (2 points), How many drinks did you have on a typical day when you were drinking in the past year?: 3 or 4 drinks (1 point), Points: 3, Interpretation: Positive.?Miscellaneous:?Children: yes, 2. ?Domestic violence: no. ?Exercise: yes, Cardio, Weights, Resistance Excercise. ?Home smoke detector use: yes. ?Living with: alone. ?Marital status: . ?Natural support system: yes. ?Occupation: Works full-time. ?Sexual abuse: no. ?Sexually active: no. ?Verbal abuse: no. * Medications:?TakingTylenol 8 Hour Arthritis Pain 650 MG Tablet Extended Release 2 tablets as needed Orally every 8 hrs Taking Tylenol 8 Hour Arthritis Pain 650 MG Tablet Extended Release 2 tablets as needed Orally every 8 hrs Lwr-HqpimfBD-Ldhftzlc 500MG 60 1 tablet ORAL as needed , Notes to Pharmacist: Amadou-MJMotrin 800 mg 1 tablet ORAL as needed , Notes to Pharmacist: Amadou-MJEstradiol Vaginal Cream 0.01% Cream 1 Gram ALONG VULVA Twice a week Clobetasol Propionate 0.05 % Ointment 1 application to affected area Externally THRICE A WEEK X 2 WEEKS THEN TWICE A WEEK Medication List reviewed and reconciled with the patientNot-Taking EC-Naprosyn 500MG 60 1 tablet ORAL as needed , Notes to Pharmacist: Vvk-BRFbp-Xjvmcc Motrin 800 mg 1 tablet ORAL as needed , Notes to Pharmacist: Rsb-RIYce-Semeve Estradiol Vaginal Cream 0.01% Cream 1 Gram ALONG VULVA Twice a week Not-Taking Clobetasol Propionate 0.05 % Ointment 1 application to affected area Externally THRICE A WEEK X 2 WEEKS THEN TWICE A WEEK Medication List reviewed and reconciled with the patient * Allergies:?PERCOCET: Cornelio Dodge[Allergies Verified] Objective: * Vitals:?Ht: 63.0 in, Wt: 146 lbs, BMI:25.86Index, BP: 110/68 mm Hg, Temp: 97.2 F. * Examination: ???General Exam: ?CONSTITUTIONAL:?NECK/THYROID:?RESPIRATORY:?Auscultation: clear to auscultation bilaterally, Respiratory Effort: normal.?CARDIOVASCULAR:?Auscultation: regular rate and rhythm.?BREAST, Right:?BREAST, Left:?GASTROINTESTINAL:?MUSCULOSKELETAL:?SKIN:?NEURO/PSYCH:?Genitourinary: ?EXTERNAL GENITALIA:?VAGINA:?BLADDER:?URETHRA:?CERVIX:?UTERUS:?ADNEXA:?ANUS AND PERINEUM:? Assessment: * Assessment: 1.?Encounter for gynecologic al examination (general) (routine) without abnormal findings - Z01.419???2.?Encounter for screening mammogram for malignant neoplasm of breast - Z12.31???3.?Other specified disorders of bone density and structure, multiple sites - M85.89???4.?Lichen sclerosus et atrophicus - L90.0???5.?Postmenopausal atrophic vaginitis - N95.2??? Plan: * Treatment: 2.?Encounter for screening m ammogram for malignant neoplasm of breast?Imaging: MM Digital Mammo Screening Notes: REGULAR MAMMOGRAMS AND SBE'S WERE RECOMMENDED.?? 3.?Other specified disorders of bone density and structure, multiple sites?Imaging: BONE DENSITY Notes: DISCUSSED OSTEOPENIA AND ITS IMPACT ON HER HEALTH. ADEQUATE CALCIUM AND VIT D. WEIGHT BEARING EXERCISES. REPEAT BMD IN 2024.??4.?Lichen sclerosus et atrophicus? Start Clobetasol Propionate Ointment, 0.05 %, 1 application to affected area, Externally, EVERY NIGHT FOR A MONTH, THEN TWICE WEEKLY, 90 days, 60 GRAMS, Refills 2.?? Notes: DISCUSSED RECURRENCE OF LICHEN SCLEROSUS LESIONS. APPLY CLOBETASOL OINTMENT NIGHTLY FOR A MONTH AND THEN TWICE WEEKLY. CHECK VULVA Q MONTH AND INCREASE OR DECREASE DOSE NEEDED.??5.?Postmenopausal atrophic vaginitis? Notes: DISCUSSED FINDINGS, DX AND TX OPTIONS. PAT IS ASYMPTOMATIC.?? * Imaging:? * ?Imaging: MAMMOGRAM, SCR EENING * Procedure Codes:? * Preventive Medicine:? ??YOUR PREVENTIVE WELLNESS PLAN:?Osteoporosis prevention?Calcium, D, strength training.?Breast Cancer Screening (Mammogram):?annually.?Cervical Cancer Screening (Pap Smear):?q 3 years with HPV screen.?Colorectal Cancer Screening:?q 10 years.? * Follow Up:?1 Year * Images: Billing Information: * Visit Code:? [id number] Preventive Care Est Pt. Age 65 and over. * Procedure Codes:? * Sign off status: Completed true * Appointment Provider:?Gosia Lock M.D. Date:?06/27/2024 Generated for Juan santiago/Leonie/Hermannitting on:?10/06/2024 06:18 AM EST History and Physical Notes * HPI (History of Present Illness) Category Sub-Category Detail Notes Category Not es New/Follow-up Patient Consult PAT ENTERED MENOPAUSE IN 2003. SHE IS NOT SEXUALLY ACTIVE. VULVAR BIOPSY DONE IN 2019 SHOWED LICHEN SCLEROSUS. SHE RESPONDED WELL TO CLOBETASOL OINTMENT 0.05% AND WAS ON A TWICE WEEKLY MAINTENANCE DOSE. HOWEVER, SHE RAN OUT OF THE MEDICATION MORE THAN A MONTH AGO. NO RECURRENCE OF ITCHING. BREAST BIOPSY DONE IN 2014 WAS BENIGN. SHE HAD LEFT KNEE REPLACEMENT IN 2022. HER LAST MAMMOGRAM DONE IN SEP 2023 SHOWED BREASTS ARE NOT DENSE AND WAS NORMAL. HER LAST PAP TEST IN 2019 WAS NEGATIVE AND HPV NEGATIVE. HER LAST BMD IN 2022 SHOWED THE LOWEST T-SCORES TO BE -1.5 AT THE FEMORAL NECK AND FOREARM. FRAX=10%/1.5%. SHE HAD A COLONOSCOPY DONE IN 2011. MODERNA X 2. Annual General Health Maintenance: Current breast complaints:: no breast pain, mass, discharge, or skin changes Urinary problems:: patient r eports no urinary health problems or bowel health problems Calcium intake:: takes adequ ate calcium via diet and supplementation Significant ASSEMBLER PING PONG TABLE problems:: n o significant travel ot symptoms or problems Examination Category Sub-Category Detail Notes Category Not es General Exam CONSTITUTIONAL: General Appearan ce:: alert, in no acute distress, normal, well nourished NECK/THYROID: Thyroid:: normal size and shape Inspection/Palpation:: normal RESPIRATORY: Auscultation: clear to auscultation bilaterally, Respiratory Effort: normal CARDIOVASCULAR: Auscultation: regula r rate and rhythm GASTROINTESTINAL: Hernias:: no hernias present, no inguinal adenopathy Liver and Spleen:: normal Abdomen:: no masses, nontender, nondiste nded MUSCULOSKELETAL: Inspection/Palpation:: no clubb ing, cyanosis, or edema SKIN: Skin:: normal NEURO/PSYCH: Mood/Affect:: normal Orientation:: time , place, person BREAST, Right: Inspection/Palpation :: no discharge, no masses present, no nipple retraction, no skin changes, no skin dimpling, no tenderness, no lymphadenopathy, no axillary mass, no axillary tenderness BREAST, Left: Inspection/Palpation :: no discharge, no masses present, no nipple retraction, no skin changes, no skin dimpling, no tenderness, no lymphadenopathy, no axillary mass, no axillary tenderness Genitourinary EXTERNAL GENITALIA: External Genitalia:: WHITE THINNED OUT LESIONS ALONG THE ANTERIOR VULVA NEAR THE CLITORIS AND ALONG THE FOURCHETTE C/W LICHEN SCLEROSUS. VAGINA: Vagina:: atrophic vaginal tissue , minimal moisture BLADDER: Bladder:: no mass, nontender URETHRA: Urethra:: no erythema or lesions present CERVIX: Cervix:: no lesions, nontender UTERUS: Uterus:: nontender, normal conto ur, normal mobility, normal size ADNEXA: Adnexa:: no masses, no tendernes s ANUS AND PERINEUM: Anus/Perineum:: visually norm al
[2024-10-06 06:34] LABS: MANUAL DIFF FLAG NO
[2024-10-06 07:14] LABS: Appearance Urine Clear; Color Urine Yellow; Glucose Urine UA Negative (Negative); Leukocyte Esterase Urine Negative (Negative); Nitrite Urine Negative (Negative); PH 6.5 (5.0-9.0); Specific Gravity - Urine 1.025 (1.005-1.025); Urine Blood Negative (Negative); Urine Ketones Negative (Negative); Urine Protein Negative (Neg-Trace)
[2024-10-06 07:40] LABS: Basophils Percent Auto 0.5 % (0-2); Eosinophils Absolute Auto 0.1 X10*3/uL (0.0-0.4); Eosinophils Percent Auto 2.3 % (0-4); Hematocrit 38.8 % (37.0-47.0); Hemoglobin 12.8 g/dl (12.0-16.0); Imm Gran Abs Auto 0.02 X10*3/uL (0.00-0.03); Imm Gran Pct Auto 0.3 % (0.0-0.4); Lymphocytes Percent Auto 33.7 % (20-40); Mean Corpuscular Hemoglobin 31.3 pg (27.0-33.0); Mean Corpuscular Volume 94.9 fL (80.0-98.0); Mean Platelet Volume 9.5 fL (9.4-12.3); Monocytes Absolute Auto 0.6 X10*3/uL (0.1-1.2); Monocytes Percent Auto 10.1 % (2-11); Neutrophils Absolute Auto 3.2 x10*3/uL (2.0-8.3); Neutrophils Percent Auto 53.1 % (45-73); Platelet Count 268 X10*3/uL (160-400); Red Blood Count 4.09 X10*6/uL (4.20-5.50); Red Cell Distribution Width 12.2 % (11.0-16.0)
[2024-10-06 08:20] LABS: Alanine Aminotransferase 16 U/L (0-31); Albumin Level 4.1 g/dL (3.5-5.0); Alkaline Phosphatase 68 U/L (39-117); Anion Gap 10 (12-20); Aspartate Amino Transferase 20 U/L (5-31); Bilirubin Total 0.5 mg/dL (0.0-1.0); Blood Urea Nitrogen 12 mg/dL (9-16); Calcium 9.1 mg/dL (8.4-10.2); Carbon Dioxide 26 mmol/L (22-29); Chloride 109 mmol/L (96-108); Estimated Glomerular Filt Rate > 60; Glucose Fasting 80 mg/dL (60-99); Potassium 4.9 mmol/L (3.3-5.1); Sodium 140 mmol/L (135-145); Total Protein 6.9 g/dL (6.5-8.0)
[2024-10-06 08:36] LABS: TSH reflex Free T4 1.28 uIU/mL (0.32-4.0)
== END 2024-10-06 06:16 | disposition home or self-care (01) ==
LOC: HO.LAB 06:15
PROVIDERS: PCP Nurse Practitioner Family; Visit Provider Nurse Practitioner Family
DX: Z00.00 Encounter for general adult medical examination without abnormal findings (principal)
CPT/HCPCS: 36415; 80053; 81003; 84443; 85025

== ENCOUNTER 2024-12-05 09:21 | Outpatient (AMB) | payer MEDICARE, SELFPAY ==
--- NOTE | 2024-12-05 09:43 | MHC.PC.OV ---
Vital Signs 12/05/24 09:49 Height 5 ft 4 in Weight 146 lb 2 oz BMI 25.1 BP 126/72 Blood Pressure Location Rt brachial Position Sitting Respiration 14 Pulse 69 Pulse Source Pulse Oximeter Temp 98.2 F Temp Source Oral Pulse Oximetry (%) 98 Oxygen Delivery Method Room Air Intake Visit Reasons: Cataract surgery Lt eye 12/21 RT eye 01/01 Intake Note: Simin Stern presents in the office for a pre-op visit for her up coming cataract surgery. Research Phlebotomist Required: No Allergies No Known Drug Allergies [NO KNOWN DRUG ALLERGIES] Allergy (Mild, Verified 12/05/24 10:03) NONE Medication List - Last Reconciled 12/05/24 by Norma Zhang CNP acetaminophen ER 650 mg PO TID PRN Tobacco use date assessed: 12/05/24 Fall risk assessment: No Falls in past year Last assessed Fall Risk: 12/05/24 Dental Screening Dental Screen Date: 12/05/24 Did you have a dental visit in the last 12 months?: Yes Did you have a dental problem in the last 6 months where you did not have access to dental care?: No Was dental information given to patient?: Patient has dentist HPI HPI Comments History of Present Illness Details 74-year-old female presents for preop clearance for cataract surgery of the left eye on 12/21/2024 and right eye on 01/01/2025 with [facility]. She offers no complaints and denies acute symptoms at this time. [facility] Medical History (Updated 10/05/24 @ 08:13 by Norma Zhang CNP) Tubular adenoma of colon Patellofemoral arthritis of left knee Post-operative nausea and vomiting Hx of thoracic outlet syndrome Arthritis Surgical History H/O total knee replacement H/O colonoscopy History of knee replacement procedure of right knee History of cervical spinal surgery History of lumbar fusion History of medial meniscus repair of right knee History of open reduction and internal fixation (ORIF) procedure Family History Father Emphysema lung Mother TIA (transient ischemic attack) Alzheimers disease Sister Breast cancer Son Hypertension Down syndrome Mental health disorder Daughter In good health Social History (Updated 12/05/24 @ 09:47 by Ashley Wang MA) Household Members: Family Household Members Other:: son Housing: House Are you a primary skin care instructor to a significant other at home: No Do you presently have visiting nurse or other home services: No Alcohol intake: current Alcohol intake frequency: holidays/special occasions only Comment: patient states has removed any rugs Patient Tobacco Use Status: Never used Tobacco e-Cigarette/Vaping Use: Never Used Second Hand Smoke Exposure: No Use of substances other than those prescribed or required for medical reasons: No service: No Current occupational status: retired Current occupational exposures/hazards: No Cognitive needs: No Hearing needs: No Vision needs: No Questionnaire PHQ-9 Over the last 2 weeks, how often have you been bothered by any of the following problems? 1. Little interest or pleasure in doing things: not at all 2. Feeling down, depressed, or hopeless: not at all 3. Trouble falling or staying asleep, or sleeping too much: not at all 4. Feeling tired or having little energy: not at all 5. Poor appetite or overeating: not at all 6. Feeling bad about yourself - or that you are a failure or have let yourself or your family down: not at all 7. Trouble concentrating on things, such as reading the newspaper or watching television: not at all 8. Moving or speaking so slowly that other people could have noticed. Or the opposite - being so fidgety or restless that you have been moving around a lot more than usual: not at all 9. Thoughts that you would be better off or of hurting yourself in some way: not at all Total score: 0 Depression Screening Interpretation: Negative Depression Screening Done: Yes 37690 - PHQ-9 Billing: Patient declined-do not bill Source: Developed by Drs. Darius Mccarty, Sara Ramires, Morgan Shipley and colleagues, with an educational daron from [employer]. Thrive Questionnaire Date Thrive assessed: 12/05/24 I am a: Patient What is your living situation today?: I have a steady place to live Within the past 12 months, did the food you bought not last and you didn't have the money to get more?: Never true Within the past 12 months, did you worry whether your food would run out before you got money to buy more?: Never true Do you have trouble paying for medicines?: No Do you have trouble getting transportation to medical appointments?: No Do you have trouble paying your heating and electricity bill?: No Do you have trouble taking care of your child, family member or friend?: No Do you have trouble with day-to-day activities such as bathing, preparing meals, shopping, managing finances, etc.?: No Are you currently unemployed and looking for a job?: No Are you interested in more education?: No Please select the resources that you would like help with: None Currently or been in a relationship where the following occur: No concerns reported THRIVE Score: 0 AUDIT C Alcohol Use Questionnaire (AUDIT-C) 1. How often do you have a drink containing alcohol?: 2-4 times a month 2. How many drinks containing alcohol do you have on a typical day when you are drinking?: 1 or 2 3. How often do you have six or more drinks on one occasion?: Never Total Score: 2 Score Reviewed/Action Taken: No VIDYA-7 AMB Questionnaire VIDYA-7 Date VIDYA - 7 assessed: 12/05/24 Not being able to stop or control worryin = Not at all Source: Developed by Drs. Darius Mccarty, Sara Ramires, Morgan Shipley and colleagues, with an educational daron from [employer]. Review of Systems Const Details: Const Denies chills, Denies fatigue, Denies fever(s), Denies headache(s) and Denies weakness ENT Denies dizziness and Denies headache(s) Card Denies chest pain, Denies lightheadedness, Denies dyspnea and Denies other (Palpitations) Resp Denies cough, Denies dyspnea, Denies wheezing and Denies other ( shortness of breath) GI Denies abdominal pain, Denies melena, Denies hematochezia, Denies change in bowel habits, Denies dyspepsia and Denies nausea Denies hematuria and Denies dysuria Musc Denies abnormal gait, Denies myalgias, Denies arthralgias, Denies numbness and Denies tingling Skin/Breast Denies rash, Denies unusual bruising and Denies wounds Neuro Denies abnormal gait, Denies dizziness, Denies headache(s), Denies memory loss, Denies numbness, Denies Sensory deficit (Neuro), Denies tingling and Denies weakness Psych Denies anxiety, Denies depression, Denies memory loss Endo Denies cold intolerance, Denies fatigue, Denies heat intolerance, Denies polydipsia and Denies polyuria Aller/Immun Denies wheezing Physical exam (Primary Care) Vital Signs: Last Vital Signs Temp 98.2 F 12/05/24 09:49 Pulse 69 12/05/24 09:49 Resp 14 12/05/24 09:49 BP 126/72 12/05/24 09:49 Pulse Ox 98 12/05/24 09:49 Oxygen Delivery Method Room Air 12/05/24 09:49 BMI result Body Mass Index 25.1 Tobacco/Smoking Status: Tobacco use Status Tobacco use date assessed 12/05/24 12/05/24 09:52 Patient Tobacco Use Status Never used Tobacco 12/05/24 09:47 e-Cigarette/Vaping Use Never Used 12/05/24 09:47 PHQ-9: PHQ-9 Score PHQ-9: Total score 0 12/05/24 09:53 Depression Screening Interpretation: Negative Thrive Assessment: Date of Thrive Assessment Date Thrive assessed 12/05/24 12/05/24 09:52 Currently or been in a relationship where the following occur: No concerns reported Const Other: General: no acute distress and well developed Nutritional Appearance: well nourished Orientation/consciousness: patient oriented x3 HENMT Head: Yes normocephalic and Yes atraumatic Eyes General: appearance normal, both eyes and all related structures Pupils: Equal, round and reactive pupils present EOM: EOMs intact bilaterally Resp Effort & Inspection: normal respiratory effort Auscultation: clear to auscultation bilaterally Cardio Rate: regular rate Rhythm: regular rhythm Heart sounds: S1 normal heart sound present, S2 normal heart sound present, no gallops, no murmurs and no rubs GI Palpation (GI): No Abdominal aortic bruit present, Soft to palpation, nontender, No hepatosplenomegaly present and No Rebound tenderness present Auscultation: normal bowel sounds General: Yes no CVA tenderness Back/Spine/Pelvis Back: no CVA tenderness Cervical Spine: cervical ROM normal and No Cervical spine tenderness Thoracic/Lumbar Spine: thoraco-lumbar ROM normal, No pain with thoraco-lumbar ROM, No thoracic spinal tenderness and No lumbar spinal tenderness Extrem General: Yes normal to inspection, No edema and No calf tenderness Skin General: warm and dry. Normal skin color. Normal skin turgor Lesions: no lesions Rashes: no rashes Trauma: no lacerations or abrasions Wounds: no wounds Nails: normal Neuro General: patient oriented x3, gait normal and no focal neuro deficit Cranial nerves: Yes Equal, round and reactive pupils present Cognition (Neuro): normal cognition Gait exam (Neuro): Normal gait present Sensory Exam: No Sensory deficit (Neuro) Psych Appearance: grossly normal Affect: normal affect Attitude: cooperative Thought process: Normal thought process present Coding Level of Care Code Est Pt Level 3 (01415) Diagnoses Preop examination Z01.818 Assessment & Plan Assessment & Plan (1) Preop examination: Code(s): Z01.818 - Encounter for other preprocedural examination Category: Medical Plan: Normal physical exam. No focal neuro deficit. Recent lab results are unremarkable except for slightly elevated cholesterol levels. Patient has no medical contraindications at this time for cataract surgery of both eyes.
[2024-12-05 09:49] VITALS: BP 126/72; PULSE 69; RESP 14; TEMP 36.8; O2SAT 98; BMI 25.1
--- OUTSIDE RECORDS SUMMARY | 2024-12-05 10:27 | XMS_ITS ---
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 Physical 60-85+ Medications Medication SIG (Take, Route, [...] Status Risk Notes Problem Postmenopausal atrophic vaginitis (61132793) Postmenopausal atrophic vaginitis (N95.2) Active confirmed Vital Signs Temperature 97.2 degrees Fahrenheit 06/27/20 24 Blood pressure systolic 110 mm Hg 06/27/20 24 Blood pressure diastolic 68 mm Hg 024 Height 63.0 in 06/27/2024 Weight 146 lbs 06/27/2024 BMI 25.86 kg/m2 06/27/2024 Encounters Encounter Location Date Provider Diagnosis Total [address] [place] [address] 06/27/2024 Gosia Lock Encounter for gynecological examination [...] Reason: Provider Name:Gosia alvarez, 07/10/2025 08:00:00 AM, [facility], [address], [place], [address], Progress Notes * EVEKENYA CLINTOB:[birth year] (74 yo F)Acc No.[id number]:06/27/2024 PROGRESS NOTES Patient:?TESFAYE TINEO Appointment Provider:?Gosia alvarez M.D. :1950???Age:74 Y???Sex:Female D ate:06/27/2024 Address:[address] [place], [place] [id number] Pcp:ZEYAD CONTRERAS Subjective: * Chief Complaints: * ???LR Annual REGIONAL SAFETY MANAGER PhysicalAnn ual REGIONAL SAFETY MANAGER Physical 60-85+ * HPI: ???New/Follow-up Patient Consult:? [...] adequate calcium via diet and supplementation ?Significant REGIONAL SAFETY MANAGER problems:?no significant cook taco symptoms or problems * ROS:?general:?no?chest pain.?no?palpitations.?no?headache.?no?cough.?no?shortness of breath.?no?fever.?no?unexplained weight loss.?no?nausea/vomiting.?no?change in bowel movements.?no blood in stool.?no?genitourinary complaints.?no?skin complaints.? * Medical History:? 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 Control:?None.?Colonoscopy?2011.?Bone Density:?09/08/22, 06/06/18, 2006.? * OB History:?Total [...] tablets as needed Orally every 8 hrs Lbl-CsdgflUO-Fiphalxe 500MG 60 1 tablet ORAL as needed [...] ORAL as needed , Notes to Pharmacist: [id number] Motrin 800 mg 1 tablet ORAL as needed , Notes to Pharmacist: [id number] Estradiol Vaginal Cream 0.01% Cream 1 Gram [...] Temp: 97.2 F. * Examination: ???General Exam: ?CONSTITUTIONAL:?General Appearance:?alert, in no acute distress, normal, well nourished ?NECK/THYROID:?Inspection/Palpation:?normal ?Thyroid:?normal size and shape ?RESPIRATORY:?Auscultation: clear to auscultation bilaterally, Respiratory Effort: normal.?CARDIOVASCULAR:?Auscultation: regular rate and rhythm.?BREAST, Right:?Inspection/Palpation:?no discharge, no masses present, no nipple retraction, no skin changes, no skin dimpling, no tenderness, no lymphadenopathy, no axillary mass, no axillary tenderness ?BREAST, Left:?Inspection/Palpation:?no discharge, no masses present, no nipple retraction, no skin changes, no skin dimpling, no tenderness, no lymphadenopathy, no axillary mass, no axillary tenderness ?GASTROINTESTINAL:?Abdomen:?no masses, nontender, nondistended ?Liver and Spleen:?normal ?Hernias:?no hernias present, no inguinal adenopathy ?MUSCULOSKELETAL:?Inspection/Palpation:?no clubbing, cyanosis, or edema ?SKIN:?Skin:?normal ?NEURO/PSYCH:?Orientation:?time , place, person ?Mood/Affect:?normal?Genitourinary: ?EXTERNAL GENITALIA:?External Genitalia:?WHITE THINNED OUT LESIONS ALONG THE ANTERIOR VULVA NEAR THE CLITORIS AND ALONG THE FOURCHETTE C/W LICHEN SCLEROSUS. ?VAGINA:?Vagina:?atrophic vaginal tissue, minimal moisture ?BLADDER:?Bladder:?no mass, nontender ?URETHRA:?Urethra:?no erythema or lesions present ?CERVIX:?Cervix:?no lesions, nontender ?UTERUS:?Uterus:?nontender, normal contour, normal mobility, normal size ?ADNEXA:?Adnexa:?no masses, no tenderness ?ANUS AND PERINEUM:?Anus/Perineum:?visually normal??? Assessment: * Assessment: 1.?Encounter for gynecologic al [...] * Images: Billing Information: * Visit Code:? 65978 Preventive Care Est Pt. Age 65 and over. * Procedure Codes:? * Sign off status: Completed true * Appointment Provider:?Gosia Lock M.D. Date:?06/27/2024 Generated for Printi ng/Leonie/Elismitting on:?12/05/2024 10:26 AM EDT History and Physical Notes * HPI (History [...] ate calcium via diet and supplementation Significant REGIONAL SAFETY MANAGER problems:: n o significant cook taco symptoms or problems Examination Category Sub-Category Detail [...]
--- OUTSIDE RECORDS SUMMARY | 2024-12-05 10:27 | XMS_ITS ---
Author Organization [facility] [employer] Address [address] [place] [address] Care Team Providers Care Building Specialist Name Role Phone HUGO ASTORGA Primary Care Provider Unavail Gosia De La Rosa Unavailable [phone] REASON FOR VISIT INTERVAL BREAST & PELVIC EXAM Encounters Encounter Location Date Provider Diagnosis [facility] [employer] [address] [facility] [address] [place] [address] 06/25/2023 Gosia Lock Plan Of Treatment Next Appt Details Provider Name:Gosia alvarez, 07/10/2025 08:00:00 AM, [address] [place] [address], [address], [place], [address], Progress Notes * ANIA TINEOEDOB:[birth year] (74 yo F)Acc No.[id number]:06/25/2023 PROGRESS NOTES Patient:?TESFAYE TINEO Appointment Provider:?Gosia alvarez M.D. :1950???Age:73 Y???Sex:Female D ate:06/25/2023 Address:[address] [place] [address] Pcp:ZEYAD CONTRERAS Subjective: * Chief Complaints: * ???1. INTERVAL BREAST & PELV IC EXAM. * Medical History:? Objective: * Vitals:? Assessment: Plan: * Treatment: * Images: Billing Information: * Visit Code:? * Procedure Codes:? * Electronic signature of Aye Lock MD on 12/05/2024 at 10:26 AM EDT Sign off status: Pending * Appointment Provider:?Gosia Lock M.D. Date:?06/25/2023 Generated for Juan santiago/Leonie/Hermannitting on:?12/05/2024 10:26 AM EDT
--- OUTSIDE RECORDS SUMMARY | 2024-12-05 10:27 | XMS_ITS | Patient Health Record ---
Author Organization [facility] Address [address] [place] [address] [address] [place] [address] Care Team Providers Care Property Supervisor Name Role Phone HUGO ASTORGA Primary Care Provider Unavail able Gosia Lock Unavailable [phone] Allergies Allergen (clinical drug ingredient) Drug/Non Drug Allergy documented on EMR Reaction Allergy Type Onset Date Status acetaminophen / oxycodone PERCOCET Upset Stomach Drug Allergy Active Reason For Referral No Information Medications Medication SIG (Take, Route, Frequency, Duration) Notes Start Date End Date Status Estradiol Vaginal Cream 0.01% 1 Gram ALONG VULVA Twice a week for 90 days 04/16/2021 Not-Taking Motrin 800 mg 1 tablet ORAL as needed [facility]- 07/07/2014 Not-Taking EC-Naprosyn 500MG 1 tablet ORAL as needed [facility]- 06/17/20 13 Not-Taking Tylenol 8 Hour Arthritis Pain 650 MG 2 tablets as needed Orally every 8 hrs Active Clobetasol Propionate 0.05 % 1 application to affected area Externally EVERY NIGHT FOR A MONTH, THEN TWICE WEEKLY for 90 days 06/27/2024 Active Clobetasol Propionate 0.05 % 1 application to affected area Externally THRICE A WEEK X 2 WEEKS THEN TWICE A WEEK for 90 days 07/05/2020 Not-Taking Problems Problem Type SNOMED Code ICD Code Onset Dates Problem Status W/U Status Risk Notes Problem Postmenopausal atrophic vaginitis (00852644) Postmenopausal atrophic vaginitis (N95.2) Active confirmed Problem Localized morphea (349857016) 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 Problem Atrophy of vulva (870842532) Atrophy of vulva (N90.5) Active confirmed Problem Menopausal symptom (89818873) Symptomatic menopausal or female climacteric states (627.2) Active confirmed Major Problem Osteoarthritis (455771980) Osteoarthrosis, unspecified whether generalized or localized, unspecified site (715.90) Active confirmed Major Problem Gynecological examination normal (039621560034116) Routine gynecological examination (V72.31) Active confirmed Major Problem Screening for malignant neoplasm of colon (276609109) Special screening for malignant neoplasms, colon (V76.51) Active confirmed Major Vital Signs Temperature 97.2 degrees Fahrenheit 06/27/2024 Blood pressure diastolic 68 mm Hg 06/27/2024 Height 63.0 in 06/27/2024 Blood pressure systolic 110 mm Hg 06/27/2024 Weight 146 lbs 06/27/2024 BMI 25.86 kg/m2 06/27/2024 Encounters Encounter Location Date Provider Diagnosis [address] [place] [address] 06/27/2024 Gosia Lock Encounter for gynecological examination [...] OPTIONS. PAT IS ASYMPTOMATIC. Plan Of Treatment Pending Test Test Name Order Date MAMMOGRAM, SCREENING 06/27/2024 MAMMOGRAM, SCREENING 09/14/2015 MAMMOGRAM, SCREENING 06/24/2022 BONE DENSITY 06/24/2022 BONE DENSITY 06/27/2024 MM Digital Mammo Screening 06/27/2024 MM Digital Mammo Screening 06/24/2022 Next Appt Details Provider Name:Gosia alvarez, 07/10/2025 08:00:00 AM, [address] [facility], [address], [place], [address], Insurance Providers Payer Name Payer Address Payer Phone Subscriber Number Group Number Insured Name Patient Relationship to Insured Coverage Start Date Coverage End Date MEDICARE [address] HANSEL HERNANDEZ [id number] [phone] [id number] TESFAYE TINEO Self - patient is the insured MEDEX [address] [place] [address] [phone] [id number] TESFAYE TINEO Self - patient is the insured Medical (General) History Medical History History ICD Code Unspecified osteoarthritis, unspecified site M19.90 Menopausal and female climacteric states N95.1 Induration of breast N64.51 Postmenopausal atrophic vaginitis N95.2 Unspecified lump in the right breast, up per outer quadrant N63.11 Lichen sclerosus et atrophicus L90.0 Atrophy of vulva N90.5 Disorder of bone density and structure, unspecified M85.9 Surgical History Surgery Date(Month/Year) Right Ankle Sugery Colonoscopy Right Knee Surgery/Arthroscopic Spinal Surgery Tonsillectomy Total Right Knee Replacement TOTAL LEFT KNEE REPLACEMENT Hospitalization History Reason Date(Month/Year) See Surgical Hx 2 Vaginal Deliveries
== END 2024-12-05 12:17 | disposition home or self-care (01) ==
PROVIDERS: PCP Nurse Practitioner Family; Visit Provider Nurse Practitioner Family
DX: Z01.818 Encounter for other preprocedural examination (principal)

== ENCOUNTER → 2024-12-05 09:21 | Outpatient (BNVA) | payer MEDICARE, SELFPAY | PROVIDERS: PCP Nurse Practitioner Family; Visit Provider Nurse Practitioner Family | DX: Z01.818 Encounter for other preprocedural examination (principal) | CPT/HCPCS: 96127; 99212 ==

== ENCOUNTER 2025-01-20 06:57 | Outpatient (REF) | payer MEDICARE, SELFPAY ==
[2025-01-20 08:10] LABS: Cholesterol 251 mg/dL (<200); HDL Cholesterol 88 mg/dL (>40); LDL Cholesterol Calculated 144 mg/dL (<100); Triglycerides 96 mg/dL (<150)
== END 2025-01-20 06:58 | disposition home or self-care (01) ==
LOC: HO.LAB 06:57
PROVIDERS: PCP Nurse Practitioner Family; Visit Provider Nurse Practitioner Family
DX: E78.00 Pure hypercholesterolemia, unspecified (principal)
CPT/HCPCS: 36415; 80061

== ENCOUNTER 2025-01-23 10:36 | Outpatient (AMB) | payer MEDICARE, SELFPAY ==
--- NOTE | 2025-01-23 10:47 | MHC.PC.OV ---
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: No Is last menstrual period known: No Post menopausal: No Patient : No Allergies No Known Drug Allergies [NO KNOWN DRUG ALLERGIES] Allergy (Mild, Verified 01/23/25 11:00) NONE Medication List - Last Reconciled 01/23/25 by Norma Zhang CNP acetaminophen ER 650 mg PO TID PRN Tobacco use date assessed: 01/23/25 Fall risk assessment: No Falls in past year Last assessed Fall Risk: 01/23/25 Dental Screening Dental Screen Date: 01/23/25 Did you have a dental visit in the last 12 months?: Yes Did you have a dental problem in the last 6 months where you did not have access to dental care?: No Was dental information given to patient?: Patient has dentist HPI HPI Comments History of Present Illness Details 74-year-old female presents for hypercholesterolemia follow-up. She admits to making healthy lifestyle choices. She was recently on vacation in [place] and ate more than usual. She offers no complaints and denies acute symptoms at this time. She recently had cataract surgery of both eyes. She has a follow up appointment with Ophthalmology in 2 days. [facility] Medical History (Updated 10/05/24 @ 08:13 by Norma Zhang CNP) Tubular adenoma of colon Patellofemoral arthritis of left knee Post-operative nausea and vomiting Hx of thoracic outlet syndrome Arthritis Surgical History H/O total knee replacement H/O colonoscopy History of knee replacement procedure of right knee History of cervical spinal surgery History of lumbar fusion History of medial meniscus repair of right knee History of open reduction and internal fixation (ORIF) procedure Family History Father Emphysema lung Mother TIA (transient ischemic attack) Alzheimers disease Sister Breast cancer Son Hypertension Down syndrome Mental health disorder Daughter In good health Social History (Updated 12/05/24 @ 09:47 by Ashley Wang MA) Household Members: Family Household Members Other:: son Housing: House Are you a primary patient care coordinator to a significant other at home: No Do you presently have visiting nurse or other home services: No Alcohol intake: current Alcohol intake frequency: holidays/special occasions only Comment: patient states has removed any rugs Patient Tobacco Use Status: Never used Tobacco e-Cigarette/Vaping Use: Never Used Second Hand Smoke Exposure: No service: No Current occupational status: retired Current occupational exposures/hazards: No Cognitive needs: No Hearing needs: No Vision needs: No Questionnaire Thrive Questionnaire Date Thrive assessed: 09/28/24 I am a: Patient What is your living situation today?: I have a steady place to live Within the past 12 months, did the food you bought not last and you didn't have the money to get more?: Never true Within the past 12 months, did you worry whether your food would run out before you got money to buy more?: Never true Do you have trouble paying for medicines?: No Do you have trouble getting transportation to medical appointments?: No Do you have trouble paying your heating and electricity bill?: No Do you have trouble taking care of your child, family member or friend?: No Do you have trouble with day-to-day activities such as bathing, preparing meals, shopping, managing finances, etc.?: No Are you currently unemployed and looking for a job?: No Are you interested in more education?: No Please select the resources that you would like help with: None Currently or been in a relationship where the following occur: No concerns reported THRIVE Score: 0 VIDYA-7 AMB Questionnaire VIDYA-7 Date VIDYA - 7 assessed: 12/05/24 Source: Developed by Drs. Darius Mccarty, Sara Ramires, Morgan Shipley and colleagues, with an educational daron from [employer]. Review of Systems Const Details: Const Denies chills, Denies fatigue, Denies fever(s), Denies headache(s) and Denies weakness ENT Denies dizziness and Denies headache(s) Card Denies chest pain, Denies lightheadedness, Denies dyspnea and Denies other (Palpitations) Resp Denies cough, Denies dyspnea, Denies wheezing and Denies other ( shortness of breath) GI Denies abdominal pain, Denies melena, Denies hematochezia, Denies change in bowel habits, Denies dyspepsia and Denies nausea Denies hematuria and Denies dysuria Musc Denies abnormal gait, Denies myalgias, Denies arthralgias, Denies numbness and Denies tingling Skin/Breast Denies rash, Denies unusual bruising and Denies wounds Neuro Denies abnormal gait, Denies dizziness, Denies headache(s), Denies memory loss, Denies numbness, Denies Sensory deficit (Neuro), Denies tingling and Denies weakness Psych Denies anxiety, Denies depression, Denies memory loss Endo Denies cold intolerance, Denies fatigue, Denies heat intolerance, Denies polydipsia and Denies polyuria Aller/Immun Denies wheezing Physical exam (Primary Care) Tobacco/Smoking Status: Tobacco use Status Tobacco use date assessed 12/05/24 01/23/25 10:48 Patient Tobacco Use Status Never used Tobacco 01/23/25 10:48 e-Cigarette/Vaping Use Never Used 01/23/25 10:48 Thrive Assessment: Date of Thrive Assessment Date Thrive assessed 09/28/24 01/23/25 10:48 Currently or been in a relationship where the following occur: No concerns reported Const Other: General: no acute distress and well developed Nutritional Appearance: well nourished Orientation/consciousness: patient oriented x3 HENMT Head: Yes normocephalic and Yes atraumatic Eyes General: appearance normal, both eyes and all related structures Pupils: Equal, round and reactive pupils present EOM: EOMs intact bilaterally Resp Effort & Inspection: normal respiratory effort Auscultation: clear to auscultation bilaterally Cardio Rate: regular rate Rhythm: regular rhythm Heart sounds: S1 normal heart sound present, S2 normal heart sound present, no gallops, no murmurs and no rubs GI Palpation (GI): No Abdominal aortic bruit present, Soft to palpation, nontender, No hepatosplenomegaly present and No Rebound tenderness present Auscultation: normal bowel sounds General: Yes no CVA tenderness Back/Spine/Pelvis Back: no CVA tenderness Cervical Spine: cervical ROM normal and No Cervical spine tenderness Thoracic/Lumbar Spine: thoraco-lumbar ROM normal, No pain with thoraco-lumbar ROM, No thoracic spinal tenderness and No lumbar spinal tenderness Extrem General: Yes normal to inspection, No edema and No calf tenderness Skin General: warm and dry. Normal skin color. Normal skin turgor Neuro General: patient oriented x3, gait normal and no focal neuro deficit Cranial nerves: Yes Equal, round and reactive pupils present Cognition (Neuro): normal cognition Gait exam (Neuro): Normal gait present Sensory Exam: No Sensory deficit (Neuro) Psych Appearance: grossly normal Affect: normal affect Attitude: cooperative Thought process: Normal thought process present Coding Level of Care Code Est Pt Level 3 (16562) Diagnoses Hypercholesterolemia E78.00 Assessment & Plan Assessment & Plan (1) Hypercholesterolemia: Code(s): E78.00 - Pure hypercholesterolemia, unspecified Category: Medical Plan: Recent total cholesterol and LDL levels are elevated, 251 and 144 respectively; previous levels were 210 and 120 respectively. Ezetimibe 10 mg daily ordered; advised to take as prescribed. Instructed on the risks, benefits, and potential adverse reactions of the medication. Advised to limit foods high in saturated fat and avoid foods high in trans fat. Routine exercise encouraged. Fast for 10-12 hours, may drink water, perform lipid panel blood work 2-3 days before next visit. Follow-up in 6-8 weeks for telehealth visit for labs review. Return sooner with symptoms or concerns. Verbalized understanding and agreed with the plan. Orders: Orders Lipid Panel 6 Weeks E78.00 - Pure hypercholesterolemia, unspecified Medications: New ezetimibe (Zetia) 10 mg PO DAILY 30 days 30 tabs 3RF
[2025-01-23 10:56] VITALS: BP 130/76; PULSE 70; RESP 16; TEMP 36.7; O2SAT 97; BMI 25.6
--- OUTSIDE RECORDS SUMMARY | 2025-01-23 11:22 | XMS_ITS | Patient Health Record ---
Author Organization [facility] Address [address] [place] [address] [address] [place] [address] Care Team Providers Care Administrative Personal Assistant Name Role Phone HUGO ASTORGA Primary Care Provider Unavail able Gosia Lock Unavailable [phone] Allergies Allergen (clinical drug ingredient) Drug/Non Drug [...] 800 mg 1 tablet ORAL as needed [facility] [place] 07[place]07[place]2014 Not-Taking EC-Naprosyn 500MG 1 tablet ORAL as needed [facility] [place] 06/17/20 13 Not-Taking Tylenol 8 Hour Arthritis [...] Status Risk Notes Problem Postmenopausal atrophic vaginitis (45205406) Postmenopausal atrophic vaginitis (N95.2) Active confirmed Problem Localized morphea (559429242) 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 Problem Atrophy of vulva (184400073) Atrophy of vulva (N90.5) Active confirmed Problem Menopausal symptom (79512171) Symptomatic menopausal or female climacteric states (627.2) Active confirmed Major Problem Osteoarthritis (030597341) Osteoarthrosis, unspecified whether generalized or localized, unspecified site (715.90) Active confirmed Major Problem Gynecological examination normal (834467506434323) Routine gynecological examination (V72.31) Active confirmed Major Problem Screening for malignant neoplasm of colon (374289548) Special screening for malignant neoplasms, colon (V76.51) Active confirmed Major Vital Signs Temperature 97.2 degrees Fahrenheit 06/27/2024 Blood pressure diastolic 68 mm Hg 06/27/2024 Height 63.0 in 06/27/2024 Blood pressure systolic 110 mm Hg 06/27/2024 Weight 146 lbs 06/27/2024 BMI 25.86 kg/m2 06/27/2024 Encounters Encounter Location Date Provider Diagnosis [address] [place] [address] 06/27/2024 Gosia Lock Encounter for gynecological examination [...] Test Test Name Order Date MAMMOGRAM, SCREENING 09/14/2015 MAMMOGRAM, SCREENING 06/24/2022 MAMMOGRAM, SCREENING 06/27/2024 BONE DENSITY 06/24/2022 BONE DENSITY 06/27/2024 MM Digital Mammo Screening 06/27/2024 MM Digital Mammo Screening 06/24/2022 Next Appt Details Provider Name:Gosia alvarez, 07/10/2025 08:00:00 AM, [address] [facility], [address], [place], [address], Insurance Providers Payer Name Payer Address Payer Phone Subscriber Number Group Number Insured Name Patient Relationship to Insured Coverage Start Date Coverage End Date MEDICARE [address] HANSEL HERNANDEZ [id number] [phone] [id number] TESFAYE TINEO Self - patient is the insured MEDEX [address] [place] [address] [phone] [id number] TESFAYE TINEO Self - patient is [...]
== END 2025-01-23 11:14 | disposition home or self-care (01) ==
LOC: HO.HMCFM 10:37
PROVIDERS: PCP Nurse Practitioner Family; Visit Provider Nurse Practitioner Family
DX: E78.00 Pure hypercholesterolemia, unspecified (principal)

== ENCOUNTER → 2025-01-23 10:36 | Outpatient (BNVA) | payer MEDICARE, SELFPAY | PROVIDERS: PCP Nurse Practitioner Family; Visit Provider Nurse Practitioner Family | DX: E78.00 Pure hypercholesterolemia, unspecified (principal) | CPT/HCPCS: 99212 ==

== ENCOUNTER 2025-03-14 06:19 | Outpatient (REF) | payer MEDICARE, SELFPAY ==
[2025-03-14 08:13] LABS: Cholesterol 204 mg/dL (<200); HDL Cholesterol 87 mg/dL (>40); Triglycerides 76 mg/dL (<150)
== END 2025-03-14 06:20 | disposition home or self-care (01) ==
LOC: HO.LAB 06:19
PROVIDERS: PCP Nurse Practitioner Family; Visit Provider Nurse Practitioner Family
DX: E78.00 Pure hypercholesterolemia, unspecified (principal)
CPT/HCPCS: 36415; 80061

== ENCOUNTER 2025-03-19 14:25 | Outpatient (AMB) | payer MEDICARE, SELFPAY ==
--- NOTE | 2025-03-19 14:14 | A.OFFPC_ITS ---
Intake Visit Reasons: Telehealth 6-8 wks hypercholesterolemia Intake Note: patient here for 6-8 wks Telehealth follow up on Hypercholesterolemia Food Service Lead Required: No Is last menstrual period known: No Post menopausal: No Patient : No Allergies No Known Drug Allergies (NO KNOWN DRUG ALLERGIES) Allergy (Mild, Verified 03/19/25 14:15) NONE Tobacco use date assessed: 03/19/25 Fall risk assessment: No Falls in past year Last assessed Fall Risk: 03/19/25 Dental Screening Dental Screen Date: 03/19/25 Did you have a dental visit in the last 12 months?: Yes Did you have a dental problem in the last 6 months where you did not have access to dental care?: No Was dental information given to patient?: Patient has dentist HPI HPI Comments History of Present Illness Details 74-year-old female presents for hypercho lesterolemia follow-up. She notes that she has been taking ezetimibe 10 mg daily without adverse reactions. She admits to making healthy lifestyle choices. She offers no complaints and denies acute symptoms at this time. [facility] Medical History (Updated 10/05/24 @ 08:13 by Norma Zhang CNP) Tubular adenoma of colon Patellofemoral arthritis of left knee Post-operative nausea and vomiting Hx of thoracic outlet syndrome Arthritis Surgical History H/O total knee replacement H/O colonoscopy History of knee replacement procedure of right knee History of cervical spinal surgery History of lumbar fusion History of medial meniscus repair of right knee History of open reduction and internal fixation (ORIF) procedure Family History Father Emphysema lung Mother TIA (transient ischemic attack) Alzheimers disease Sister Breast cancer Son Hypertension Down syndrome Mental health disorder Daughter In good health Social History (Updated 12/05/24 @ 09:47 by Ashley Wang MA) Household Members: Family Household Members Other:: son Housing: House Are you a primary dog day care attendant to a significant other at home: No Do you presently have visiting nurse or other home services: No Alcohol intake: current Alcohol intake frequency: holidays/special occasions only Comment: patient states has removed any rugs Patient Tobacco Use Status: Never used Tobacco e-Cigarette/Vaping Use: Never Used Second Hand Smoke Exposure: No Patient : No service: No Current occupational status: retired Current occupational exposures/hazards: No Cognitive needs: No Hearing needs: No Vision needs: No Questionnaire Thrive Questionnaire Date Thrive assessed: 09/28/24 VIDYA-7 AMB Questionnaire VIDYA-7 Date VIDYA - 7 assessed: 12/05/24 Source: Developed by Drs. Darius Mccarty, Sara Ramires, Morgan Shipley and colleagues, with an educational daron from [employer]. Review of Systems Const Details: Denies chills, Denies fatigue, Denies fever(s), Denies headache(s) and Denies weakness Cardiac Denies chest pain, Denies claudication, Denies leg edema, Denies lightheadedness, Denies palpitations, Denies dyspnea, Denies dyspnea on exertion, Denies orthopnea and Denies other (Loss of consciousness) Resp Denies cough, Denies excessive phlegm production, Denies dyspnea, Denies dyspnea on exertion, Denies snoring and Denies wheezing Physical exam (Primary Care) Tobacco/Smoking Status: Tobacco use Status Tobacco use date assessed 03/19/25 03/19/25 14:16 Patient Tobacco Use Status Never used Tobacco 03/19/25 14:16 e-Cigarette/Vaping Use Never Used 03/19/25 14:16 Thrive Assessment: Date of Thrive Assessment Date Thrive assessed 09/28/24 03/19/25 14:16 Const Other: Patient is alert and oriented times 3 Telehealth Telehealth Telehealth Platform: Telephone Location of provider rendering services: practice address Location of patient: address on file Patient Identification confirmed using: Name, : Yes Telehealth method: voice only Patient verbally consented to treatment: Yes Patient verbally consented to billing insurance company: Yes Patient informed of any privacy concerns related to visit: Yes Coding Level of Care Code Tele Est Pt Level 3 (10152) Diagnoses Hypercholesterolemia E78.00 Time Spent (min) 15 Assessment & Plan Assessment & Plan (1) Hypercholesterolemia: Code(s): E78.00 - Pure hypercholesterolemia, unspecified Category: Medical Plan: Recent total cholesterol and LDL levels are slightly elevated, 204 and 102 respectively; previous levels were 251 and 144 respectively. Continue current treatment regimen. Advised to limit foods high in saturated fat and avoid foods high in trans fat. Routine exercise encouraged. Fast for 10-12 hours, may drink water, and perform lipid panel blood work 2-3 days before next visit. Follow-up for a telehealth visit in 2 months. Return sooner with symptoms or concerns. Verbalized understanding and agreed with the plan. Orders: Orders Lipid Panel 2 Months E78.00 - Pure hypercholesterolemia, unspecified
--- OUTSIDE RECORDS SUMMARY | 2025-03-19 15:16 | XMS_ITS | Patient Health Record ---
Author Organization [facility] Address [address] [place] [address] [address] [place] [address] Care Team Providers Care Facility Rehab Director Name Role Phone HUGO ASTORGA Primary Care Provider Unavail able Gosia Lock Unavailable [phone] Allergies Allergen (clinical drug ingredient) Drug/Non Drug Allergy documented on EMR Reaction Allergy Type Onset Date Status acetaminophen / oxycodone PERCOCET Upset Stomach Drug Allergy Active Reason For Referral No Information Medications Medication SIG (Take, Route, Frequency, Duration) Notes Start Date End Date Status Estradiol Vaginal Cream 0.01% 1 Gram ALONG VULVA Twice a week; Duration: 90 days 04/16/2021 Not-Taking Motrin 800 mg 1 tablet ORAL as needed [facility] [place] 07/07/2014 Not-Taking EC-Naprosyn 500MG 1 tablet ORAL as needed [facility] 06/17/20 13 Not-Taking Tylenol 8 Hour Arthritis Pain 650 MG 2 tablets as needed Orally every 8 hrs Active Clobetasol Propionate 0.05 % 1 application to affected area Externally EVERY NIGHT FOR A MONTH, THEN TWICE WEEKLY; Duration: 90 days 06/27/2024 Active Clobetasol Propionate 0.05 % 1 application to affected area Externally THRICE A WEEK X 2 WEEKS THEN TWICE A WEEK; Duration: 90 days 07/05/2020 Not-Taking Problems Problem Type SNOMED Code ICD Code Onset Dates Problem Status W/U Status Risk Notes Problem Postmenopausal atrophic vaginitis (61639891) Postmenopausal atrophic vaginitis (N95.2) Active confirmed Problem Localized morphea (813031775) 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 Problem Atrophy of vulva (017147023) Atrophy of vulva (N90.5) Active confirmed Problem Menopausal symptom (08550700) Symptomatic menopausal or female climacteric states (627.2) Active confirmed Major Problem Osteoarthritis (699570478) Osteoarthrosis, unspecified whether generalized or localized, unspecified site (715.90) Active confirmed Major Problem Gynecological examination normal (540463087259760) Routine gynecological examination (V72.31) Active confirmed Major Problem Screening for malignant neoplasm of colon (071254520) Special screening for malignant neoplasms, colon (V76.51) Active confirmed Major Vital Signs Temperature 97.2 degrees Fahrenheit 06/27/2024 Blood pressure diastolic 68 mm Hg 06/27/2024 Height 63.0 in 06/27/2024 Blood pressure systolic 110 mm Hg 06/27/2024 Weight 146 lbs 06/27/2024 BMI 25.86 kg/m2 06/27/2024 Encounters Encounter Location Date Provider Diagnosis [address] [address] 06/27/2024 Gosia Lock Encounter for gynecological examination [...] Provider Name:Gosia alvarez, 07/10/2025 08:00:00 AM, [address] [facility], [address], [place], [address], Insurance Providers Payer Name Payer Address Payer Phone Subscriber Number Group Number Insured Name Patient Relationship to Insured Coverage Start Date Coverage End Date MEDICARE [address] [place] [id number] [phone] [id number] YAMLIENIHARIKACECILIATESFAYE Self - patient is the insured MEDEX [address] [place] [address] [phone] [id number] CECILIA TINEOJANE Self - patient is the insured Medical [...]
== END 2025-03-19 16:59 | disposition home or self-care (01) ==
LOC: HO.HMCFM 14:25
PROVIDERS: PCP Nurse Practitioner Family; Visit Provider Nurse Practitioner Family
DX: E78.00 Pure hypercholesterolemia, unspecified (principal)

== ENCOUNTER 2025-05-18 06:18 | Outpatient (REF) | payer MEDICARE, SELFPAY ==
[2025-05-18 08:24] LABS: Cholesterol 200 mg/dL (<200); HDL Cholesterol 85 mg/dL (>40); Triglycerides 62 mg/dL (<150)
== END 2025-05-18 06:19 | disposition home or self-care (01) ==
LOC: HO.LAB 06:18
PROVIDERS: PCP Nurse Practitioner Family; Visit Provider Nurse Practitioner Family
DX: E78.00 Pure hypercholesterolemia, unspecified (principal)
CPT/HCPCS: 36415; 80061